=== PATIENT | female | born 1940 | race Caucasian/White ===

== ENCOUNTER 2016-07-28 07:10 | Emergency (ER) | payer OTHER ==
[~2016-07-28] VITALS: Ht 167.6 cm; Wt 86.2 kg
--- NOTE | 2016-07-28 08:17 | CT SCAN REPORT ---
EXAMINATION: CT HEAD WITHOUT CONTRAST CLINICAL INFORMATION: Advancing dimension. Increased confusion COMPARISON: July 2016 TECHNIQUE: Contiguous axial imaging was performed from the skull base to vertex without intravenous administration of contrast. DLP: 600 mGy-cm FINDINGS: There is no evidence of acute intracranial hemorrhage or territorial infarction. No abnormal mass effect or midline shift is seen. Hemphill to white matter differentiation is well preserved. No extra-axial fluid collections are identified. Slight prominence of the ventricles commensurate with that of the basal cisterns and sulci compatible with age-related volume loss.. Patchy periventricular and deep white matter hypoattenuation consistent with mild small vessel ischemic changes. The osseous structures and soft tissues are normal. There is persistent but slightly increased chronic mucosal thickening of the maxillary sinuses IMPRESSION: No acute intracranial pathology.
--- NOTE | 2016-07-28 08:17 | RADIOLOGY REPORT ---
EXAMINATION: XR CHEST CLINICAL INFORMATION: Advancing dementia. Increased confusion. COMPARISON: None TECHNIQUE: 2 views of the chest were obtained. FINDINGS: No acute significant abnormality is noted involving the heart, lungs, mediastinum, bony thorax or soft tissues. Incidental note is made of mild multilevel spondylosis of the dorsal spine. Calcification of the dorsal aorta. IMPRESSION: No acute disease
--- NOTE | 2016-07-28 08:19 | ED AMS/SEIZURE/WEAK/DIZZY ---
History of Present Illness General Chief Complaint: Altered Mental Status Stated Complaint: AMS Source: patient, family, old records Exam Limitations: dementia Vital Signs & Intake/Output Vital Signs & Intake/Output Vital Signs Date Time Temp Pulse Resp B/P Pulse O2 O2 Flow FiO2 Ox Delivery Rate 07/28 1012 97.7 81 18 117/70 94 Room Air 07/28 0909 97.6 72 18 127/69 99 Room Air Room Air 07/28 0717 96.0 81 18 127/83 97 Room Air Allergies Coded Allergies: Penicillins (Severe, CONVULSIONS 12/29/15) STATINS ("REAL BAD BODY ACHES, CAN'T MOVE" 12/29/15) Reconcile Medications Donepezil HCl (Unknown Strength) TABLET (Unknown Dose) PO DAILY DEMENTIA ( Reported) Ergocalciferol (Vitamin D2) (Vitamin D2) 50,000 UNIT CAPSULE 1 CAP PO QFRI SUPPLEMENT (Reported) Levothyroxine Sodium (Levoxyl) (Unknown Strength) TABLET (Unknown Dose) PO DAILY AC THYROID (Reported) Losartan Potassium (Unknown Strength) TABLET (Unknown Dose) PO DAILY HEART ( Reported) Memantine HCl (Namenda) (Unknown Strength) TABLET (Unknown Dose) PO BID DEMENTIA (Reported) Pantoprazole Sodium (Protonix) 20 MG TABLET.DR 1 TAB PO DAILY GI (Reported) Pravastatin Sodium 20 MG TABLET 1 TAB PO DAILY CHOLESTEROL (Reported) Risperidone (Risperdal) (Unknown Strength) TABLET (Unknown Dose) PO QPM MENTAL HEALTH (Reported) Trazodone HCl 50 MG TABLET 1 TAB PO QPM insomnia Triage Note: 76 Y/O FEMALE BROUGHT IN BY FAMILY FOR EVAL OF ALTERED MENTAL STATUS SINCE YESTERDAY. PT HAS HX ALZHEIMERS AND FAMILY STATES "SHE WAS TALKING TO PEOPLE THAT WEREN'T THERE. YESTERDAY SHE TOOK ALL THE FOOD OUT OF THE REFRIGERATOR AND PUT CHEEZE WHIZ, [place] CITIZEN DRESSING AND JUICE IN A GLASS AND WAS GOING TO DRINK IT ...". FAMILY ALSO STATES PT IS USING THE BATHROOM MORE FREQUENTLY, QUESTIONS UTI. PT PLEASANT AND COOPERATIVE IN TRIAGE STATING "I FEEL PERFECTLY FINE". DENIES PAIN. DENIES N/V/D. AFEBRILE. Triage Nurses Notes Reviewed? yes Onset: Last week Duration: day(s):, continues in ED, getting worse Timing: recent history Injury Environment: home Severity: moderate No Modifying Factors: none LMP (ages 10-50): post menopausal : No Patient currently breastfeeds: No HPI: 1 week prior to admission daughter reports patient has had reverse sleeping pattern sleeping all day up all night. She has had worsening short-term memory recall bizarre eating such as putting any mustard on ravioli and making a concoction of cheesewhiz honey mustard and german dressing in a glass to drink. Her grandson notes she's had increased urinary frequency over the last day. There is no report of head injury fever chills nausea vomiting diarrhea abdominal pain chest pain shortness breath headache dysuria rash bleeding. Past History Travel History Traveled to [place] past 21 day No Medical History Any Pertinent Medical History? 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 No Review of Systems Review of Systems Constitutional: Reports: no symptoms. EENTM: Reports: no symptoms. Respiratory: Reports: no symptoms. Cardiovascular: Reports: no symptoms. GI: Reports: no symptoms. Genitourinary: Reports: see HPI, frequency. Musculoskeletal: Reports: no symptoms. Skin: Reports: no symptoms. Neurological/Psychological: Reports: see HPI, cognitive dysfunction, confusion. Hematologic/Endocrine: Reports: no symptoms. Immunologic/Allergic: Reports: no symptoms. All Other Systems: Reviewed and Negative Physical Exam Physical Exam General Appearance: well developed/nourished, alert, awake, anxious, comfortable , obese Head: atraumatic, normal appearance Eyes: Bilateral: normal appearance, PERRL, EOMI. Ears, Nose, Throat: normal pharynx, normal ENT inspection Neck: normal inspection, supple, full range of motion, no midline tenderness Respiratory: normal breath sounds, chest non-tender, no respiratory distress, quiet respiration, lungs clear Cardiovascular: regular rate/rhythm, normal peripheral pulses, norml femoral pulses equa Peripheral Pulses: 4+ carotid (R), 4+ carotid (L) Gastrointestinal: normal bowel sounds, soft, non-tender, no organomegaly Back: normal inspection, normal range of motion, no vertebral tenderness Extremities: normal range of motion, no ligament instability Neurologic/Psych: no motor/sensory deficits, awake, alert, normal gait, 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 Skin: intact, normal color, warm/dry Lymphatic: no anterior cervical mariusz Core Measures ACS in differential dx? No CVA/TIA Diagnosis: No Severe Sepsis Present: No Septic Shock Present: No Progress Differential Diagnosis: CVA/stroke, electrolyte imbalance, hypoglycemia, hypoxia , intracranial Hem., subarachnoid Hem. Plan of Care: Orders Procedure Date/time Status Straight Cath 07/28 916 Active TSH REFLEX 07/29 747 Complete COMPREHENSIVE METABOLIC PANEL 07/29 747 Complete CBC WITHOUT DIFFERENTIAL 07/29 747 Complete CULTURE,URINE 07/28 726 Active URINALYSIS 07/28 726 Complete Laboratory Tests 07/28/1645: Urinalysis MOD H, Urine Color YEL, Urine Clarity CLEAR, Urine pH 6.0, Ur Specific Mack <= 1.005, Urine Protein NEG, Urine Ketones NEG, Urine Nitrite NEG, Urine Bilirubin NEG, Urine Urobilinogen 0.2, Ur Leukocyte Esterase NEG, Ur Microscopic SEDIMENT EXAMINED, Urine RBC RARE, Urine WBC RARE, Ur Epithelial Cells MOD H, Urine Bacteria FEW H, Urine Mucus RARE, Urine Hemoglobin TRACE- INTACT, Urine Glucose NEG 07/28/16 0818: Anion Gap 13, Estimated GFR 34 L, BUN/Creatinine Ratio 10.7, Glucose 86, Calcium 9.7, Total Bilirubin 0.9, AST 22, ALT 35, Alkaline Phosphatase 108, Total Protein 7.2, Albumin 4.2, Globulin 3.0, Albumin/Globulin Ratio 1.4, TSH & T3 &Free T4 Intrp 0.880, CBC w Diff NO MAN DIFF REQ, RBC 4.54, MCV 88.9, MCH 30.1, RDW 13.2, MPV 7.0 L, Gran % 73.4, Lymphocytes % 19.2 L, Monocytes % 6.6, Eosinophils % 0.1, Basophils % 0.7, Absolute Granulocytes 6.4, Absolute Lymphocytes 1.7, Absolute Monocytes 0.6, Absolute Eosinophils 0, Absolute Basophils 0.1, PUBS MCHC 33.9 Microbiology 07/28 944 URINE ROUT: Urine Culture - RECD Diagnostic Imaging: Viewed by Me: Radiology Read, CT Scan. Discussed w/RAD: Radiology Read, CT Scan. Radiology Impression: no acute abnormality CXR Impression: no acute abnormality, no infiltrates Initial ED EKG: none Departure Departure Time of Disposition: 1049 Disposition: HOME OR SELF CARE Condition: Stable Clinical Impression Primary Impression: Altered mental status, unspecified Secondary Impressions: Dementia, Hyponatremia Referrals: VIRAL EVANS,TANI Busch Departure Forms: Customer Survey General Discharge Information Prescriptions: Current Visit Scripts Trazodone HCl 1 TAB PO QPM #30 TAB
[2016-07-28] MEDS ORDERED: LOSARTAN POTASS25 M1 PO (08:21)
[2016-07-28] MEDS ORDERED: PRAVASTATIN SOD20 M2 PO (08:21)
[2016-07-28] MEDS ORDERED: PROTONIX20 M1 PO (08:21)
[2016-07-28] MEDS ORDERED: DONEPEZIL HCL5 MG PO (08:22)
[2016-07-28] MEDS ORDERED: LEVOXYL50 MCG PO (08:22)
[2016-07-28] MEDS ORDERED: VITAMIN D250000 UNIT PO (08:23)
[2016-07-28] MEDS ORDERED: RISPERDAL1 M1 PO (08:23)
[2016-07-28] MEDS ORDERED: NAMENDA10 M2 PO (08:24)
[2016-07-28 08:32] LABS: ABSOLUTE BASOPHIL COUNT 0.1 /CUMM (0.0-0.2); ABSOLUTE EOSINOPHIL COUNT 0 /CUMM (0.0-0.7); ABSOLUTE GRANULOCYTE CT 6.4 /CUMM (1.4-6.5); ABSOLUTE LYMPH COUNT 1.7 /CUMM (1.2-3.4); ABSOLUTE MONOCYTE COUNT 0.6 /CUMM (0.10-0.60); BASOPHIL % 0.7 % (0.0-2.0); EOSINOPHIL % 0.1 % (0-5); GRANULOCYTE % 73.4 % (42.2-75.2); HEMATOCRIT 40.3 % (37-47); MEAN CORPUSCULAR HGB 30.1 PG (27.0-31.0); MEAN CORPUSCULAR HGB CONC 33.9 G/DL (33.0-37.0); MEAN CORPUSCULAR VOLUME 88.9 FL (81.0-99.0); PLATELET COUNT 464 /CUMM (130-400); RBC DISTRIBUTION WIDTH 13.2 % (11.5-14.5); RED BLOOD CELL CT 4.54 /CUMM (4.20-5.40); WHITE BLOOD CELL COUNT 8.7 /CUMM (4.8-10.8)
[2016-07-28 10:12] VITALS: BP 117/70
[2016-07-28] MEDS ORDERED: TRAZODONE HCL50 M1 PO (10:51)
== END 2016-07-28 11:01 ==
LOC: ERH 07:10
PROVIDERS: Emergency Medicine
DX: R41.82 Altered mental status, unspecified (principal); F03.90 Unspecified dementia, unspecified severity, without behavioral disturbance, psychotic disturbance, mood disturbance, and anxiety; E87.1 Hypo-osmolality and hyponatremia; E03.9 Hypothyroidism, unspecified; R35.0 Frequency of micturition
CPT/HCPCS: 81001; 87086

== ENCOUNTER → 2016-11-03 | Day surgery (SDC) | payer OTHER ==
[~2016-11-03] VITALS: Ht 167.6 cm; Wt 101.6 kg
[~2016-11-03] MED LIST: DONEPEZIL HCL5 MG PO; LEVOXYL50 MCG PO; LOSARTAN POTASS25 M1 PO; NAMENDA10 M2 PO; PRAVASTATIN SOD20 M2 PO; PROTONIX20 M1 PO; RISPERDAL1 M1 PO; TRAZODONE HCL50 M1 PO; VITAMIN D250000 UNIT PO
--- NOTE | 2016-11-03 10:32 | Operative Report ---
Operative/Inv Procedure Report Surgery Date: 11/03/16 Name of Procedure: Complex cataract extraction lens implantation left eye Pre-Operative Diagnosis: Complex age-related cataract left eye 20/150 vision Post-Operative Diagnosis: Same Estimated Blood Loss: none Surgeon/Lpn Medical Assistant: MAGALIE EVANS,CONCHA Jones Anesthesia: local monitored anesthesi Complications: None Operative/Procedure Note Note: The patient was brought to the operating room standard monitoring equipment was attached the patient was prepped and draped in the usual fashion for intraocular surgery. A lid speculum was placed to retract the lids. The case was begun by making a temporal incision with a 2.4 mm keratome. The eye was stabilized with a Merchant ring during this incision. 1 mL of non-preserved lidocaine was introduced into the anterior chamber to provide anesthesia. The anterior chamber was then filled and deepened with viscoelastic. Since the pupil was very small attempted dilation was done with intracameral epinephrine this did not work and so the iris was stretched using 2 Kuglen hooks introduced through the main and paracentesis sites. In a cross action manner the proximal were spread apart from each other to enlarge the iris. The anterior chamber was then deepened with viscoelastic. A curvilinear capsulorrhexis was achieved using a 30-gauge needle and is a cystotome and capsulorrhexis was finished using a Utrata forceps. A second or paracentesis incision was made temporally with a 1 mm MVR blade. The lens was then hydrodissected with balanced salt solution and found to be rotatable. The lens was emulsified using phacoemulsification and a modified four-quadrant cracking technique. The residual cortical material was removed using automated irrigation and aspiration and as much of the anterior capsular rim was cleaned as well as possible. The posterior capsule was cleaned first with the automated machine on a low setting and then manually with a Logan squeegee. The capsular bag was deepened with viscoelastic. The lens a Technis 1 21.0 Diopter placed into the bag under direct visualization and rotated so that the haptics were at 12 and 6:00. Viscoelastic was then removed from the eye by flushing it out and then by automated irrigation and aspiration. The eye was pressurized to a normal tone. Miostat was introduced into the anterior chamber to try and bring the pupil back down. 1/10 of a cc of vancomycin solution was introduced into the anterior chamber to provide antibiotic prophylaxis. The wounds were sealed by hydrating the stroma adjacent to them and the eye was left at a proper tone after the wounds were checked and found not to be leaking. The lid speculum was removed from the orbit. Antibiotic and steroid drops were placed on the eye and then the eye was shielded. Monitoring equipment was removed from the patient and the patient was removed from the operative suite to the holding area. The patient tolerated the procedure well and will be seen in the office tomorrow.
== END ==
LOC: STS 04:30
DX: H25.89 Other age-related cataract (principal); H21.2 Degeneration of iris and ciliary body; I10 Essential (primary) hypertension; J45.909 Unspecified asthma, uncomplicated; G30.9 Alzheimer's disease, unspecified; F02.80 Dementia in other diseases classified elsewhere, unspecified severity, without behavioral disturbance, psychotic disturbance, mood disturbance, and anxiety; Z86.73 Personal history of transient ischemic attack (TIA), and cerebral infarction without residual deficits
CPT/HCPCS: J2250; V2632

== ENCOUNTER 2016-11-23 18:37 | Observation (INO) | payer OTHER ==
[~2016-11-23] VITALS: Ht 167.6 cm; Wt 94.3 kg
[~2016-11-23 18:37] MED LIST changes: +CITALOPRAM HBR10 MG PO
--- NOTE | 2016-11-23 18:44 | NUR ---
PT STEPHANIE FROM [facility], PER EMS PATIENT HAD A 1-2 MIN SYNCOPAL EPISODE WHILE SEATED. PER FAMILY PATIENT STATED, "I DON'T FEEL WELL" AND THEN "WENT LIMP". PT DENIES CHEST PAIN OR SOB. PER FAMILY SHE HAD AN EPISODE OF INCONTINENCE AT THE TIME. NO KNOWN SEIZURE DISORDER.
--- NOTE | 2016-11-23 18:56 | ED SYNCOPE COMPLAINT ---
History of Present Illness General Chief Complaint: General Adult Stated Complaint: SYNCOPAL EPISODE Source: patient, family, old records, EMS Exam Limitations: dementia Vital Signs & Intake/Output Vital Signs & Intake/Output Vital Signs Date Time Temp Pulse Resp B/P B/P Pulse O2 O2 Flow FiO2 Mean Ox Delivery Rate 11/25 1159 96.7 72 20 140/70 11/25 1053 98.2 64 18 160/68 11/25 0949 64 160/68 ED Intake and Output 11/26 0000 11/25 1200 Intake Total 480 100 Output Total Balance 480 100 Intake, Oral 480 100 Number 1 Bowel Movements Allergies Coded Allergies: Penicillins (Severe, CONVULSIONS 12/29/15) STATINS ("REAL BAD BODY ACHES, CAN'T MOVE" 12/29/15) Triage Note: PT BIBA FROM [facility], PER EMS PATIENT HAD A 1-2 MIN SYNCOPAL EPISODE WHILE SEATED. PER FAMILY PATIENT STATED, "I DON'T FEEL WELL" AND THEN "WENT LIMP". PT DENIES CHEST PAIN OR SOB. PER FAMILY SHE HAD AN EPISODE OF INCONTINENCE AT THE TIME. NO KNOWN SEIZURE DISORDER. Triage Nurses Notes Reviewed? yes HPI: PT WAS SITTING OUTSIDE WITH HER FAMILY. SHE STATED THAT SHE DIDN'T FEEL WELL AND THEN HAD A WITNESSED SYNCOPAL EPISODE. SHE DID NOT FALL OUT OF THE CHAIR. SHE WAS LOWERED TO THE GROUND AND SHE WOKE UP. PT CURRENTLY FEELS FINE. SHE DENIES CHEST PAIN OR PALPITATIONS. PT HAS DEMENTIA AND IS UNABLE TO PROVIDE FURTHER HISTORY. (ALEX EVANS,BRAD Acosta) Reconcile Medications Amlodipine Besylate 5 MG TABLET 5 MG PO DAILY HYPERTENSION Citalopram Hydrobromide (Citalopram HBr) 10 MG TABLET 1 TAB PO QAM MENTAL HEALTH (Reported) Donepezil HCl (Unknown Strength) TABLET 10 MG PO AT BEDTIME MEMORY (Reported) Ergocalciferol (Vitamin D2) (Vitamin D2) 50,000 UNIT CAPSULE 1 CAP PO QFRI SUPPLEMENT (Reported) Levothyroxine Sodium (Levoxyl) (Unknown Strength) TABLET 37.5 MCG PO DAILY AC THYROID (Reported) Losartan Potassium 50 MG TABLET 50 MG PO DAILY HYPERTENSION Memantine HCl (Namenda) (Unknown Strength) TABLET 10 MG PO BID DEMENTIA ( Reported) Pantoprazole Sodium (Protonix) 40 MG TABLET.DR 1 TAB PO AT BEDTIME ACID REFLUX (Reported) Pravastatin Sodium 40 MG TABLET 1 TAB PO DAILY ACID REFLUX (Reported) Risperidone (Risperdal) (Unknown Strength) TABLET 0.5 MG PO QAM MENTAL HEALTH (Reported) (MARIA ALEJANDRA EVANS,JENNIFER) Past History Travel History Traveled to [place] past 21 day No Medical History Any Pertinent Medical History? 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 No (ALEX EVANS,BRAD Acosta) Review of Systems Review of Systems Constitutional: Reports: no symptoms. EENTM: Reports: no symptoms. Respiratory: Reports: no symptoms. Cardiovascular: Reports: no symptoms. GI: Reports: no symptoms. Genitourinary: Reports: no symptoms. Musculoskeletal: Reports: no symptoms. Skin: Reports: no symptoms. Neurological/Psychological: Reports: no symptoms. All Other Systems: Reviewed and Negative (ALEX EVANS,BRAD Acsota) Physical Exam Physical Exam General Appearance: well developed/nourished, alert, awake, anxious, mild distress Head: atraumatic Eyes: Bilateral: PERRL, EOMI. Ears, Nose, Throat: normal pharynx, normal ENT inspection, hearing grossly normal Neck: normal inspection, supple, full range of motion Respiratory: normal breath sounds, chest non-tender, no respiratory distress, lungs clear Cardiovascular: regular rate/rhythm, normal peripheral pulses Gastrointestinal: normal bowel sounds, soft, non-tender, no organomegaly Back: normal inspection, normal range of motion Extremities: normal inspection, normal capillary refill, normal range of motion, no edema Psychiatric: awake, alert, ORIENTED TO BASELINE PER FAMILY Cranial Nerves: normal hearing, normal speech, PERRL Motor/Sensory: no motor/sensory deficits Skin: intact, normal color, warm/dry Core Measures ACS in differential dx? Yes CVA/TIA Diagnosis: No Severe Sepsis Present: No Septic Shock Present: No (BRAD JOHNSON MD) Progress Differential Diagnosis: AMI, aortic dissection, aortic valve, drug induced syncope, orthostatic syncope, pericardial tamponade, pulmonary embolus, seizure, sick sinus syndrome, ventricular tach/fib Plan of Care: Orders Procedure Date/time Status Discharge Patient 11/25 UNK Active 7:16 PM PATIENT SIGNED OUT TO ME BY DR JOHNSON. PENDING LABS, IMAGING. (JENNIFER BESS MD) Pre-Hospital EKG: SR WIH DEEP T WAVE INVERSIONS. Hand-Off Endorsed To: JENNIFER BESS MD Endorsed Time: 1899 Pending: EKG, labs (ALEX EVANS,BRAD Acosta) Departure Departure Disposition: STILL A PATIENT Condition: Stable Clinical Impression Primary Impression: Syncope Referrals: CARTER EVANS,DOMINIK Dave (PCP/Family) Departure Forms: Customer Survey General Discharge Information (ALEX EVANS,BRAD Acosta) Departure Prescriptions: Current Visit Scripts Amlodipine Besylate 5 MG PO DAILY #30 TAB Losartan Potassium 50 MG PO DAILY #30 TAB Observation Note Spoke With: JAVIER SHINE MDJulio César Physician Advisor Notified: RUTH VALVERDE DO Place Patient In: Non-ED OBS Care Area Rationale for Observation: My rational for observation is as follows [TELE MONITOR, SERIAL EKG/TROPONIN, CARDIOLOGY EAVLUATION, NEURO EVALUATION, CIWA SCORING, SEIZURE PRECAUTIONS]. (JENNIFER BESS MD)
--- NOTE | 2016-11-23 19:14 | NUR ---
LABS SENT (BLUE,SST,LAV,PÉREZ)
[2016-11-23 19:16] LABS: ABSOLUTE BASOPHIL COUNT 0 /CUMM (0.0-0.2); ABSOLUTE EOSINOPHIL COUNT 0 /CUMM (0.0-0.7); ABSOLUTE GRANULOCYTE CT 6.1 /CUMM (1.4-6.5); ABSOLUTE MONOCYTE COUNT 0.4 /CUMM (0.10-0.60); BASOPHIL % 0.4 % (0.0-2.0); EOSINOPHIL % 0.6 % (0-5); GRANULOCYTE % 80.5 % (42.2-75.2); HEMATOCRIT 39.6 % (37-47); MEAN CORPUSCULAR HGB 31.4 PG (27.0-31.0); MEAN CORPUSCULAR HGB CONC 33.9 G/DL (33.0-37.0); MEAN CORPUSCULAR VOLUME 92.4 FL (81.0-99.0); MEAN PLATELET VOLUME 6.5 FL (7.4-10.4); PLATELET COUNT 307 /CUMM (130-400); RBC DISTRIBUTION WIDTH 13.9 % (11.5-14.5); RED BLOOD CELL CT 4.29 /CUMM (4.20-5.40); WHITE BLOOD CELL COUNT 7.6 /CUMM (4.8-10.8)
--- NOTE | 2016-11-23 19:31 | NUR ---
PER FAMILY PT WAS SITTING DOWN, EYES ROLLED TO BACK OF HEAD AND UNRESPONSIVE. PT PLACED ON FLOOR BY FAMILY. DAUGHTER REPORTS SHE DIDNT FEEL A PULSE, THEN PT SNORED LOUDLY AND CAME BEGAN TALKING. WAS APPROX EPISDODE LASTED LESS THAN 1 MINUTE. DAUGHTER REPORTS THAT PT HAS 3 BEERS NIGHTLY. PT IS ALERT TO NAME.
[2016-11-23 19:45] VITALS: BP 190/80
--- NOTE | 2016-11-23 20:16 | CT SCAN REPORT ---
EXAMINATION: CT HEAD WITHOUT CONTRAST CLINICAL INFORMATION: EKG changes, rule out mass, bleed syncopal episode COMPARISON: 07/28/2016 TECHNIQUE: Contiguous axial imaging was performed from the skull base to vertex without intravenous administration of contrast. FINDINGS: There is atrophy and white matter ischemic change. No midline shift. There is no mass effect. There is no hemorrhage. Basal cisterns appear patent. The posterior fossa risk grossly within normal limits. No extra-axial collection. IMPRESSION: Negative acute noncontrast CT of the brain. Once again atrophy and white matter ischemic changes noted. Persistent maxillary sinus disease. Cannot exclude an air-fluid level in left maxillary sinus
--- NOTE | 2016-11-23 20:23 | NUR ---
TO BEDSIDE COMMODE URINE TRIO SENT
[2016-11-23 20:45] VITALS: BP 189/82
--- NOTE | 2016-11-23 21:42 | NUR ---
URINE TRIO SENT.
--- NOTE | 2016-11-23 21:49 | NUR ---
PT ADMIITTED TO ROOM 189-1
--- NOTE | 2016-11-23 22:15 | History & Physical ---
COLLINS CHIN MD 11/23/16 3565: General Information and HPI MD Statement: I have seen and personally examined TIAGO POWERS I and documented this H&P. The patient is a 76 year old F who presented with a patient stated chief complaint of syncope. Source of Information: patient, family Exam Limitations: dementia History of Present Illness: 76 year old female with PMH significant for HTN, HLD, benign brain tumors, Alzheimers/vascular dementia, and hypothyroidism presents after a syncopal episode witnessed by family. Patient was at a family gathering when noted to not appear well. Patient stated she felt dizzy before her eyes rolled back, she became limp and lost consciousness for less than a minute. She was incontinent of urine at this time. According to family, patient did not seem to have post ictal confusion after the syncopal episode. Patient never fell out of the chair and family denies any falls or head trauma. She lives with her grandson and depends on grandson/daughter for iADLs but is able to ambulate and use the bathroom independently. Patient has intermittent headaches but periodic chest pain for many years that is attributed to indigestion, otherwise ROS is negative. Daughter Elisa has POA [phone]. PCP Manuel, MRI last week at [facility] Allergies/Medications Allergies: Coded Allergies: Penicillins (Severe, CONVULSIONS 12/29/15) STATINS ("REAL BAD BODY ACHES, CAN'T MOVE" 12/29/15) Compliance With Home Meds: GOOD Past History Travel History Traveled to [place] past 21 day No Medical History Neurological: Alzheimer's disease EENT: NONE Cardiovascular: hyperlipidemia Respiratory: NONE Gastrointestinal: GERD Hepatic: NONE Renal: NONE Musculoskeletal: osteoarthritis, ?FX NOSE Psychiatric: NONE Endocrine: hypothyroidism Blood Disorders: NONE Cancer(s): "3 BRAIN TUMORS" DIRECTOR OF MATERNITY SERVICES/Reproductive: NONE Surgical History Surgical History: cataract removal, hysterectomy Past Family/Social History Family History Relations & Conditions if any FATHER FH: brain aneurysm SISTER FH: stroke Psychosocial History ETOH Use: denies use Illicit Drug Use: denies illicit drug use Functional Ability ADLs Independent: toileting. Ambulation: independent IADLs Needs Assist: shopping, housework, finances, food prep, transportation, medication admin. Review of Systems Review of Systems Constitutional: Reports: no symptoms. EENTM: Reports: no symptoms. Cardiovascular: Reports: chest pain (attributed to indigestion), syncope. Respiratory: Denies: cough, short of breath. GI: Denies: abdominal pain, constipation, diarrhea, nausea. Genitourinary: Denies: dysuria, pain, urgency. Musculoskeletal: Reports: no symptoms. Skin: Reports: no symptoms. Neurological/Psychological: Reports: dementia, headache (occasional), other (unsteadiness). Exam & Diagnostic Data Last 24 Hrs of Vital Signs/I&O Vital Signs Date Time Temp Pulse Resp B/P B/P Pulse O2 O2 Flow FiO2 Mean Ox Delivery Rate 11/23 2217 85 20 190/89 11/23 2142 71 20 190/801 11/23 2044 82 20 189/82 11/23 204 80 20 189/82 98 Room Air 11/23 1945 98.1 67 20 190/80 11/23 1930 97 Room Air 11/23 1840 97.2 67 16 176/83 98 Nasal 2.0L Cannula Physical Exam General Appearance Alert, Cooperative, No Acute Distress Skin No Breakdown Skin Temp/Moisture Exam: Warm/Dry Sepsis Skin Exam (color): Normal for Ethnicity HEENT Atraumatic, PERRLA, EOMI, Mucous Membr. moist/pink Neck Supple, No JVD Cardiovascular Regular Rate, Normal S1, Normal S2, No Murmurs Lungs Clear to Auscultation, diminished breath sounds Abdomen Normal Bowel Sounds, Soft, No Tenderness, No Masses Neurological Normal Gait, Normal Speech, Strength at 5/5 X4 Ext, Normal Tone, Sensation Intact, Cranial Nerves 3-12 NL, Reflexes 2+ Extremities No Clubbing, No Cyanosis, No Edema, Normal Pulses Last 24 Hrs of Labs/Jimmy: Laboratory Tests 11/23/16 2020: Urinalysis LIGHT H, Urine Color YEL, Urine Clarity HAZY H, Urine pH 6.0, Ur Specific [place] 1.010, Urine Protein NEG, Urine Ketones NEG, Urine Nitrite NEG, Urine Bilirubin NEG, Urine Urobilinogen 0.2, Ur Leukocyte Esterase NEG, Ur Microscopic SEDIMENT EXAMINED, Urine RBC 1-3, Urine WBC 1-3 H, Ur Epithelial Cells FEW, Urine Hemoglobin TRACE-LYSED, Urine Glucose NEG 11/23/161904: Anion Gap 11, Estimated GFR 54 L, BUN/Creatinine Ratio 10.0, Glucose 111 H, Calcium 9.1, Total Bilirubin 0.9, AST 22, ALT 32, Alkaline Phosphatase 96, Troponin I 0.05, Total Protein 6.3, Albumin 4.0, Globulin 2.3, Albumin/Globulin Ratio 1.7, Prolactin 73.9 H, CBC w Diff NO MAN DIFF REQ, RBC 4.29, MCV 92.4, MCH 31.4 H, RDW 13.9, MPV 6.5 L, Gran % 80.5 H, Lymphocytes % 13.7 L, Monocytes % 4.8, Eosinophils % 0.6, Basophils % 0.4, Absolute Granulocytes 6.1, Absolute Lymphocytes 1.0 L, Absolute Monocytes 0.4, Absolute Eosinophils 0, Absolute Basophils 0, PUBS MCHC 33.9, Serum Alcohol < 10.0 Diagnostic Data EKG Results T wave inversion 1,AVL,chest leads Other Results CT head negative for hemorrhage and ischemic changes Assessment/Plan Assessment: 76 year old female with PMH significant for HTN, HLD, benign brain tumors, Alzheimers/vascular dementia, and hypothyroidism presents after a syncopal episode witnessed by family. 1. Syncope: vasovagal versus arrhythmia versus ACS verus seizure, seizure unlikely given lack of post ictal period in history. CT Head negative T wave inversion in 1, AVL and chest leads, will contact PCP to determine if these inversions are new. Admit to telemetry, monitor for arrythmia Rule out ACS with serial troponins and EKGs Check lipid profile Cardiology consult Echocardiogram Given ASA Neurology consult placed EEG ordered to evaluate seizure Consider starting Keppra for seizure ppx 2. Hypertension Patient's blood pressure was 185/90, responded well to 5mg IV hydralazine x 2. Losartan 50mg PO QD, HCTZ 12.5 mg PO QD monitor BP 3. Hyperlipidemia: Pravastatin 40mg PO QD, follow up lipid panel 4. History of brain tumor: History of benign brain tumors. Patient had recent MRI at [facility] request MRI report. 5. Dementia: Continue donepezil 10mg PO QHs, Risperidone 0.5mg QD, Citalopram 10mg, Namenda 10mg BID 6. Hypothyroidism: Synthroid 0.0375mg PO QD Request records from her PCP Dr. Machado Full Code Heart healthy diet DVT ppx-lovenox Patient's daughter Elisa POA [phone] As Ranked By This Provider Problem List: 1. Dementia 2. Syncope 3. Hypertension 4. Hyperlipidemia Core Measures/Miscellaneous Acute Coronary Syndrome ACS Diagnosis: No Cerebrovascular Accident CVA/TIA Diagnosis: No Congestive Heart Failure CHF Diagnosis: No VTE (View Protocol) VTE Risk Factors: Acute medical illness, Age > 40 [facility] d/t: No contraindications No VTE Pharm Prophylaxis d/t: No contraindications VTE Diagnosis: No VTE Type: NONE VTE Confirmed by (Test): NONE Sepsis (View Protocol) Severe Sepsis Present: No Septic Shock Septic Shock Present: No Miscellaneous Documentation Attending Case Discussed With: KAREN SHINE MD Primary Care Physician: DOMINIK MACHADO MD Patient sees these Specialists neurology Level of Patient Care: Telemetry Consults Needed: Consulting Specialty: Neurology GABE IBRAHIM 11/23/16 2243: Resident Review Statement Resident Statement: examined this patient, discussed with paid intern, agreed with paid intern Other Findings: Patient is 76-year-old female with past medical history significant for hypertension, hyperlipidemia, hypothyroidism, exam is dementia, most of dementia and 3 brain tumors diagnosed in 2009 not following with neurology last 6 years came in with chief complaint of syncopal episode this afternoon. Patient has history of severe dementia and history was taken from her daughter Elisa (BOWEN )was present and her rheumatoid type of interview. Cutting to her patient and family at the clinic and all of a sudden patient was complaining of not feeling good and was trying to go inside and felt dizzy and all of a sudden she passed out for 20 seconds during that she had urinary incontinence and all of a sudden family her that she is snoring and she clenched her teeth with tongue in between but she didn't bite her tongue, no seizure-like activity was noticed and she regained her consciousness within 20 seconds without any post syncopal confusion. Patient denied any palpitations, chest pain, change in her vision prior to or after syncopal episode. Patient is complaining of off-and-on chest pain/hardware within past few aria. She also experiencing intermittent headaches and multiple occasions with the last few seizures. Patient is a former smoker but she drinks alcohol on a regular basis 3-5 beers daily. She never had detox or any withdrawal symptoms. She lives at home with her grandson and her daughter visited her regularly and taking care of her medications and did he needs. Vital signs on admission were temperature 97.2, pulse 67, respiratory rate 16, blood pressure 176/83 and she was saturating 98% on 2 L nasal cannula, Labs were WBC count 7.6, hemoglobin 13.4, hematocrit 39.6, platelet count 307, sodium 136, potassium 3.9, BUNs 10, creatinine 1.0, glucose 111, negative troponins, prolactin 73.9. Urinalysis is clear, serum alcohol level less than 10. Head CT showed negative acute noncontrast CT of the brain EKG showed new T-wave inversion in lead 1 AP are at all chest leads. As compared to EKG in 2005 Physical examination Alert and oriented to time person and place Head atraumatic, anisocoria but both pupils are reactive to light and accommodation. Neck supple Chest clear to auscultate Abdomen soft with no organomegaly Extremities showed no edema or cyanosis On neurological examination, no neurological deficit noted, normal gait, 5 x 5 strength in all extremities. Assessment and plan Patient is 76-year-old female with a history of severe dementia, hypertension, hyperlipidemia and brain tumors came with an episode of syncope today and found to have new EKG changes as compared to previous EKG in 2005 We will observe patient patient on telemetric floor for next 24 hours and will take care for the following problems Problem #1 syncopal episode we will rule out arrhythmias/ACS/seizures Admit for monitoring Will check lipid profile, repeat labs in a.m. We will check echocardiogram We will call cardiology in a.m. Neurology was consulted and did call back from Dr. Reece case was discussed with him regarding suspicion of seizures and's advice regarding starting patient on Keppra. Upon discussion with Dr. Reece is not impressed with seizure and he thought this is most likely syncopal episode and we would not start patient Keppra now. We will do EEG tomorrow and we'll request formal neurology evaluation in a.m. Problem #2 history of hypertension/hyperlipidemia Will start patient on her home medications. Her blood pressure admission were on high site we will give her a single dose of antihypertensive to keep her blood pressure less than 160 systolic. Problem #3 history of brain tumor Had CAT scan without contrast was done and there was no evidence of brain lesion /mass. [facility] was called and head CT was read again by Dr. Chester and again no evidence of mass lesion was noticed. We will request records from her PCP Dr. Machado and as she had recent [facility] at [facility] we will request MRI report in a.m. Problem #4 nonspecific T-wave inversion seen in multiple chest leads and limb leads, not sure these are new or chronic as we don't have any recent EKG. We will request cardiology evaluation in a.m. We will rule out ACS with serial EKGs and troponins as she had history of nonspecific chest pain We will give patient a dose of aspirin Echocardiogram in a.m. Patient is full code Heart healthy diet Pharmacological DVT prophylaxis Of note patient's daughter Elisa who is her power of criminal attorney wants to be informed with all interventions and any new decisions. Her phone number is [phone]. FÁTIMA EVANS, [facility] 11/24/16 0139: General Information and HPI Allergies/Medications Home Med list Citalopram Hydrobromide (Citalopram HBr) 10 MG TABLET 1 TAB PO QAM MENTAL HEALTH (Reported) Donepezil HCl (Unknown Strength) TABLET 10 MG PO AT BEDTIME MEMORY (Reported) Ergocalciferol (Vitamin D2) (Vitamin D2) 50,000 UNIT CAPSULE 1 CAP PO QFRI SUPPLEMENT (Reported) Levothyroxine Sodium (Levoxyl) (Unknown Strength) TABLET 37.5 MCG PO DAILY AC THYROID (Reported) Losartan/Hydrochlorothiazide (Losartan-Hctz 50-12.5 MG Tab) 50 MG-12.5 MG TABLET 1 TAB PO DAILY HIGH BLOOD PRESSURE (Reported) Memantine HCl (Namenda) (Unknown Strength) TABLET 10 MG PO BID DEMENTIA ( Reported) Pantoprazole Sodium (Protonix) 40 MG TABLET.DR 1 TAB PO AT BEDTIME ACID REFLUX (Reported) Pravastatin Sodium 40 MG TABLET 1 TAB PO DAILY ACID REFLUX (Reported) Risperidone (Risperdal) (Unknown Strength) TABLET 0.5 MG PO QAM MENTAL HEALTH (Reported) Attending MD Review Statement Attending Statement Attending MD Statement: examined this patient, discuss w/resident/PA/ASSEMBLY INSPECTOR HELPER, agreed w/resident/PA/ASSEMBLY INSPECTOR HELPER, discussed with family Attending Assessment/Plan: 76 yo obese F with h/o HTN, hypothyroidism, dementia, GERD, 3 brain tumors ( benign, diagnosed 2009), is here for evaluation of a witnessed syncopal event while at a gathering today. Patient reported feeling dizzy and unwell before she slumped (went limp) in her chair. She was unresponsive for about 20 seconds, noted to be incontinent of urine without any active tonic clonic seizure activity. No previous h/o seizure. Upon awakening, patient was alert and not confused. She denied chest pain, palpitations, nausea or diaphoresis. Daughter reports that patient has been c/o heartburn/ gaseous discomfort in her chest for the past year. She has never been evaluated for a cardiac event. Vitals stable except for BP 190/80 --> 180/80. Neurologically intact on exam. 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 Labs: Na 136, troponin neg. Prolactin 73.9, glucose 111. UA neg. Alcohol neg. EKG: SR, diffuse TWI in I, aVL, V1-6 (new compared to EKG of 2005). Head CT: atrophy and white matter ischemic changes, maxillary sinus disease. 1. Syncope, although seizure seems to be a close possibility however patient had no post ictal confusion. Tele 23 Obs, rule out arrhythmias, check orthostats, serial EKG and troponin, obtain Echo, Cardio and Neuro consult. Patient has a h /o 3 brain tumors likely benign (diagnosed 2009) but never followed by a Neurologist. She underwent MRI 2 weeks back at [facility], we need to obtain results of this to assess if the lesions are increasing in size ? seizure from brain tumor. CT head does not show these lesions. This was discussed with oncall neurologist Dr. Reece, who did not think this is a primarily a seizure event, hence holding off on anti-epileptics. Will obtain EEG in AM. 2. Hypertensive urgency/ accelerated hypertension. We will resume her BP meds, will give additional labetalol IV as needed to keep SBP ~ 140-160 mmHg. 3. EKG changes ?acute vs. Chronic. Given patient has been c/o chest discomfort ? heartburn, we will rule out a primary cardiac event, with serial EKG and troponin, give aspirin, check lipid panel, TSH, free T4, HbA1c. Echo and Cardio consult. DVT ppx Hep SC. Full code. Plan of care was discussed with daughter and son in law at bedside. Daughter does not wish for any acute interventions without her knowledge. She would like to be informed about everything. She is the power of criminal attorney. Observation Initial Note - I have personally examined TIAGO POWERS I on 11/24/16 at 0139. The disposition of PRIYAROMINANARAYAN Angela is uncertain at this time and before a determination can be made, she requires a period of observation for the following reasons [syncopal episode, hypertensive urgency.]
[2016-11-23 22:17] VITALS: BP 190/89
--- NOTE | 2016-11-23 22:54 | NUR ---
REPORT CALLED TO CESAR CAMPUZANO
[2016-11-23 23:30] VITALS: BP 128/70
[2016-11-23] MEDS ORDERED: LOSARTAN-HCTZ1 EAC1 PO (23:56)
[2016-11-23] MEDS ORDERED: PROTONIX40 M3 PO (23:58)
[2016-11-23] MEDS ORDERED: PRAVASTATIN SOD40 M2 PO (23:59)
[2016-11-24 06:00] VITALS: BP 152/80
--- NOTE | 2016-11-24 09:38 | PN- Housestaff ---
Assessment/Plan Consulting Request: Consulting Specialty: Neurology
--- NOTE | 2016-11-24 09:39 | PN-Observation ---
FRANCIS LIMA 11/24/16 0938: Observation Note Observation Note _ I have personally examined TIAGO POWERS Ms. is 76 yo F Hospital Day 2 admitted to the hospital for syncope with an episode of urinary incontinence. She has a PMH of HTN, HLD, benign brain tumors, Alzheimer, vascular dementia, hypothyroidism. She is placed on 23 hour observation and is currently doing well. She is in NSR, HR 66-82. Orthostats negative. Her MRI brain (with/without contrast) records were obtained from [facility]. 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 DOS: 11/02/2016 showed small R frontal meningioma with slow growth, stable right vestibular schwannoma, mild to moderate cerebral volume loss. ECHO, EEG pending. Her discharge is pending findings. Assessment/Plan Assessment: Ms. Powers is 76 yo F Hospital Day 2 admitted to the hospital for syncope with an episode of urinary incontinence. She has a PMH of HTN, HLD, benign brain tumors, Alzheimer, vascular dementia, hypothyroidism. 1. Syncope * Continue telemetry monitoring * ECHO pending 2. Possible seizure * EEG ordered, no meds required at this time 3. Hypothyroidism * TSH level nl 4. HTN * Continue Losartan 50mg PO * Continue HCTZ 12.5 mg PO 5. Alzheimers * Continue Donepezil 10 mg QHS Problem List: 1. Syncope Consulting Request: Consulting Specialty: Neurology Subjective Follow-up For: Syncope Possible seizures Tele-Events Since Last Visit: NSR HR 66-82 Review of Systems Constitutional: Reports: see HPI. Objective Last 24 Hrs of Vital Signs/I&O Vital Signs Date Time Temp Pulse Resp B/P B/P Pulse O2 O2 Flow FiO2 Mean Ox Delivery Rate 11/24 1515 97.8 73 20 140/82 97 Room Air 07/05 0910 158/72 07/05 0600 97.2 68 18 152/80 94 Room Air 07/ 2330 97.7 72 20 128/70 99 Room Air / 2249 74 20 180/80 07/ 2217 85 20 190/89 / 2142 71 20 190/801 / 2045 82 20 189/82 / 2040 80 20 189/82 98 Room Air 11/23 1944 98.1 67 20 190/80 11/23 1930 97 Room Air 11/23 1840 97.2 67 16 176/83 98 Nasal 2.0L Cannula Intake & Output 11/24 1600 11/24 0800 11/24 0000 Intake Total 800 1000 Output Total Balance 800 1000 Intake, IV 1000 Intake, Oral 800 Patient 208 lb Weight Weight Estimated Measurement Method Physical Exam General Appearance: Alert, Oriented X3, Cooperative, No Acute Distress Cardiovascular: Normal S1, Normal S2 Lungs: Clear to Auscultation Abdomen: Normal Bowel Sounds, Soft, No Tenderness Neurological: Normal Gait, Normal Speech, Sensation Intact, 4/5 in RLE and LLE, 5/5 in RUE, RUE Current Medications: Current Medications Sig/Dennise Start time Last Medication Dose Route Stop Time Status Admin Acetaminophen 650 MG Q6P PRN 11/23 2244 AC PO Aspirin 0 .STK-MED ONE 11/24 2255 DC PO Aspirin 81 MG ONCE ONE 11/23 2244 DC 11/23 PO 11/23 Citalopram 10 MG QAM 11/24 1000 AC 11/24 Hydrobromide PO 0910 Donepezil HCl 10 MG AT BEDTIME 11/24 2200 DC PO Donepezil HCl 10 MG AT BEDTIME 11/24 0100 AC 11/24 PO 0142 Enoxaparin Sodium 40 MG DAILY 11/24 1000 AC 11/24 SC 0910 Hydralazine HCl 0 .STK-MED ONE 11/23 2246 DC .ROUTE Hydralazine HCl 10 MG ONCE ONE 11/23 2244 DC 11/23 IV 11/23 Hydrochlorothiazide 12.5 MG DAILY 11/24 1000 AC 11/24 PO 0910 Ibuprofen 600 MG Q6P PRN 11/23 2244 AC PO Insulin Human Regular 8 UNITS .STK-MED ONE 11/24 0611 DC IV 11/24 0612 Levothyroxine Sodium 0.0375 MG DAILY AC 11/24 0700 AC 11/24 PO 0910 Losartan Potassium 50 MG DAILY 11/24 1000 AC 11/24 PO 0910 Memantine 10 MG BID 11/24 0005 AC 11/24 PO 0909 Omeprazole 40 MG DAILY AC 11/24 0700 AC 11/24 PO 0651 Oxycodone HCl 10 MG Q6P PRN 07/5 AC PO Pravastatin Sodium 40 MG 1700 11/24 1700 AC 11/24 PO 1627 Risperidone 0.5 MG QAM 11/24 1000 AC 11/24 PO 0910 Sodium Chloride 1,000 ML BOLUS ONE 11/23 1899 DC 11/23 IV 11/23 Last 24 Hrs of Labs/Mics: Laboratory Tests 11/24/16 0930: Troponin I Cancelled 11/24/16 09: Anion Gap 9, Estimated GFR 54 L, BUN/Creatinine Ratio 10.0, Troponin I 0.05, Triglycerides 63, Cholesterol 169, LDL Cholesterol, Calc 97, HDL Cholesterol 60, Cholesterol/HDL Ratio 3, TSH 2.980, CBC w Diff NO MAN DIFF REQ, RBC 4.06 L, MCV 92.2, MCH 31.3 H, RDW 13.8, MPV 7.5, Gran % 71.7, Lymphocytes % 21.0, Monocytes % 5.9, Eosinophils % 1.0, Basophils % 0.4, Absolute Granulocytes 4.9, Absolute Lymphocytes 1.4, Absolute Monocytes 0.4, Absolute Eosinophils 0.1, Absolute Basophils 0, PUBS MCHC 34.0 11/24/16 0200: Troponin I 0.06 11/23/16 2020: Urinalysis LIGHT H, Urine Color YEL, Urine Clarity HAZY H, Urine pH 6.0, Ur Specific [place] 1.010, Urine Protein NEG, Urine Ketones NEG, Urine Nitrite NEG, Urine Bilirubin NEG, Urine Urobilinogen 0.2, Ur Leukocyte Esterase NEG, Ur Microscopic SEDIMENT EXAMINED, Urine RBC 1-3, Urine WBC 1-3 H, Ur Epithelial Cells FEW, Urine Hemoglobin TRACE-LYSED, Urine Glucose NEG 11/23/161904: Anion Gap 11, Estimated GFR 54 L, BUN/Creatinine Ratio 10.0, Glucose 111 H, Calcium 9.1, Total Bilirubin 0.9, AST 22, ALT 32, Alkaline Phosphatase 96, Troponin I 0.05, Total Protein 6.3, Albumin 4.0, Globulin 2.3, Albumin/Globulin Ratio 1.7, Prolactin 73.9 H, CBC w Diff NO MAN DIFF REQ, RBC 4.29, MCV 92.4, MCH 31.4 H, RDW 13.9, MPV 6.5 L, Gran % 80.5 H, Lymphocytes % 13.7 L, Monocytes % 4.8, Eosinophils % 0.6, Basophils % 0.4, Absolute Granulocytes 6.1, Absolute Lymphocytes 1.0 L, Absolute Monocytes 0.4, Absolute Eosinophils 0, Absolute Basophils 0, PUBS MCHC 33.9, Serum Alcohol < 10.0 KADNIS FAGAN 11/24/16 0955: Observation Note Observation Note _ I have personally examined TIAGO POWERS I. her disposition is uncertain at this time. Before a determination can be made, she requires continued observation for the following reasons Assessment/Plan Plan: ASSESSMENT 1. Syncope. Obs, TELE , orthostats NEGATIVE, serial EKG and troponin negative, obtain Echo, Cardio and Neuro consult. Patient has a h/o 3 brain tumors likely benign (diagnosed 2009) but never followed by a Neurologist. She underwent MRI 2 weeks back at [facility], stable MRI findings. CT head does not show these lesions. This was discussed with oncall neurologist Dr. Reece, who did not think this is a primarily a seizure event, hence holding off on anti- epileptics. f/u EEG. 2. Hypertensive urgency/ accelerated hypertension. resumed home meds 3. EKG changes non specific. DVT ppx Hep SC. Full code. Objective Last 24 Hrs of Vital Signs/I&O Vital Signs Date Time Temp Pulse Resp B/P B/P Pulse O2 O2 Flow FiO2 Mean Ox Delivery Rate 11/24 0910 158/72 07/05 0600 97.2 68 18 152/80 94 Room Air 07/ 2330 97.7 72 20 128/70 99 Room Air / 2249 74 20 180/80 07/04 2217 85 20 190/89 / 2142 71 20 190/801 07/ 2045 82 20 189/82 07/ 2040 80 20 189/82 98 Room Air 07/04 1945 98.1 67 20 190/80 07/04 1930 97 Room Air 07/04 1840 97.2 67 16 176/83 98 Nasal 2.0L Cannula Intake & Output / 1600 07/05 0800 07/05 0000 Intake Total 800 1000 Output Total Balance 800 1000 Intake, IV 1000 Intake, Oral 800 Patient 94.347 kg Weight Weight Estimated Measurement Method
[2016-11-24 10:56] LABS: ABSOLUTE BASOPHIL COUNT 0 /CUMM (0.0-0.2); ABSOLUTE EOSINOPHIL COUNT 0.1 /CUMM (0.0-0.7); ABSOLUTE GRANULOCYTE CT 4.9 /CUMM (1.4-6.5); ABSOLUTE LYMPH COUNT 1.4 /CUMM (1.2-3.4); ABSOLUTE MONOCYTE COUNT 0.4 /CUMM (0.10-0.60); BASOPHIL % 0.4 % (0.0-2.0); GRANULOCYTE % 71.7 % (42.2-75.2); HEMATOCRIT 37.4 % (37-47); MEAN CORPUSCULAR HGB 31.3 PG (27.0-31.0); MEAN CORPUSCULAR VOLUME 92.2 FL (81.0-99.0); MEAN PLATELET VOLUME 7.5 FL (7.4-10.4); PLATELET COUNT 295 /CUMM (130-400); RBC DISTRIBUTION WIDTH 13.8 % (11.5-14.5); RED BLOOD CELL CT 4.06 /CUMM (4.20-5.40); WHITE BLOOD CELL COUNT 6.8 /CUMM (4.8-10.8)
--- NOTE | 2016-11-24 11:41 | Cons- Cardiology ---
General Information and HPI Consulting Request Date of Consult: 11/24/16 Requested By: FÁTIMA EVANS,KAREN Reason for Consult: SYNCOPE Source of Information: patient, family Exam Limitations: poor historian History of Present Illness: This is a 76-year-old lady with a past medical history significant for bening brain tumors diagnosed 6 years ago with a f/u MRI 2 weeks ago showing non progression/growth, hypertension, hyperlipidemia, vascular dementia, hypothyroidism, was brought in after having a witnessed syncopal episode. Pt is a poor historian, her daughter who was at bedside contributed a significant part of the history gathering. Patient reports that yesterday, while outisde seated on a chair at November 23 alliance party, she stated to her family members that she was not feeling normal and felt dizzy and looked pale. Immediately after her complaint, she was noticed to be limp and unresponsive. Family member moved her from the chair to the ground and less than a minute she regained conciousness. She was noted to have urinary incontinence (new), however no shaking/jerky movements,automatism, or posticital confusion was noted. Pt also denied any chest pain,palpiation, but was noted to have low 02 sats by EMS (according to family). Pt's daughter endorses a possible remote history of arrhythmias about 30 years ago and congenital heart problem. Patient is unsure of any cardiac history and states that medical issues were managed by her before he . She also reports that her primary care will not be able to report her previous old history. Allergies/Medications Allergies: Coded Allergies: Penicillins (Severe, CONVULSIONS 12/29/15) STATINS ("REAL BAD BODY ACHES, CAN'T MOVE" 12/29/15) Home Med List: Amlodipine Besylate 5 MG TABLET 5 MG PO DAILY HYPERTENSION Citalopram Hydrobromide (Citalopram HBr) 10 MG TABLET 1 TAB PO QAM MENTAL HEALTH (Reported) Donepezil HCl (Unknown Strength) TABLET 10 MG PO AT BEDTIME MEMORY (Reported) Ergocalciferol (Vitamin D2) (Vitamin D2) 50,000 UNIT CAPSULE 1 CAP PO QFRI SUPPLEMENT (Reported) Levothyroxine Sodium (Levoxyl) (Unknown Strength) TABLET 37.5 MCG PO DAILY AC THYROID (Reported) Losartan Potassium 50 MG TABLET 50 MG PO DAILY HYPERTENSION Memantine HCl (Namenda) (Unknown Strength) TABLET 10 MG PO BID DEMENTIA ( Reported) Pantoprazole Sodium (Protonix) 40 MG TABLET.DR 1 TAB PO AT BEDTIME ACID REFLUX (Reported) Pravastatin Sodium 40 MG TABLET 1 TAB PO DAILY ACID REFLUX (Reported) Risperidone (Risperdal) (Unknown Strength) TABLET 0.5 MG PO QAM MENTAL HEALTH (Reported) Review of Systems Review of Systems: Constitutional: Reports: no symptoms. EENTM: Reports: no symptoms. Cardiovascular: Reports: chest pain (attributed to indigestion), syncope. Respiratory: Denies: cough, short of breath. GI: Denies: abdominal pain, constipation, diarrhea, nausea. Genitourinary: Denies: dysuria, pain, urgency. Musculoskeletal: Reports: no symptoms. Skin: Reports: no symptoms. Neurological/Psychological: Reports: dementia, headache (occasional), other (unsteadiness). 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 Ambulation: independent IADLs Needs Assist: shopping, housework, finances, food prep, transportation, medication admin. Exam & Diagnostic Data Vital Signs and I&O Vital Signs Date Time Temp Pulse Resp B/P B/P Pulse O2 O2 Flow FiO2 Mean Ox Delivery Rate 11/24 0910 158/72 07/ 0600 97.2 68 18 152/80 94 Room Air 11/23 2330 97.7 72 20 128/70 99 Room Air 11/23 2249 74 20 180/80 11/23 2217 85 20 190/89 11/23 2142 71 20 190/801 11/23 2045 82 20 189/82 11/23 2040 80 20 189/82 98 Room Air 11/23 1945 98.1 67 20 190/80 / 1930 97 Room Air 11/23 1840 97.2 67 16 176/83 98 Nasal 2.0L Cannula Intake & Output 11/24 0000 11/23 0811/23 0000 Intake Total 800 1000 Output Total Balance 800 1000 Intake, IV 1000 Intake, Oral 800 Patient 94.347 kg Weight Weight Estimated Measurement Method Physical Exam: General Appearance Alert, Cooperative, No Acute Distress Skin No Breakdown Skin Temp/Moisture Exam: Warm/Dry Sepsis Skin Exam (color): Normal for Ethnicity HEENT Atraumatic, PERRLA, EOMI, Mucous Membr. moist/pink Neck Supple, No JVD Cardiovascular Regular Rate, Normal S1, Normal S2, No Murmurs Lungs Clear to Auscultation, diminished breath sounds Abdomen Normal Bowel Sounds, Soft, No Tenderness, No Masses Neurological Normal Gait, Normal Speech, Strength at 5/5 X4 Ext, Normal Tone, Sensation Intact, Cranial Nerves 3-12 NL, Reflexes 2+ Extremities No Clubbing, No Cyanosis, No Edema, Normal Pulses Labs/Jimmy Results: Laboratory Tests 11/24 11/24 11/24 0930 0930 0200 Chemistry Sodium (137 - 145 mmol/L) 136 L Potassium (3.5 - 5.1 mmol/L) 4.1 Chloride (98 - 107 mmol/L) 100 Carbon Dioxide (22 - 30 mmol/L) 26 Anion Gap (5 - 16) 9 BUN (7 - 17 mg/dL) 10 Creatinine (0.5 - 1.0 mg/dL) 1.0 Estimated GFR (>60 ml/min) 54 L BUN/Creatinine Ratio (7 - 25 %) 10.0 Troponin I (< 0.11 ng/ml) Cancelled 0.05 0.06 Triglycerides (<150 mg/dL) 63 Cholesterol (<200 MG/DL) 169 LDL Cholesterol, Calc (65 - 129 mg/dL) 97 HDL Cholesterol (40 - 60 mg/dL) 60 Cholesterol/HDL Ratio (0.00 - 4.23 %) 3 Hematology CBC w Diff NO MAN DIFF REQ WBC (4.8 - 10.8 /CUMM) 6.8 RBC (4.20 - 5.40 /CUMM) 4.06 L Hgb (12.0 - 16.0 G/DL) 12.7 Hct (37 - 47 %) 37.4 MCV (81.0 - 99.0 FL) 92.2 MCH (27.0 - 31.0 PG) 31.3 H RDW (11.5 - 14.5 %) 13.8 Plt Count (130 - 400 /CUMM) 295 MPV (7.4 - 10.4 FL) 7.5 Gran % (42.2 - 75.2 %) 71.7 Lymphocytes % (20.5 - 51.1 %) 21.0 Monocytes % (1.7 - 9.3 %) 5.9 Eosinophils % (0 - 5 %) 1.0 Basophils % (0.0 - 2.0 %) 0.4 Absolute Granulocytes (1.4 - 6.5 /CUMM) 4.9 Absolute Lymphocytes (1.2 - 3.4 /CUMM) 1.4 Absolute Monocytes (0.10 - 0.60 /CUMM) 0.4 Absolute Eosinophils (0.0 - 0.7 /CUMM) 0.1 Absolute Basophils (0.0 - 0.2 /CUMM) 0 PUBS MCHC (33.0 - 37.0 G/DL) 34.0 /11/23 2020 1905 Chemistry Sodium (137 - 145 mmol/L) 136 L Potassium (3.5 - 5.1 mmol/L) 3.9 Chloride (98 - 107 mmol/L) 98 Carbon Dioxide (22 - 30 mmol/L) 26 Anion Gap (5 - 16) 11 BUN (7 - 17 mg/dL) 10 Creatinine (0.5 - 1.0 mg/dL) 1.0 Estimated GFR (>60 ml/min) 54 L BUN/Creatinine Ratio (7 - 25 %) 10.0 Glucose (65 - 99 mg/dL) 111 H Calcium (8.4 - 10.2 mg/dL) 9.1 Total Bilirubin (0.2 - 1.3 mg/dL) 0.9 AST (14 - 36 U/L) 22 ALT (9 - 52 U/L) 32 Alkaline Phosphatase (<127 U/L) 96 Troponin I (< 0.11 ng/ml) 0.05 Total Protein (6.3 - 8.2 g/dL) 6.3 Albumin (3.5 - 5.0 g/dL) 4.0 Globulin (1.9 - 4.2 gm/dL) 2.3 Albumin/Globulin Ratio (1.1 - 2.2 %) 1.7 Prolactin (3.0 - 18.6 ng/mL) 73.9 H Hematology CBC w Diff NO MAN DIFF REQ WBC (4.8 - 10.8 /CUMM) 7.6 RBC (4.20 - 5.40 /CUMM) 4.29 Hgb (12.0 - 16.0 G/DL) 13.4 Hct (37 - 47 %) 39.6 MCV (81.0 - 99.0 FL) 92.4 MCH (27.0 - 31.0 PG) 31.4 H RDW (11.5 - 14.5 %) 13.9 Plt Count (130 - 400 /CUMM) 307 MPV (7.4 - 10.4 FL) 6.5 L Gran % (42.2 - 75.2 %) 80.5 H Lymphocytes % (20.5 - 51.1 %) 13.7 L Monocytes % (1.7 - 9.3 %) 4.8 Eosinophils % (0 - 5 %) 0.6 Basophils % (0.0 - 2.0 %) 0.4 Absolute Granulocytes (1.4 - 6.5 /CUMM) 6.1 Absolute Lymphocytes (1.2 - 3.4 /CUMM) 1.0 L Absolute Monocytes (0.10 - 0.60 /CUMM) 0.4 Absolute Eosinophils (0.0 - 0.7 /CUMM) 0 Absolute Basophils (0.0 - 0.2 /CUMM) 0 PUBS MCHC (33.0 - 37.0 G/DL) 33.9 Toxicology Serum Alcohol (<10 MG/DL) < 10.0 Urines Urinalysis LIGHT H Urine Color (YEL,AMB,STR) YEL Urine Clarity (CLEAR) HAZY H Urine pH (5.0 - 8.0) 6.0 Ur Specific [place] (1.001 - 1.035) 1.010 Urine Protein (NEG,<30 MG/DL) NEG Urine Ketones (NEG) NEG Urine Nitrite (NEG) NEG Urine Bilirubin (NEG) NEG Urine Urobilinogen (0.1 - 1.0 EU/dl) 0.2 Ur Leukocyte Esterase (NEG) NEG Ur Microscopic SEDIMENT EXAMINED Urine RBC (0 - 5 /HPF) 1-3 Urine WBC (0 - 2 /HPF) 1-3 H Ur Epithelial Cells (NONE,FEW) FEW Urine Hemoglobin (NEG) TRACE-LYSED Urine Glucose (N MG/DL) NEG Diagnostic Data EKG Results Abnormal diffuse T wave inversion in precordial,lead 1 and AVL leads. Other Results SERVICE DATE: 11/23/16 EXAM TYPE: CAT - CT HEAD WO IV CONTRAST EXAMINATION: CT HEAD WITHOUT CONTRAST CLINICAL INFORMATION: EKG changes, rule out mass, bleed syncopal episode COMPARISON: 07/28/2016 TECHNIQUE: Contiguous axial imaging was performed from the skull base to vertex without intravenous administration of contrast. FINDINGS: There is atrophy and white matter ischemic change. No midline shift. There is no mass effect. There is no hemorrhage. Basal cisterns appear patent. The posterior fossa risk grossly within normal limits. No extra-axial collection. IMPRESSION: Negative acute noncontrast CT of the brain. Once again atrophy and white matter ischemic changes noted. Persistent maxillary sinus disease. Cannot exclude an air-fluid level in left maxillary sinus DICTATED BY: RUTH IQBAL MD Assessment/Plan Assessment/Plan This is a 76-year-old lady with multiple past medical history of benign multiple brain tumors with no progression since diagnosis 6 years ago, hypertension, hyperlipidemia, Alzheimer's, vascular dementia, hypothyroidism presented after having a witnessed syncopal event lasting less than a minute. No seizure-like activities was noted, no noted overnight telemetry events unremarkable for any arrhythmias. Orthostatics are negative. Blood glucose obtained was unremarkable for any hypoglycemia during admission. It is noted that the patient EKG shows T -wave inversions in lead 1, aVL and precordial leads with family members noting that last EKG done in 2005 did not have these findings.. Impression * Witnessed syncopal event. Patient with a history of benign brain tumors having an episode of syncopal events is always concerning for seizures. However the lack of seizure-like activities and no focal neurological deficits makes it unlikely that the brain tumors are responsible for patient's presentation. Patient's family does give a remote history of possible arrhythmias and congenital heart disease, therefore her syncopal event could possibly be cardiogenic. She does have T wave inversions, however no conduction abnormality on EKG noted, and her o/n telemetry monitoring was uneventful. ACS ruled out as no chest pain and negative trops/negative ischemic changes on EKG other than T wave inversion. Vasovagal syncope is also a possible etiology (she did have a premonition), esepcially if cardio/seizures is completely excluded. She does take HCTZ and given she was outside on a hot day,dehydration is possible cause, however her ortho stats were negative,did not appear dry on admission, and she did not have any tachycardia. * History of hypertension. Currenlty uncontrolled. * History of hyperlipidemia * History of hypothyroidism Plan * Will await echocardiogram to rule out any structural abnormalities * Obtain TSH levels * Continue Losartan/hctz * Other medical condition: management per medical team * Continue to Telemetry monitoring Problem List: 1. Syncope Consult Acknowledgment - Thank you for your consult request.
--- NOTE | 2016-11-24 12:06 | Cons- Neurology ---
General Information and HPI Consulting Request Date of Consult: 11/24/16 Requested By: FÁTIMA EVANS,ALISSONALAKSHMI Reason for Consult: Transient alteration of consciousness Source of Information: family, housestaff Exam Limitations: unable to give history History of Present Illness: 76 year old woman with known dementia was sitting outside yesterday afternoon for a barbecue. She told her daughter she did not feel well and within a few moments while still seated her head slumped forward and she became unresponsive. Her daughter believes her eyes rolled up he shouldn't lost control of her bladder but tongue biting and no abnormal motor activity. When assistance cane they placed her flat on the ground and she began to wake up. She was at her usual level of mentation. No history of seizures. Remote history of dysrhythmias. No other associated complaints or problems were noted by family Allergies/Medications Allergies: Coded Allergies: Penicillins (Severe, CONVULSIONS 12/29/15) STATINS ("REAL BAD BODY ACHES, CAN'T MOVE" 12/29/15) Home Med List: Citalopram Hydrobromide (Citalopram HBr) 10 MG TABLET 1 TAB PO QAM MENTAL HEALTH (Reported) Donepezil HCl (Unknown Strength) TABLET 10 MG PO AT BEDTIME MEMORY (Reported) Ergocalciferol (Vitamin D2) (Vitamin D2) 50,000 UNIT CAPSULE 1 CAP PO QFRI SUPPLEMENT (Reported) Levothyroxine Sodium (Levoxyl) (Unknown Strength) TABLET 37.5 MCG PO DAILY AC THYROID (Reported) Losartan/Hydrochlorothiazide (Losartan-Hctz 50-12.5 MG Tab) 50 MG-12.5 MG TABLET 1 TAB PO DAILY HIGH BLOOD PRESSURE (Reported) Memantine HCl (Namenda) (Unknown Strength) TABLET 10 MG PO BID DEMENTIA ( Reported) Pantoprazole Sodium (Protonix) 40 MG TABLET.DR 1 TAB PO AT BEDTIME ACID REFLUX (Reported) Pravastatin Sodium 40 MG TABLET 1 TAB PO DAILY ACID REFLUX (Reported) Risperidone (Risperdal) (Unknown Strength) TABLET 0.5 MG PO QAM MENTAL HEALTH (Reported) Current Medications: Current Medications Sig/Dennise Start time Last Medication Dose Route Stop Time Status Admin Acetaminophen 650 MG Q6P PRN 11/23 2244 AC PO Aspirin 0 .STK-MED ONE 11/24 2255 DC PO Aspirin 81 MG ONCE ONE 11/23 2244 DC 11/23 PO 11/23 2245 224 Citalopram 10 MG QAM 11/24 1000 AC 11/24 Hydrobromide PO 0910 Donepezil HCl 10 MG AT BEDTIME 11/24 2200 DC PO Donepezil HCl 10 MG AT BEDTIME / 0100 AC 11/24 PO 0142 Enoxaparin Sodium 40 MG DAILY 11/24 1000 AC 11/24 SC 0910 Hydralazine HCl 0 .STK-MED ONE 11/23 2246 DC .ROUTE Hydralazine HCl 10 MG ONCE ONE 11/23 2245 DC 11/23 IV 11/23 2245 224 Hydrochlorothiazide 12.5 MG DAILY 11/24 1000 AC 11/24 PO 0910 Ibuprofen 600 MG Q6P PRN 11/23 2245 AC PO Levothyroxine Sodium 0.0375 MG DAILY AC 11/24 0700 AC 11/24 PO 0910 Losartan Potassium 50 MG DAILY 11/24 1000 AC 11/24 PO 0910 Memantine 10 MG BID 11/24 0005 AC 11/24 PO 0909 Omeprazole 40 MG DAILY AC 11/24 0700 AC 11/24 PO 0651 Oxycodone HCl 10 MG Q6P PRN 11/23 2245 AC PO Pravastatin Sodium 40 MG 1700 11/24 1700 AC PO Risperidone 0.5 MG QAM 11/24 1000 AC 11/24 PO 0910 Sodium Chloride 1,000 ML BOLUS ONE 11/23 1900 DC 11/23 IV 11/23 1959 1907 Review of Systems Review of Systems: ROS: A complete medical systems review was obtained. No pertinent complaints were found. 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 Ambulation: independent IADLs Needs Assist: shopping, housework, finances, food prep, transportation, medication admin. Exam & Diagnostic Data Vital Signs and I&O Vital Signs Date Time Temp Pulse Resp B/P B/P Pulse O2 O2 Flow FiO2 Mean Ox Delivery Rate 11/24 0910 158/72 11/24 06 97.2 68 18 152/80 94 Room Air 11/23 2330 97.7 72 20 128/70 99 Room Air 11/23 2249 74 20 180/80 11/23 2217 85 20 190/89 11/23 2142 71 20 190/801 11/23 2045 82 20 189/82 11/23 2040 80 20 189/82 98 Room Air 11/23 1945 98.1 67 20 190/80 11/23 1930 97 Room Air 11/23 1840 97.2 67 16 176/83 98 Nasal 2.0L Cannula Intake & Output 11/24 1600 11/24 0800 07 0000 Intake Total 800 1000 Output Total Balance 800 1000 Intake, IV 1000 Intake, Oral 800 Patient 208 lb Weight Weight Estimated Measurement Method Physical Exam: On exam she is lying comfortably in bed, fully awake and engaged in conversation with family. 8. No bruits or murmur. intact. Logically she was oriented to name only, could not give the date or location. There were no language errors in casual conversation, no dysarthria but her speech is mildly accented from [place]. General fund of knowledge and memory severely impaired. Visual christian full. Pupils quite small, 2 mm on the right and about 2.5 mm on the left, unable to see a light reaction. Eye movements were full in all directions, no ptosis, visual christian full. Unable to visualize fundi due to myosis. No facial asymmetry, tongue protrusion midline, uvula midline, shoulder shrug symmetric. Handgrips strong, moves 4 extremities normally, tone normal. No cerebellar signs. Tendon reflexes hypoactive but symmetric, plantar responses downgoing Last 48 Hours of Lab Results: Laboratory Tests 11/24 11/24 11/24 0930 0930 0200 Chemistry Sodium (137 - 145 mmol/L) 136 L Potassium (3.5 - 5.1 mmol/L) 4.1 Chloride (98 - 107 mmol/L) 100 Carbon Dioxide (22 - 30 mmol/L) 26 Anion Gap (5 - 16) 9 BUN (7 - 17 mg/dL) 10 Creatinine (0.5 - 1.0 mg/dL) 1.0 Estimated GFR (>60 ml/min) 54 L BUN/Creatinine Ratio (7 - 25 %) 10.0 Troponin I (< 0.11 ng/ml) Cancelled 0.05 0.06 Triglycerides (<150 mg/dL) 63 Cholesterol (<200 MG/DL) 169 LDL Cholesterol, Calc (65 - 129 mg/dL) 97 HDL Cholesterol (40 - 60 mg/dL) 60 Cholesterol/HDL Ratio (0.00 - 4.23 %) 3 Hematology CBC w Diff NO MAN DIFF REQ WBC (4.8 - 10.8 /CUMM) 6.8 RBC (4.20 - 5.40 /CUMM) 4.06 L Hgb (12.0 - 16.0 G/DL) 12.7 Hct (37 - 47 %) 37.4 MCV (81.0 - 99.0 FL) 92.2 MCH (27.0 - 31.0 PG) 31.3 H RDW (11.5 - 14.5 %) 13.8 Plt Count (130 - 400 /CUMM) 295 MPV (7.4 - 10.4 FL) 7.5 Gran % (42.2 - 75.2 %) 71.7 Lymphocytes % (20.5 - 51.1 %) 21.0 Monocytes % (1.7 - 9.3 %) 5.9 Eosinophils % (0 - 5 %) 1.0 Basophils % (0.0 - 2.0 %) 0.4 Absolute Granulocytes (1.4 - 6.5 /CUMM) 4.9 Absolute Lymphocytes (1.2 - 3.4 /CUMM) 1.4 Absolute Monocytes (0.10 - 0.60 /CUMM) 0.4 Absolute Eosinophils (0.0 - 0.7 /CUMM) 0.1 Absolute Basophils (0.0 - 0.2 /CUMM) 0 PUBS MCHC (33.0 - 37.0 G/DL) 34.0 11/23 190 Chemistry Sodium (137 - 145 mmol/L) 136 L Potassium (3.5 - 5.1 mmol/L) 3.9 Chloride (98 - 107 mmol/L) 98 Carbon Dioxide (22 - 30 mmol/L) 26 Anion Gap (5 - 16) 11 BUN (7 - 17 mg/dL) 10 Creatinine (0.5 - 1.0 mg/dL) 1.0 Estimated GFR (>60 ml/min) 54 L BUN/Creatinine Ratio (7 - 25 %) 10.0 Glucose (65 - 99 mg/dL) 111 H Calcium (8.4 - 10.2 mg/dL) 9.1 Total Bilirubin (0.2 - 1.3 mg/dL) 0.9 AST (14 - 36 U/L) 22 ALT (9 - 52 U/L) 32 Alkaline Phosphatase (<127 U/L) 96 Troponin I (< 0.11 ng/ml) 0.05 Total Protein (6.3 - 8.2 g/dL) 6.3 Albumin (3.5 - 5.0 g/dL) 4.0 Globulin (1.9 - 4.2 gm/dL) 2.3 Albumin/Globulin Ratio (1.1 - 2.2 %) 1.7 Prolactin (3.0 - 18.6 ng/mL) 73.9 H Hematology CBC w Diff NO MAN DIFF REQ WBC (4.8 - 10.8 /CUMM) 7.6 RBC (4.20 - 5.40 /CUMM) 4.29 Hgb (12.0 - 16.0 G/DL) 13.4 Hct (37 - 47 %) 39.6 MCV (81.0 - 99.0 FL) 92.4 MCH (27.0 - 31.0 PG) 31.4 H RDW (11.5 - 14.5 %) 13.9 Plt Count (130 - 400 /CUMM) 307 MPV (7.4 - 10.4 FL) 6.5 L Gran % (42.2 - 75.2 %) 80.5 H Lymphocytes % (20.5 - 51.1 %) 13.7 L Monocytes % (1.7 - 9.3 %) 4.8 Eosinophils % (0 - 5 %) 0.6 Basophils % (0.0 - 2.0 %) 0.4 Absolute Granulocytes (1.4 - 6.5 /CUMM) 6.1 Absolute Lymphocytes (1.2 - 3.4 /CUMM) 1.0 L Absolute Monocytes (0.10 - 0.60 /CUMM) 0.4 Absolute Eosinophils (0.0 - 0.7 /CUMM) 0 Absolute Basophils (0.0 - 0.2 /CUMM) 0 PUBS MCHC (33.0 - 37.0 G/DL) 33.9 Toxicology Serum Alcohol (<10 MG/DL) < 10.0 Urines Urinalysis LIGHT H Urine Color (YEL,AMB,STR) YEL Urine Clarity (CLEAR) HAZY H Urine pH (5.0 - 8.0) 6.0 Ur Specific [place] (1.001 - 1.035) 1.010 Urine Protein (NEG,<30 MG/DL) NEG Urine Ketones (NEG) NEG Urine Nitrite (NEG) NEG Urine Bilirubin (NEG) NEG Urine Urobilinogen (0.1 - 1.0 EU/dl) 0.2 Ur Leukocyte Esterase (NEG) NEG Ur Microscopic SEDIMENT EXAMINED Urine RBC (0 - 5 /HPF) 1-3 Urine WBC (0 - 2 /HPF) 1-3 H Ur Epithelial Cells (NONE,FEW) FEW Urine Hemoglobin (NEG) TRACE-LYSED Urine Glucose (N MG/DL) NEG Imaging/Other Studies: CT scan of the head: There is atrophy and white matter ischemic change. No midline shift. There is no mass effect. There is no hemorrhage. Basal cisterns appear patent. The posterior fossa risk grossly within normal limits. No extra-axial collection. Assessment/Plan Assessment: Transient loss of consciousness. History most consistent with a syncopal attack. Prolactin was elevated but this cannot lightly distinguish between seizure or syncope. History of benign cerebral tumors not seen on noncontrast CT but nonfocal exam and now fully awake Recommendations: EEG Would hold off on empiric antiseizure medication unless the EEG shows epileptiform activity or further events suggestive of seizure occur in the future Consult Acknowledgment - Thank you for your consult request.
--- NOTE | 2016-11-24 14:22 | Patient Discharge Instructions ---
Discharge Instructions General Discharge Information You were seen/treated for: Syncope You had these procedures: None Special Instructions: follow-up with your primary care physician within 1-2 weeks after discharge. Follow up with concession cashier in 1-2 weeks after discharge. Follow-up neurologist in 1-2 weeks after discharge. We provided referral to concession cashier Tenzin Martin MD and neurologist Dr. Shanell Breen. Recent MRI brain done as an outpatient showed very slow growth of right meningioma and right schwannoma. Please continue to follow-up with your primary care provider. hctz discontinued. started amlodipine 5mg for hypertension Diet Continue normal diet: Yes Activity Full Activity/No Limits: Yes Acute Coronary Syndrome Inclusion Criteria At DC or during hospital stay patient has or had the following: ACS DIAGNOSIS No Discharge Core Measures Meds if any: Prescribed or Continued at Discharge Meds if any: NOT Prescribed or Continued at Discharge Congestive Heart Failure Inclusion Criteria At DC or during hospital stay patient has or had the following: CHF DIAGNOSIS No Discharge Core Measures Meds if any: Prescribed or Continued at Discharge Meds if any: NOT Prescribed or Continued at Discharge Cerebrovascular accident Inclusion Criteria At DC or during hospital stay patient has or had the following: CVA/TIA Diagnosis No Discharge Core Measures Meds if any: Prescribed or Continued at Discharge Meds if any: NOT Prescribed or Continued at Discharge Venous thromboembolism Inclusion Criteria VTE Diagnosis No VTE Type NONE VTE Confirmed by (Test) NONE Discharge Core Measures - Per Current guidelines, there needs to be overlap - treatment for the first 5 days of Warfarin therapy. - If discharged on Warfarin prior to 5 days of - overlap therapy, the patient will need to be - assessed for post discharge needs including - *Post discharge parental anticoagulation - *Warfarin and/or parental anticoagulation education - *Follow up date to check INR post discharge At least 5 days overlap therapy as Inpatient No Meds if any: Prescribed or Continued at Discharge Note: Overlap Therapy is Warfarin and Anticoagulant Meds if any: NOT Prescribed or Continued at Discharge
[2016-11-24 15:15] VITALS: BP 140/82
--- NOTE | 2016-11-24 20:15 | ELECTROENCEPHALOGRAM REPORT ---
Electroencephalogram Report Electroencephalogram Results Date of service: 11/24/16 Attending MD: KAREN SHINE MD Strategic Buyer: Robert Kimball EEG Number: [id number] Test Utilizes: 10-20 system, 21 lead 18 channel digital recording Pertinent Hx/Physical/Neuro Findings/Clin Diagnosis: Syncope vs seizure Inpatient Medications: Current Medications Sig/Dennise Start time Last Medication Dose Route Stop Time Status Admin Acetaminophen 650 MG Q6P PRN 11/23 2245 AC PO Aspirin 0 .STK-MED ONE 11/24 2255 DC PO Aspirin 81 MG ONCE ONE 11/23 2244 DC 11/23 PO 11/236 2249 Citalopram 10 MG QAM 11/24 1000 AC 11/24 Hydrobromide PO 0910 Donepezil HCl 10 MG AT BEDTIME 11/24 2200 DC PO Donepezil HCl 10 MG AT BEDTIME 11/24 0100 AC 11/24 PO 0142 Enoxaparin Sodium 40 MG DAILY 11/24 1000 AC 11/24 SC 0910 Hydralazine HCl 0 .STK-MED ONE 11/23 2246 DC .ROUTE Hydralazine HCl 10 MG ONCE ONE 11/235 DC 11/23 IV 11/236 2249 Hydrochlorothiazide 12.5 MG DAILY 11/24 1000 AC 11/24 PO 0910 Ibuprofen 600 MG Q6P PRN 11/23 2245 AC PO Insulin Human Regular 8 UNITS .STK-MED ONE 11/24 0611 DC IV 11/24 0612 Levothyroxine Sodium 0.0375 MG DAILY AC 11/24 0700 AC 11/24 PO 0910 Losartan Potassium 50 MG DAILY 11/24 1000 AC 11/24 PO 0910 Memantine 10 MG BID 11/24 0005 AC 11/24 PO 0909 Omeprazole 40 MG DAILY AC 11/24 0700 AC 11/24 PO 0651 Oxycodone HCl 10 MG Q6P PRN 11/23 2245 AC PO Pravastatin Sodium 40 MG 1700 11/24 1700 AC 11/24 PO 1627 Risperidone 0.5 MG QAM 11/24 1000 AC 11/24 PO 0910 Interpretation: The background reveals 6-7 Hz low amplitude theta and irregular 8-9 Hz alpha in approximately equal proportions. A small amount of muscle and movement artifact is present. no focal, lateralized or epileptiform abnormalities are found. Hyperventilation was deferred but photic stimulation was done and normal. Impression: Mild generalized slowing of the backgrounds without focal or epileptiform features.
[2016-11-24 21:46] VITALS: BP 160/82
[2016-11-25 06:45] VITALS: BP 132/70
--- NOTE | 2016-11-25 07:26 | PN-Observation ---
FRANCIS LIMA 11/25/16 0725: Observation Note Observation Note _ I have personally examined TIAGO POWERS I. Her disposition is uncertain at this time. Before a determination can be made, she requires continued observation pending ECHO findings. Ms. Powers is 76 year old female with PMH for HTN, HLD, benign brain tumors, Alzheimers/vascular dementia, and hypothyroidism presents after a syncopal episode witnessed by family. She is placed on 23 hour observation and is currently doing well. Overnight she was in NSR, HR 61-66, asymptomatic first degree AVB. Her BP ranged in 130-160 and amlodipine 5 mg QD was added to her current regimen. Her EEG results came back negative and her discharge will be reviewed pending ECHO results. Her plan was discussed with her and family members were present at the time EEG 11/24/16 Impression: Mild generalized slowing of the backgrounds without focal or epileptiform features. Assessment/Plan Assessment: A: Ms. Powers is 76 yo F Hospital Day 3 admitted to the hospital for syncope with an episode of urinary incontinence. She has a PMH of HTN, HLD, benign brain tumors, Alzheimer, vascular dementia, hypothyroidism. P: 1. Syncope * Continue telemetry monitoring * ECHO results pending 2. Possible seizure * EEG negative, no further workup warranted 3. Hypothyroidism * TSH nl 4. HTN * Continue Losartan 50mg PO * Discontinue HCTZ 12.5 mg PO start Amlodipine 5mg PO due to possible vasovagal syncope 5. Alzheimers * Continue Donepezil 10 mg QHS Problem List: 1. Syncope Consulting Request: Consulting Specialty: Neurology Subjective Follow-up For: Syncope Tele-Events Since Last Visit: NSR, 1 deg AVB 61-66 Review of Systems Constitutional: Reports: see HPI. Objective Last 24 Hrs of Vital Signs/I&O Vital Signs Date Time Temp Pulse Resp B/P B/P Pulse O2 O2 Flow FiO2 Mean Ox Delivery Rate 11/25 1159 96.7 72 20 140/70 11/25 1053 98.2 64 18 160/68 11/25 0949 64 160/68 11/25 0645 98.2 64 18 132/70 94 Room Air 11/24 2146 99.0 68 14 160/82 95 Room Air 11/24 1515 97.8 73 20 140/82 97 Room Air Intake & Output 11/25 1600 11/25 0800 0706 0000 Intake Total 100 200 Output Total Balance 100 200 Intake, Oral 100 200 Physical Exam General Appearance: Alert, Oriented X3, Cooperative, No Acute Distress HEENT: Atraumatic, PERRLA Neck: Supple, No JVD Cardiovascular: Normal S1, Normal S2 Lungs: Clear to Auscultation, Normal Air Movement Abdomen: Soft, No Tenderness Current Medications: Current Medications Sig/Dennise Start time Last Medication Dose Route Stop Time Status Admin Acetaminophen 1,000 MG .STK-MED ONE 11/24 1403 DC PO 11/24 1404 Acetaminophen 650 MG Q6P PRN 11/23 2245 AC PO Citalopram 10 MG QAM 11/24 1000 AC 11/24 Hydrobromide PO 0910 Donepezil HCl 10 MG AT BEDTIME 11/24 0100 AC 11/24 PO 2115 Enoxaparin Sodium 40 MG DAILY 11/24 1000 AC 11/24 SC 0910 Hydrochlorothiazide 12.5 MG DAILY 11/24 1000 AC 11/24 PO 0910 Ibuprofen 600 MG Q6P PRN 11/23 2245 AC PO Levothyroxine Sodium 0.0375 MG DAILY AC 11/24 07 AC 11/25 PO 0540 Losartan Potassium 50 MG DAILY 11/24 1000 AC 11/24 PO 0910 Memantine 10 MG BID 11/24 0005 AC 11/24 PO 2115 Omeprazole 40 MG DAILY AC 11/24 0700 AC 11/25 PO 0657 Oxycodone HCl 10 MG Q6P PRN 11/23 2245 AC PO Pravastatin Sodium 40 MG 1700 11/24 1700 AC 11/24 PO 1627 Risperidone 0.5 MG QAM 11/24 1000 AC 11/24 PO 0910 Last 24 Hrs of Labs/Mics: Laboratory Tests 11/24/16929: Troponin I Cancelled 11/24/16929: Anion Gap 9, Estimated GFR 54 L, BUN/Creatinine Ratio 10.0, Troponin I 0.05, Triglycerides 63, Cholesterol 169, LDL Cholesterol, Calc 97, HDL Cholesterol 60, Cholesterol/HDL Ratio 3, TSH 2.980, CBC w Diff NO MAN DIFF REQ, RBC 4.06 L, MCV 92.2, MCH 31.3 H, RDW 13.8, MPV 7.5, Gran % 71.7, Lymphocytes % 21.0, Monocytes % 5.9, Eosinophils % 1.0, Basophils % 0.4, Absolute Granulocytes 4.9, Absolute Lymphocytes 1.4, Absolute Monocytes 0.4, Absolute Eosinophils 0.1, Absolute Basophils 0, PUBS MCHC 34.0 KANDIS FAGAN 11/25/16 1025: Addendum Addendum ASSESSMENT 1. Syncope. Obs, TELE , orthostats NEGATIVE, serial EKG and troponin negative, f /u Echo, Cardio and Neuro appreciated. Patient has a h/o 3 brain tumors likely benign (diagnosed 2009) but never followed by a Neurologist. She underwent MRI 2 weeks back at [facility] radiology [place], stable MRI findings. CT head does not show these lesions. This was discussed with oncall neurologist Dr. Reece, who did not think this is a primarily a seizure event, hence holding off on anti- epileptics. EEG negative. 2. Hypertensive urgency/ accelerated hypertension. changed hctz to amlodipine. c /w losartan 3. EKG changes non specific. DVT ppx Hep SC. Full code. anticipate dc today. f/u o/p PCP in 3-5 days, plan of care dwed patient and daughter bedside 2. Hypertensive urgency/ accelerated hypertension. changed hctz to amlodipine. c /w losartan 3. EKG changes non specific. DVT ppx Hep SC. Full code. anticipate dc today.
[2016-11-25 11:59] VITALS: BP 140/70
[2016-11-25] MEDS ORDERED: LOSARTAN POTASS50 M1 PO (13:11)
[2016-11-25] MEDS ORDERED: AMLODIPINE BESYL5 M1 PO (13:11)
--- NOTE | 2016-11-25 15:39 | ECHOCARDIOGRAM REPORT ---
TIAGO POWERS Age: 76 : 1940 Gender: F Exam Date: 11/25/2016 08:42 Exam Location: 1 [place] Ht (in): 66 Wt (lb): 208 BSA: 2.13 BP: 128 / 70 Ordering Physician: YESSENIA MOULTON M Referring Physician: YESSENIA MOULTON MD Technologist: Patel Huggins [facility] Room Number: 189-1 Indications: PRESYNCOPE/SYNCOPE Rhythm: Sinus Technical Quality: Fair FINDINGS Left Ventricle Normal global left ventricular size, wall thickness, systolic function with no obvious regional wall motion abnormalities. Normal left ventricular ejection fraction estimated at 55-60%. Right Ventricle Normal right ventricular size and function. Right Atrium Normal right atrial size. Left Atrium Mild left atrial dilatation. Mitral Valve Mitral valve thickened. Mild mitral regurgitation. Aortic Valve Trileaflet aortic valve. Diffuse thickening (sclerosis) of the aortic valve cusps without reduced excursion. No aortic stenosis. Trace to mild aortic regurgitation. Tricuspid Valve Tricuspid valve not well visualized, grossly normal. Mild tricuspid regurgitation. Right ventricular systolic pressure estimated at 40 mmHg. Pulmonic Valve Pulmonic valve not well visualized, grossly normal. Pericardium Minimal pericardial effusion (normal variant). Great Vessels Aortic root and proximal ascending aorta not well visualized, grossly normal. CONCLUSIONS 1. Mild aortic sclerosis is present with minimal to mild aortic insufficiency. 2. Mitral leaflet thickening is present with mild mitral insufficiency and mild left atrial enlargement. 3. A physiologic pericardial effusion is present. 4. THe left ventricular chamber size and systolic function appear normal. 5. Mild tricuspid insufficiency is present with no evidence of significant pulmonary hypertension. Tenzin Martin M.D. (Electronically Signed) Final Date: 25 November 2016 15:39 MEASUREMENTS (Male / Female) Normal Values 2D ECHO LV Diastolic Diameter PLAX 4.9 cm 4.2 - 5.9 / 3.9 - 5.3 cm LV Systolic Diameter PLAX 3.0 cm 2.1 - 4.0 cm LV Fractional Shortening PLAX 38.8 % 25 - 46 % LV Ejection Fraction 2D Teich 69.0 % IVS Diastolic Thickness 1.2 cm LVPW Diastolic Thickness 1.2 cm LV Relative Wall Thickness 0.5 RV Internal Dim ED PLAX 3.1 cm 1.9 - 3.8 cm LVOT Diameter 1.7 cm Aortic Root Diameter 2.5 cm LA Systolic Diameter LX 3.4 cm 3.0 - 4.0 / 2.7 - 3.8 cm LA Volume 48.0 cm 18 - 58 / 22 - 52 cm Ascending Aorta Diameter 3.4 cm DOPPLER AV Peak Velocity 148.0 cm/s AV Peak Gradient 8.8 mmHg AV Mean Velocity 90.5 cm/s AV Mean Gradient 4.0 mmHg AV Velocity Time Integral 33.0 cm AI Deceleration Ellis 172.0 cm/s AI Peak Velocity 328.0 cm/s AI Pressure Half Time 558.0 ms AI Peak Gradient 43.0 mmHg LVOT Peak Velocity 91.0 cm/s LVOT Peak Gradient 3.3 mmHg LVOT Mean Velocity 53.4 cm/s LVOT Mean Gradient 1.0 mmHg LVOT Velocity Time Integral 22.8 cm LVOT Stroke Volume 51.8 cm AV Area Cont Eq vti 1.6 cm AV Area Cont Eq pk 1.4 cm MV Peak Velocity 85.5 cm/s MV Peak Gradient 2.9 mmHg MV Mean Velocity 49.4 cm/s MV Mean Gradient 1.0 mmHg Mitral E Point Velocity 91.8 cm/s Mitral A Point Velocity 86.4 cm/s Mitral E to A Ratio 1.1 MV PHT Velocity 85.5 cm/s MV Deceleration Ellis 249.0 cm/s MV Pressure Half Time 103.0 ms MV Area PHT 2.1 cm MV Deceleration Time 187.0 ms TR Peak Velocity 297.0 cm/s TR Peak Gradient 35.3 mmHg Right Atrial Pressure 10.0 mmHg Pulmonary Artery Systolic Pressu 45.3 mmHg Right Ventricular Systolic Press 45.3 mmHg PV Peak Velocity 81.3 cm/s PV Peak Gradient 2.6 mmHg PV Mean Velocity 63.4 cm/s PV Mean Gradient 2.0 mmHg PV Velocity Time Integral 21.6 cm LV E' Lateral Velocity 7.0 cm/s Mitral E to LV E' Lateral Ratio 13.1 LV E' Septal Velocity 7.8 cm/s Mitral E to LV E' Septal Ratio 11.8
== END 2016-11-25 14:35 ==
LOC: ERH 18:37 → 1NO 21:01 → ERHI 21:01 → ENRESERV 21:44 → ENTRNSPT 22:56 → 1NO 23:16 → CMPTRNSPT 11-24 07:03 → 1NO 11-25 09:46 → ENPENDDIS 11-25 13:34 → 1NO 11-25 14:35
PROVIDERS: Emergency Medicine; Internal Medicine; ADMIT Student in an Organized Health Care Education/Training Program
DX: R55 Syncope and collapse (principal); I10 Essential (primary) hypertension; E78.5 Hyperlipidemia, unspecified; F01.50 Vascular dementia, unspecified severity, without behavioral disturbance, psychotic disturbance, mood disturbance, and anxiety; E03.9 Hypothyroidism, unspecified; G30.9 Alzheimer's disease, unspecified; F02.80 Dementia in other diseases classified elsewhere, unspecified severity, without behavioral disturbance, psychotic disturbance, mood disturbance, and anxiety; K21.9 Gastro-esophageal reflux disease without esophagitis
CPT/HCPCS: 81001; 82436; 93005; 93010; 93306; 95816; 96372; 96374; G0378; G0480; J0360; J1650; J1815; J3490

== ENCOUNTER 2017-10-09 17:55 | Inpatient (IN) | payer OTHER ==
[~2017-10-09] VITALS: Ht 172.7 cm; Wt 84.2 kg
[~2017-10-09 17:55] MED LIST changes: +AMLODIPINE BESYL5 M1 PO; +LASIX20 M1 PO; +LOSARTAN POTASS50 M1 PO; +LOSARTAN-HCTZ1 EAC1 PO; +PRAVASTATIN SOD40 M2 PO; +PROTONIX40 M3 PO
--- NOTE | 2017-10-09 18:18 | ED GENERAL ADULT ---
History of Present Illness General Chief Complaint: General Adult Stated Complaint: CONFUSED, FOUND TO BE VERY CONFUSED Source: patient, family, old records, EMS Exam Limitations: confusion, dementia Vital Signs & Intake/Output Vital Signs & Intake/Output Vital Signs Date Time Temp Pulse Resp B/P B/P Pulse O2 O2 Flow FiO2 Mean Ox Delivery Rate 10/09 2026 97.2 72 18 175/79 100 Room Air 10/09 180 97.1 78 18 190/77 98 Room Air ED Intake and Output 10/10 0000 10/09 1200 Intake Total 0 Output Total Balance 0 Intake, Oral 0 Allergies Coded Allergies: Penicillins (Severe, CONVULSIONS 12/29/15) STATINS ("REAL BAD BODY ACHES, CAN'T MOVE" 12/29/15) Triage Note: PT BIBA FROM HOME. PER EMS REPORT PT WAS FOUND BY FAMILY WANDERING AROUND IN THE YARD. PT HAS HX OF DEMENTIA AND PER EMS IS CONFUSED AT BASELINE. PER EMS NO CHANGED IN BASELINE MENTAL STATUS. PT ARRIVES ALERT TO PERSON ONLY. OFFERS NO COMPLAINTS. Triage Nurses Notes Reviewed? yes HPI: Patient has also was dementia. Patient lives at home with her grandson. She went to lay down for nap so he went out the gym. While he was at the gym she decided to get up and wander around the back yard without any shoes on. Her neighbor found her and noticed that she was more confused than normal. Patient comes in for evaluation. Patient has no chronic complaints. Patient is unable to provide any further history. (Mervin EVANS,Dino Acosta) Reconcile Medications Amlodipine Besylate 5 MG TABLET 5 MG PO DAILY HYPERTENSION Citalopram Hydrobromide (Citalopram HBr) 10 MG TABLET 1 TAB PO QAM MENTAL HEALTH (Reported) Ergocalciferol (Vitamin D2) (Vitamin D2) 50,000 UNIT CAPSULE 1 CAP PO QFRI SUPPLEMENT (Reported) Furosemide (Lasix) 20 MG TABLET 1 TAB PO DAILY PRN pedal edema Levothyroxine Sodium 25 MCG TABLET 1.5 TAB PO DAILY HYPOTHYROIDISM (Reported) Losartan Potassium 50 MG TABLET 50 MG PO DAILY HYPERTENSION Memantine HCl (Namenda) 10 MG TABLET 1 TAB PO BID DEMENTIA (Reported) Pantoprazole Sodium (Protonix) 40 MG TABLET.DR 1 TAB PO AT BEDTIME ACID REFLUX (Reported) Pravastatin Sodium 40 MG TABLET 1 TAB PO DAILY HLD (Reported) Risperidone (Risperdal) 1 MG TABLET 0.5 MG PO QAM MENTAL HEALTH (Reported) (Suzan EVANS,Chris Vizcaino) Past History Medical History Any Pertinent Medical History? 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 No (Mervin EVANS,Dino Acosta) Review of Systems Review of Systems Constitutional: Reports: see HPI. (Mervin EVANS,Dino Acosta) Physical Exam Physical Exam General Appearance: well developed/nourished, awake Head: atraumatic, normal appearance Eyes: Bilateral: PERRL, EOMI. Ears, Nose, Throat: normal pharynx, normal ENT inspection, hearing grossly normal Neck: normal inspection, supple, full range of motion Respiratory: normal breath sounds, chest non-tender, no respiratory distress, lungs clear Cardiovascular: regular rate/rhythm, normal peripheral pulses Gastrointestinal: normal bowel sounds, soft, non-tender, no organomegaly Back: normal inspection, normal range of motion Extremities: normal inspection, normal capillary refill, normal range of motion, no edema Neurologic/Psych: no motor/sensory deficits, awake, normal mood/affect Skin: intact, normal color, warm/dry Lymphatic: no anterior cervical mariusz Core Measures ACS in differential dx? No CVA/TIA Diagnosis: No Sepsis Present: No Sepsis Focused Exam Completed? No (Mervin EVANS,Dino Acosta) Progress Differential Diagnoses I considered the following diagnoses in my evaluation of the patient: [UTI, pneumonia, electrolyte abnormality] Plan of Care: Orders Procedure Date/time Status Nothing by Mouth 10/10 B Active ICU LAB BUNDLE 10/10 0500 Active CORTISOL AM 10/10 0500 Active CBC WITHOUT DIFFERENTIAL 10/10 050 Active BASIC ELECTROLYTES PLUS BUN&CR 10/10 0300 Active Regular Diet 10/09 D Complete CULTURE,URINE 10/09 2310 Active VRE ACTIVE SURVIELLANCE 10/09 2308 Active ACTIVE SURVEILLANCE NARES 10/10 2307 Active BASIC ELECTROLYTES PLUS BUN&CR 10/09 2299 Complete Pathway - chart 10/09 2140 Active House Staff 10/09 2140 Active Weight 10/09 2140 Active Patient Data 10/09 2117 Active Saline Lock 10/10 2055 Active Misc Message 10/10 2055 Active ED Holding Orders 10/10 2055 Active Admit to inpatient 10/10 2055 Active Vital Signs 10/10 2055 Active Code Status 10/10 2055 Active URINE OSMOLALITY 10/09 184 Complete URINE LYTES, SPOT 10/09 184 Complete THYROID STIMULATING HORMONE 10/09 184 Complete SERUM OSMOLALITY 10/09 184 Complete FREE T4 10/09 184 Complete Straight Cath 10/09 1817 Active URINALYSIS 10/09 181 Complete TROPONIN LEVEL 10/09 1817 Complete COMPREHENSIVE METABOLIC PANEL 10/09 181 Complete CBC WITHOUT DIFFERENTIAL 10/09 181 Complete EKG 10/09 181 Active Intake & Output 10/09 180 Complete Lab Add-on Test 10/09 UNK Active VTE Mechanical Prophylaxis 10/09 UNK Active MISTAKE 10/09 UNK Active Intake & Output 10/09 UNK Active Harley, Insertion/Removal/Asses 10/09 UNK Active CIWA 10/09 UNK Active Current Medications Sig/Dennise Start time Last Medication Dose Stop Time Status Admin Atorvastatin Calcium 20 MG 1700 10/10 1700 CAN (Lipitor) Pravastatin Sodium 40 MG 1700 10/10 1700 AC (Pravachol) Amlodipine Besylate 5 MG DAILY 10/10 09 AC (Norvasc) Citalopram 10 MG QAM 10/10 09 AC Hydrobromide (Celexa) Losartan Potassium 50 MG DAILY 10/10 09 AC (Cozaar) Risperidone 0.5 MG QAM 10/10 09 AC (risperiDONE) Levothyroxine Sodium 0.0375 MG DAILY AC 10/10 07 AC (Synthroid) Omeprazole 40 MG DAILY AC 10/10 699 AC (Prilosec) Memantine 10 MG BID 10/09 2302 AC 10/10 (Namenda) 0117 Laboratory Tests 10/09/17 2315: Anion Gap 11, Estimated GFR 53 L, BUN/Creatinine Ratio 8.0 10/09/17 184: Urine Color YEL, Urine Clarity CLEAR, Urine pH 6.0, Ur Specific [place] 1.010, Urine Protein NEG, Urine Ketones 15 H, Urine Nitrite NEG, Urine Bilirubin NEG, Urine Urobilinogen 0.2, Ur Leukocyte Esterase NEG, Ur Microscopic EXAM NOT REQUIRED, Urine Hemoglobin NEG, Urine Glucose NEG 10/09/17 1849: Anion Gap 14, Estimated GFR 48 L, BUN/Creatinine Ratio 8.2, Glucose 85, Serum Osmolality 246 L, Calcium 9.6, Total Bilirubin 2.0 H, AST 33, ALT 31, Alkaline Phosphatase 104, Troponin I 0.02, Total Protein 6.3, Albumin 3.8, Globulin 2.5, Albumin/Globulin Ratio 1.5, TSH 0.998, Free T4 1.72, CBC w Diff NO MAN DIFF REQ, RBC 4.41, MCV 88.7, MCH 30.5, MCHC 34.4, RDW 14.2, MPV 6.9 L, Gran % 80.9 H, Lymphocytes % 10.8 L, Monocytes % 8.0, Eosinophils % 0.1, Basophils % 0.2, Absolute Granulocytes 6.9 H, Absolute Lymphocytes 0.9 L, Absolute Monocytes 0.7 H, Absolute Eosinophils 0, Absolute Basophils 0, Urine Osmolality 113 L, Ur Random Creatinine 70.7, Ur Random Sodium < 5 L, Ur Random Potassium 20.7, Fraction Sodium Excret 0.1 Microbiology 10/09 2309 URINE ROUT: Urine Culture - RECD 10/09 2309 UPPER RESP: Surveillance Culture - RECD 10/09 2309 GI: Surveillance Culture - RECD Initial ED EKG: NSR, nonspecific ST T wave chg Prior EKG: unchanged Hand-Off Endorsed To: Suzan EVANS,Chris Vizcaino Endorsed Time: 1922 Pending: labs (Dino Jeffries MD) Departure Departure Disposition: STILL A PATIENT Condition: Stable Referrals: Manuel EVANS,Ermias Dave (PCP/Family) Departure Forms: Customer Survey General Discharge Information (Dino Jeffries MD) Departure Clinical Impression Primary Impression: Dementia Secondary Impressions: Hyponatremia Admission Note Spoke With: Stanford Gary MD Documentation of Exam: Documentation of any treatments & extenuating circumstances including Concerns Regarding Discharge (functional status, medication knowledge or non-compliance, living conditions, etc.) that warrant an admission rather than observation: pt with dementia with worsening confusion/mental status change, most likely due to sodium 120... merits icu level care for close monitoring. (Suzan EVANS,Chris Vizcaino) Critical Care Note Critical Care Note Critical Care Time: non-applicable (Mervin EVANS,Dino Acosta) Critical Care Note Critical Care Time: 30-74 min (Suzan EVANS,Chris Vizcaino)
[2017-10-09 18:55] LABS: ABSOLUTE BASOPHIL COUNT 0 /CUMM (0.0-0.2); ABSOLUTE EOSINOPHIL COUNT 0 /CUMM (0.0-0.7); ABSOLUTE GRANULOCYTE CT 6.9 /CUMM (1.4-6.5); ABSOLUTE LYMPH COUNT 0.9 /CUMM (1.2-3.4); ABSOLUTE MONOCYTE COUNT 0.7 /CUMM (0.10-0.60); BASOPHIL % 0.2 % (0.0-2.0); EOSINOPHIL % 0.1 % (0-5); GRANULOCYTE % 80.9 % (42.2-75.2); HEMATOCRIT 39.1 % (37-47); MEAN CORPUSCULAR HGB 30.5 PG (27.0-31.0); MEAN CORPUSCULAR HGB CONC 34.4 G/DL (33.0-37.0); MEAN CORPUSCULAR VOLUME 88.7 FL (81.0-99.0); MEAN PLATELET VOLUME 6.9 FL (7.4-10.4); PLATELET COUNT 399 /CUMM (130-400); RBC DISTRIBUTION WIDTH 14.2 % (11.5-14.5); RED BLOOD CELL CT 4.41 /CUMM (4.20-5.40); WHITE BLOOD CELL COUNT 8.6 /CUMM (4.8-10.8)
--- NOTE | 2017-10-09 19:32 | RADIOLOGY REPORT ---
EXAMINATION: XR PORTABLE CHEST CLINICAL INFORMATION: Change in mental status COMPARISON: 05/17/2017 TECHNIQUE: Portable frontal view of the chest was obtained. FINDINGS: Heart size is normal. Mediastinal contours are normal. Lungs are clear without consolidation, effusion or pneumothorax. Visualized osseous structures appear intact. IMPRESSION: No acute cardiopulmonary process
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
[2017-10-09] MEDS ORDERED: LEVOTHYROXINE25 MCG PO (23:02)
[2017-10-10] VITALS: BP 160/60
--- NOTE | 2017-10-10 00:08 | History & Physical ---
General Information and HPI Source of Information: family, old records Exam Limitations: unable to give history, clinical condition Allergies/Medications Allergies: Coded Allergies: Penicillins (Severe, CONVULSIONS 12/29/15) STATINS ("REAL BAD BODY ACHES, CAN'T MOVE" 12/29/15) Home Med list Amlodipine Besylate 5 MG TABLET 5 MG PO DAILY HYPERTENSION Citalopram Hydrobromide (Citalopram HBr) 10 MG TABLET 1 TAB PO QAM MENTAL HEALTH (Reported) Ergocalciferol (Vitamin D2) (Vitamin D2) 50,000 UNIT CAPSULE 1 CAP PO QFRI SUPPLEMENT (Reported) Furosemide (Lasix) 20 MG TABLET 1 TAB PO DAILY PRN pedal edema Levothyroxine Sodium 25 MCG TABLET 1.5 TAB PO DAILY HYPOTHYROIDISM (Reported) Losartan Potassium 50 MG TABLET 50 MG PO DAILY HYPERTENSION Memantine HCl (Namenda) 10 MG TABLET 1 TAB PO BID DEMENTIA (Reported) Pantoprazole Sodium (Protonix) 40 MG TABLET.DR 1 TAB PO AT BEDTIME ACID REFLUX (Reported) Pravastatin Sodium 40 MG TABLET 1 TAB PO DAILY HLD (Reported) Risperidone (Risperdal) 1 MG TABLET 0.5 MG PO QAM MENTAL HEALTH (Reported) Past History Travel History Traveled to [place] past 21 day No Medical History Neurological: Alzheimer's disease EENT: NONE Cardiovascular: hyperlipidemia Respiratory: NONE Gastrointestinal: GERD Hepatic: NONE Renal: NONE Musculoskeletal: osteoarthritis, ?FX NOSE Psychiatric: NONE Endocrine: hypothyroidism Blood Disorders: NONE Cancer(s): "3 BRAIN TUMORS" 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 Ambulation: independent IADLs Needs Assist: shopping, housework, finances, food prep, transportation, medication admin. Core Measures/Misc (02/06) Cerebrovascular Accident CVA/TIA Diagnosis: No
--- NOTE | 2017-10-10 02:51 | Admission Certification ---
Admission Certification Certification Statement - As attending physician, I certify that at the time of - admission, based on clinical presentation, severity of - symptoms, need for further diagnostic testing and - therapeutic interventions, and risk of adverse outcomes - without in-hospital treatment, in my clinical assessment, - this patient requires an acute hospital stay for a minimum - of two nights or longer. I have also considered psychsocial - factors such as support system, advanced age, financial - issues, cognitive issues, and failed out-patient treatments, - past re-admission history, safety of patient, and lack of - compliance as applicable. Specific rationale supporting this admission is: hyponatremia, confusion
[2017-10-10 04:00] VITALS: BP 164/75
[2017-10-10 06:15] LABS: ABSOLUTE BASOPHIL COUNT 0 /CUMM (0.0-0.2); ABSOLUTE EOSINOPHIL COUNT 0 /CUMM (0.0-0.7); ABSOLUTE LYMPH COUNT 0.9 /CUMM (1.2-3.4); ABSOLUTE MONOCYTE COUNT 0.6 /CUMM (0.10-0.60); BASOPHIL % 0.2 % (0.0-2.0); EOSINOPHIL % 0.6 % (0-5); GRANULOCYTE % 72.4 % (42.2-75.2); HEMATOCRIT 38.3 % (37-47); MEAN CORPUSCULAR HGB 30.6 PG (27.0-31.0); MEAN CORPUSCULAR HGB CONC 34.3 G/DL (33.0-37.0); MEAN CORPUSCULAR VOLUME 89.3 FL (81.0-99.0); MEAN PLATELET VOLUME 6.6 FL (7.4-10.4); PLATELET COUNT 362 /CUMM (130-400); RBC DISTRIBUTION WIDTH 14.2 % (11.5-14.5); RED BLOOD CELL CT 4.29 /CUMM (4.20-5.40); WHITE BLOOD CELL COUNT 5.5 /CUMM (4.8-10.8)
--- NOTE | 2017-10-10 07:52 | PN- Housestaff ---
Subjective Subjective: Seen at bedside Alert oriented X 3. eating breakfast. Review of Systems Constitutional: Reports: see HPI. Objective Last 24 Hrs of Vital Signs/I&O Vital Signs Date Time Temp Pulse Resp B/P B/P Pulse O2 O2 Flow FiO2 Mean Ox Delivery Rate 10/10 0400 99.1 78 16 164/75 10/10 0400 98 Nasal 1.0L Cannula 10/10 0000 98.4 78 18 160/60 10/10 0000 98.4 78 18 160/60 99 Nasal 1.0L Cannula 10/09 2300 99 Nasal 1.0L Cannula 10/09 2026 97.2 72 18 175/79 100 Room Air 10/09 1805 97.1 78 18 190/77 98 Room Air Intake & Output 10/10 0800 10/10 0000 10/09 1600 Intake Total 20 0 Output Total 2480 Balance -2460 0 Intake, Oral 20 0 Output, Urine 2480 Patient 84.2 kg Weight Weight Bed scale Measurement Method Physical Exam General Appearance: Alert, Oriented X3, Cooperative, No Acute Distress Physical Exam General Appearance: Alert, Oriented X3, Cooperative, No Acute Distress
[2017-10-10 08:00] VITALS: BP 140/70
--- NOTE | 2017-10-10 09:12 | PN- Resident CRCU ---
Subjective HPI/CRCU Issues: 1. Hypotonic Hyponatremia - overcorrected now on D5W 2. Dementia 3. Schwannoma 24 Hour Events: Patient was confused at the time of admission which was apparently secondary to low sodium levels. Sh e
--- NOTE | 2017-10-10 12:30 | Cons- Nephrology ---
General Information and HPI Consulting Request Date of Consult: 10/10/17 Requested By: Stanford Gary MD Reason for Consult: Hyponatremia Source of Information: patient, old records Exam Limitations: dementia, poor historian History of Present Illness: I have been asked to see this 77-year-old woman with a background of Alzheimer's dementia because of hyponatremia. She was admitted yesterday with worsening confusion after having been found laying down in her backyard. Serum sodium was found to be 120 but has come up to 129 today after treatment with half normal saline and oral fluid restriction. Her mental status has apparently returned to baseline. It should be noted that she apparently tends to drink a large amount of fluid including an unknown quantity of beer, and does not eat very much. In reviewing previous serum sodium values, in July 2016 she did have one low value of 130 but otherwise her serum sodium levels have been within normal limits. On the current admission, serum creatinine has gone from 1.1-0.9, there has been no hyperglycemia, thyroid and cortisol levels within normal limits, urine sodium less than 5 and urine osmolality only 113. Finally, it should be noted that she is on 2 medications that can occasionally be associated with hyponatremia, namely citalopram and Risperdal. Past medical history is significant for hypertension, hyperlipidemia, intracranial tumors including a schwannoma and meningioma, Alzheimer's/vascular dementia, GERD, osteoarthritis and a previous diagnosis of hypothyroidism. Medications: See below Allergies: Penicillins, statins Family history (obtained from chart) shows that her father had a brain aneurysm and her sister stroke. No known family history of kidney or endocrine disorders. Social history: She is a former smoker made drink up to 4 beers per night with no history of illicit drug use. She requires assistance and many of her activities of daily living. Allergies/Medications Allergies: Coded Allergies: Penicillins (Severe, CONVULSIONS 12/29/15) STATINS ("REAL BAD BODY ACHES, CAN'T MOVE" 12/29/15) Home Med List: Amlodipine Besylate 5 MG TABLET 5 MG PO DAILY HYPERTENSION Citalopram Hydrobromide (Citalopram HBr) 10 MG TABLET 1 TAB PO QAM MENTAL HEALTH (Reported) Ergocalciferol (Vitamin D2) (Vitamin D2) 50,000 UNIT CAPSULE 1 CAP PO QFRI SUPPLEMENT (Reported) Furosemide (Lasix) 20 MG TABLET 1 TAB PO DAILY PRN pedal edema Levothyroxine Sodium 25 MCG TABLET 1.5 TAB PO DAILY HYPOTHYROIDISM (Reported) Losartan Potassium 50 MG TABLET 50 MG PO DAILY HYPERTENSION Memantine HCl (Namenda) 10 MG TABLET 1 TAB PO BID DEMENTIA (Reported) Pantoprazole Sodium (Protonix) 40 MG TABLET.DR 1 TAB PO AT BEDTIME ACID REFLUX (Reported) Pravastatin Sodium 40 MG TABLET 1 TAB PO DAILY HLD (Reported) Risperidone (Risperdal) 1 MG TABLET 0.5 MG PO QAM MENTAL HEALTH (Reported) Review of Systems Review of Systems: Constitutional: Denies: see HPI. Cardiovascular: Denies: no symptoms. Respiratory: Denies: no symptoms. GI: Denies: no symptoms. Genitourinary: Denies: no symptoms. Musculoskeletal: Denies: no symptoms. Skin: Denies: no symptoms. Neurological/Psychological: Reports: cognitive dysfunction. Hematologic/Endocrine: Denies: no symptoms. 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 Home Services at Home: None Smoking Status: Former Smoker ETOH Use: occasional use, drink 4 beers/night Illicit Drug Use: denies illicit drug use Functional Ability ADLs Independent: toileting. Ambulation: independent IADLs Needs Assist: shopping, housework, finances, food prep, transportation, medication admin. Exam & Diagnostic Data Vital Signs and I&O Vital Signs Date Time Temp Pulse Resp B/P B/P Pulse O2 O2 Flow FiO2 Mean Ox Delivery Rate 10/10 0800 98.1 68 20 140/70 97 Room Air 10/10 0400 99.1 78 16 164/75 10/10 0400 98 Nasal 1.0L Cannula 10/10 0000 98.4 78 18 160/60 10/10 0000 98.4 78 18 160/60 99 Nasal 1.0L Cannula 10/09 2300 99 Nasal 1.0L Cannula 10/09 2026 97.2 72 18 175/79 100 Room Air 10/09 1804 97.1 78 18 190/77 98 Room Air Intake & Output 10/10 040 Intake Total 20 0 Output Total 2480 Balance -2460 0 Intake, Oral 20 0 Output, Urine 2480 Patient 186 lb Weight Weight Bed scale Measurement Method Physical Exam: General: Well-developed elderly white female in NAD Skin: No rash or jaundice HEENT: Conjunctivae pink, sclerae anicteric, mucous membranes moist Neck: Without masses or thyromegaly, no supraclavicular or cervical adenopathy Chest: Clear to P&A Heart: Regular rate and rhythm without S3 or rub Abdomen: Soft and nontender without palpable masses or organomegaly Extremities: Without cyanosis or edema Neuro: Awake and alert, pleasantly confused, no focal findings, no asterixis or myoclonus Assessment/Plan Assessment/Recommendations Assessment: 77-year-old woman with a background of Alzheimer's/vascular dementia who is now admitted with increased confusion in the setting of severe hyponatremia (120) which continues to improve simply with administration of IV sodium-containing solutions and oral fluid restriction. The history and laboratory findings are most consistent with excessive water intake in the setting of chronic poor solute intake - a "tea and toast" scenario. Appropriate treatment should be directed at managing fluid intake while increasing protein and sodium ingestion. Recommendations: 1. Chronically limited by mouth fluid intake to 1200 mL per day 2. Sodium chloride tablets 1 g by mouth twice a day 3. Dietitian consultation in an effort to improve caloric, especially protein, intake
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
[2017-10-10 16:00] VITALS: BP 110/62
[2017-10-10 21:54] VITALS: BP 144/80
[2017-10-11 07:14] VITALS: BP 128/76
--- NOTE | 2017-10-11 07:22 | PN- Housestaff ---
Subjective Follow-up For: Hyponatremia Subjective: Patient seen and examined. She is not oriented to time place or person. She is not in any acute distress. Currently in pos[place]. Patient pulled out her IV line overnight. Currently not taking any IV medication. No acute distress Review of Systems Constitutional: Reports: see HPI. Objective Last 24 Hrs of Vital Signs/I&O Vital Signs Date Time Temp Pulse Resp B/P B/P Pulse O2 O2 Flow FiO2 Mean Ox Delivery Rate 10/11 1045 70 128/76 10/11 1044 70 128/76 10/11 0714 97.2 70 20 128/76 96 Room Air 10/10 2154 97.8 61 20 144/80 97 10/10 1600 97.4 77 20 110/62 97 Room Air Intake & Output 10/11 1600 10/11 0800 10/11 0000 Intake Total 300 0 Output Total 200 850 Balance 100 -850 Intake, Oral 300 0 Output, Urine 200 850 Physical Exam General Appearance: Alert, No Acute Distress Cardiovascular: Normal S1, Normal S2 Lungs: Clear to Auscultation, Normal Air Movement Abdomen: Normal Bowel Sounds, Soft Neurological: Normal Speech Extremities: small open woumd on R leg Current Medications: Current Medications Sig/Dennise Start time Last Medication Dose Route Stop Time Status Admin Amlodipine Besylate 5 MG DAILY 10/10 09 AC 10/11 PO 1045 Citalopram 10 MG QAM 10/10 09 AC 10/11 Hydrobromide PO 1044 Dextrose/Water 1,000 ML ONCE ONE 10/10 0545 DC 10/10 IV 10/11 0144 0638 Enoxaparin Sodium 40 MG DAILY 10/10 09 AC 10/11 SC 1046 Levothyroxine Sodium 0.0375 MG DAILY AC 10/10 07 AC 10/11 PO 0647 Losartan Potassium 50 MG DAILY 10/10 09 AC 10/11 PO 1044 Memantine 10 MG BID 10/09 2303 AC 10/11 PO 1044 Omeprazole 40 MG DAILY AC 10/10 07 AC 10/11 PO 0647 Pravastatin Sodium 40 MG 1700 10/10 1700 AC 10/10 PO 1649 Risperidone 0.5 MG QAM 10/10 0900 AC 10/11 PO 1045 Sodium Chloride 1,000 MG BID 10/10 1310 DC 10/10 PO 1649 Last 24 Hrs of Lab/Jimmy Results Last 24 Hrs of Labs/Mics: Laboratory Tests 10/11/17 0705: Anion Gap 8, Estimated GFR > 60, BUN/Creatinine Ratio 8.9, CBC w Diff NO MAN DIFF REQ, RBC 4.28, MCV 89.7, MCH 30.5, MCHC 34.0, RDW 14.3, MPV 7.0 L, Gran % 70.8, Lymphocytes % 19.8 L, Monocytes % 8.1, Eosinophils % 0.9, Basophils % 0.4 , Absolute Granulocytes 3.6, Absolute Lymphocytes 1.0 L, Absolute Monocytes 0.4 , Absolute Eosinophils 0, Absolute Basophils 0 10/11/17 0209: Anion Gap 6, Estimated GFR > 60, BUN/Creatinine Ratio 8.8 10/10/172017: Anion Gap 8, Estimated GFR > 60, BUN/Creatinine Ratio 8.8 10/10/17 1830: Assessment/Plan Assessment: The pt is 77-year-old female with PMH of Schwannoma/meningioma, dementia, tremors, Hashimotos thyroiditis with hypothyroidism presented to hospital after found wandering off in her own backyard and then found on ground. She was initially admitted to ICU and later transferred to general medicine floor. She is being treated and evaluated for following conditions #Acute on chronic Hyponatremia She was confused, not oriented, did not endorse any complaints on admission. History was provided by patient's daughter who stated that patient is getting progressively worse since last few weeks, decreased appetite, hiccups, excessive water drinking and getting agitated at times. At admission examination unremarkable but she was found to have sodium of 120. This is decreased from 134, on 09/22/2017. Patient was on tea and toast dietand now had polydipsia. Additionally on SSRI, drinks 4 beers/day. Her Urine Osm ~100 (113), Serum Osm 246 with low Na on urine lytes. Patient has been transferred from ICU overnight -NaCl tablets - 2 tabs a day -1200ml fluid restriction -Consider regular diet with ensure supplementation -Nephro on board - appreciate recs. #Confusion - secondary to Delirium with underlying dementia and hyponatremia Possibly attributable to delirium in the setting of low Na with a dementia background. Appears better and at her baseline. -Continue memantine 10mg BID and risperidone 0.5mg daily -Call family members to find the patient's baseline status -PT evaluation -She might require placement in a dementia unit because of risk for wandering #Chronic medical conditions HTN/HLD, GERD,Zion's thyroiditis with hypothyroidism mental health: Continue pravastatin 40mg, Losartan 50mg daily, omeprazole, levothyroxine 37 MCG , citalopram 10 mg schwannoma and meningioma: Stable #Currently heart healthy diet, consider changing to regular diet/Lovenox/FC Problem List: 1. Hyponatremia Pain Ratin Pain Location: prn Pain Goal: Pain 4 or less Pain Plan: prn Tomorrow's Labs & Rationales: none Pain Goal: Pain 4 or less Pain Plan: prn Tomorrow's Labs & Rationales: none
[2017-10-11 08:51] LABS: ABSOLUTE BASOPHIL COUNT 0 /CUMM (0.0-0.2); ABSOLUTE EOSINOPHIL COUNT 0 /CUMM (0.0-0.7); ABSOLUTE GRANULOCYTE CT 3.6 /CUMM (1.4-6.5); ABSOLUTE MONOCYTE COUNT 0.4 /CUMM (0.10-0.60); BASOPHIL % 0.4 % (0.0-2.0); EOSINOPHIL % 0.9 % (0-5); GRANULOCYTE % 70.8 % (42.2-75.2); HEMATOCRIT 38.4 % (37-47); MEAN CORPUSCULAR HGB 30.5 PG (27.0-31.0); MEAN CORPUSCULAR VOLUME 89.7 FL (81.0-99.0); PLATELET COUNT 343 /CUMM (130-400); RBC DISTRIBUTION WIDTH 14.3 % (11.5-14.5); RED BLOOD CELL CT 4.28 /CUMM (4.20-5.40)
--- NOTE | 2017-10-11 10:47 | PN- Att Addend ---
Attending Addendum Attending Brief Note Patient seen and examined. Plan of care discussed with the medical team and the patient. Available lab work and radiology test reports were reviewed. Patient is confused and disoriented. She thinks that she is in [place]. She otherwise appears without any distress and is pleasant and conversant. Exam: General: Patient awake alert but disoriented without any distress CVS: S1 plus S2 without any murmur or gallops Chest: Few scattered crepitation without any wheeze. There is no respiratory distress. Abdomen: Soft non-tender, bowel sound present, no guarding or rebound SALES TRADER: Awake alert disoriented without any focal neuro deficit and follows commands appropriately Extremities: No edema; no clubbing or cyanosis noted Assessment * Hyponatremia-resolved * Dementia * Delirium superimposed on dementia, probably due to hyponatremia * History of hypertension * History of hypothyroidism Plan * We need family input to assess patient's baseline mental status * Continue supportive care * Patient may need placement in a dementia unit because she is at risk for wandering Current Medications Sig/Dennise Start time Last Medication Dose Route Stop Time Status Admin Amlodipine Besylate 5 MG DAILY 10/10 09 AC 10/10 PO 0804 Citalopram 10 MG QAM 10/10 09 AC 10/10 Hydrobromide PO 0804 Dextrose/Water 1,000 ML ONCE ONE 10/10 0545 DC 10/10 IV 10/11 0144 0638 Enoxaparin Sodium 40 MG DAILY 10/10 09 AC 10/10 SC 0805 Levothyroxine Sodium 0.0375 MG DAILY AC 10/10 0700 AC 10/11 PO 0647 Losartan Potassium 50 MG DAILY 10/10 09 AC 10/10 PO 0804 Memantine 10 MG BID 10/09 2303 AC 10/10 PO 2033 Omeprazole 40 MG DAILY AC 10/10 0700 AC 10/11 PO 0647 Pravastatin Sodium 40 MG 1700 10/10 1700 AC 10/10 PO 1649 Risperidone 0.5 MG QAM 10/10 0900 AC 10/10 PO 0804 Sodium Chloride 1,000 MG BID 10/10 1310 DC 10/10 PO 1649 Laboratory Tests 10/11/17 0705: Anion Gap 8, Estimated GFR > 60, BUN/Creatinine Ratio 8.9, CBC w Diff NO MAN DIFF REQ, RBC 4.28, MCV 89.7, MCH 30.5, MCHC 34.0, RDW 14.3, MPV 7.0 L, Gran % 70.8, Lymphocytes % 19.8 L, Monocytes % 8.1, Eosinophils % 0.9, Basophils % 0.4 , Absolute Granulocytes 3.6, Absolute Lymphocytes 1.0 L, Absolute Monocytes 0.4 , Absolute Eosinophils 0, Absolute Basophils 0 10/11/17 0209: Anion Gap 6, Estimated GFR > 60, BUN/Creatinine Ratio 8.8 10/10/17 2018: Anion Gap 8, Estimated GFR > 60, BUN/Creatinine Ratio 8.8 10/10/17 1830: 10/10/17 0600: Anion Gap 9, Estimated GFR > 60, Glucose 96, Calcium 9.1, Phosphorus 3.1, Magnesium 1.9, Total Bilirubin 1.0, AST 27, ALT 28, Albumin 3.4 L, Cortisol AM Sample 12.6, CBC w Diff NO MAN DIFF REQ, RBC 4.29, MCV 89.3, MCH 30.6, MCHC 34.3 , RDW 14.2, MPV 6.6 L, Gran % 72.4, Lymphocytes % 16.6 L, Monocytes % 10.2 H, Eosinophils % 0.6, Basophils % 0.2, Absolute Granulocytes 4.0, Absolute Lymphocytes 0.9 L, Absolute Monocytes 0.6, Absolute Eosinophils 0, Absolute Basophils 0 10/10/17 0315: Anion Gap 10, Estimated GFR > 60, BUN/Creatinine Ratio 10.0 10/09/17 2315: Anion Gap 11, Estimated GFR 53 L, BUN/Creatinine Ratio 8.0 10/09/17 184: Urine Color YEL, Urine Clarity CLEAR, Urine pH 6.0, Ur Specific [place] 1.010, Urine Protein NEG, Urine Ketones 15 H, Urine Nitrite NEG, Urine Bilirubin NEG, Urine Urobilinogen 0.2, Ur Leukocyte Esterase NEG, Ur Microscopic EXAM NOT REQUIRED, Urine Hemoglobin NEG, Urine Glucose NEG 10/09/17 184: Anion Gap 14, Estimated GFR 48 L, BUN/Creatinine Ratio 8.2, Glucose 85, Serum Osmolality 246 L, Calcium 9.6, Total Bilirubin 2.0 H, AST 33, ALT 31, Alkaline Phosphatase 104, Troponin I 0.02, Total Protein 6.3, Albumin 3.8, Globulin 2.5, Albumin/Globulin Ratio 1.5, TSH 0.998, Free T4 1.72, CBC w Diff NO MAN DIFF REQ, RBC 4.41, MCV 88.7, MCH 30.5, MCHC 34.4, RDW 14.2, MPV 6.9 L, Gran % 80.9 H, Lymphocytes % 10.8 L, Monocytes % 8.0, Eosinophils % 0.1, Basophils % 0.2, Absolute Granulocytes 6.9 H, Absolute Lymphocytes 0.9 L, Absolute Monocytes 0.7 H, Absolute Eosinophils 0, Absolute Basophils 0, Urine Osmolality 113 L, Ur Random Creatinine 70.7, Ur Random Sodium < 5 L, Ur Random Potassium 20.7, Fraction Sodium Excret 0.1 Microbiology 10/09 2309 URINE ROUT: Urine Culture - RES 10/09 2309 UPPER RESP: Surveillance Culture - COMP 10/09 2309 GI: Surveillance Culture - COMP Vital Signs Date Time Temp Pulse Resp B/P B/P Pulse O2 O2 Flow FiO2 Mean Ox Delivery Rate 10/11 0714 97.2 70 20 128/76 96 Room Air 10/10 2154 97.8 61 20 144/80 97 10/10 1600 97.4 77 20 110/62 97 Room Air Intake & Output 10/11 1600 10/11 0800 10/11 0000 Intake Total 300 0 Output Total 200 850 Balance 100 -850 Intake, Oral 300 0 Output, Urine 200 850
[2017-10-11 13:41] VITALS: BP 140/80
--- NOTE | 2017-10-11 14:55 | PN- Nephrology ---
Assessment/Plan Nephrology Assessment: 1. Hyponatremia (improved) secondary to excessive fluid intake and poor intake of protein/solute 2. Dementia Suggestion: 1. Continue daily oral fluid limit of 1200 cc 2. Continue sodium chloride tablets 1 g p.o. twice daily 3. Begin furosemide 20 mg p.o. daily Subjective Subjective: Patient remains pleasantly confused with no complaints. Serum sodium seems to have stabilized in the low 130s. Renal function remains within normal limits. Objective Vital Signs and I&Os Vital Signs Date Time Temp Pulse Resp B/P B/P Pulse O2 O2 Flow FiO2 Mean Ox Delivery Rate 10/11 1341 97.9 60 20 140/80 97 Room Air 10/11 1045 70 128/76 10/11 1044 70 128/76 10/11 0714 97.2 70 20 128/76 96 Room Air 10/10 2154 97.8 61 20 144/80 97 10/10 1600 97.4 77 20 110/62 97 Room Air Intake & Output 10/11 1600 10/11 0400 10/10 1600 10/10 0400 10/09 1600 10/09 0400 Intake Total 300 0 820 0 Output Total 097 666 3442 Balance 100 -850 -2160 0 Intake, IV 400 Intake, Oral 300 0 420 0 Output, Urine 973 230 9722 Patient 186 lb 186 lb Weight Weight Bed scale Measurement Method Physical Exam: General: Well-developed elderly white female in NAD Skin: No rash or jaundice HEENT: Conjunctivae pink, sclerae anicteric, mucous membranes moist Neck: Without masses or thyromegaly, no supraclavicular or cervical adenopathy Chest: Clear to P&A Heart: Regular rate and rhythm without S3 or rub Abdomen: Soft and nontender without palpable masses or organomegaly Extremities: Without cyanosis or edema Neuro: Awake and alert, pleasantly confused, no focal findings, no asterixis or myoclonus Results Pertinent Lab Results: Laboratory Tests 10/11 10/11 10/10 10/10 0705 208 2017 183 Chemistry Sodium (137 - 145 mmol/L) 131 L 131 L 132 L 132 L Potassium (3.5 - 5.1 mmol/L) 3.6 3.5 3.6 Chloride (98 - 107 mmol/L) 96 L 97 L 97 L Carbon Dioxide (22 - 30 mmol/L) 27 28 26 Anion Gap (5 - 16) 8 6 8 BUN (7 - 17 mg/dL) 8 7 7 Creatinine (0.5 - 1.0 mg/dL) 0.9 0.8 0.8 Estimated GFR (>60 ml/min) > 60 > 60 > 60 BUN/Creatinine Ratio (7 - 25 %) 8.9 8.8 8.8 Hematology CBC w Diff NO MAN DIFF REQ WBC (4.8 - 10.8 /CUMM) 5.0 RBC (4.20 - 5.40 /CUMM) 4.28 Hgb (12.0 - 16.0 G/DL) 13.0 Hct (37 - 47 %) 38.4 MCV (81.0 - 99.0 FL) 89.7 MCH (27.0 - 31.0 PG) 30.5 MCHC (33.0 - 37.0 G/DL) 34.0 RDW (11.5 - 14.5 %) 14.3 Plt Count (130 - 400 /CUMM) 343 MPV (7.4 - 10.4 FL) 7.0 L Gran % (42.2 - 75.2 %) 70.8 Lymphocytes % (20.5 - 51.1 %) 19.8 L Monocytes % (1.7 - 9.3 %) 8.1 Eosinophils % (0 - 5 %) 0.9 Basophils % (0.0 - 2.0 %) 0.4 Absolute Granulocytes (1.4 - 6.5 /CUMM) 3.6 Absolute Lymphocytes (1.2 - 3.4 /CUMM) 1.0 L Absolute Monocytes (0.10 - 0.60 /CUMM) 0.4 Absolute Eosinophils (0.0 - 0.7 /CUMM) 0 Absolute Basophils (0.0 - 0.2 /CUMM) 0 10/10 10/10 10/09 0600 0315 2315 Chemistry Sodium (137 - 145 mmol/L) 129 L 128 L 125 L Potassium (3.5 - 5.1 mmol/L) 3.7 3.6 3.7 Chloride (98 - 107 mmol/L) 95 L 94 L 92 L Carbon Dioxide (22 - 30 mmol/L) 26 25 22 Anion Gap (5 - 16) 9 10 11 BUN (7 - 17 mg/dL) 8 9 8 Creatinine (0.5 - 1.0 mg/dL) 0.9 0.9 1.0 Estimated GFR (>60 ml/min) > 60 > 60 53 L BUN/Creatinine Ratio (7 - 25 %) 10.0 8.0 Glucose (65 - 99 mg/dL) 96 Calcium (8.4 - 10.2 mg/dL) 9.1 Phosphorus (2.5 - 4.5 mg/dL) 3.1 Magnesium (1.6 - 2.3 mg/dL) 1.9 Total Bilirubin (0.2 - 1.3 mg/dL) 1.0 AST (14 - 36 U/L) 27 ALT (9 - 52 U/L) 28 Albumin (3.5 - 5.0 g/dL) 3.4 L Cortisol AM Sample (4.46 - 22.7 ug/dL) 12.6 Hematology CBC w Diff NO MAN DIFF REQ WBC (4.8 - 10.8 /CUMM) 5.5 RBC (4.20 - 5.40 /CUMM) 4.29 Hgb (12.0 - 16.0 G/DL) 13.1 Hct (37 - 47 %) 38.3 MCV (81.0 - 99.0 FL) 89.3 MCH (27.0 - 31.0 PG) 30.6 MCHC (33.0 - 37.0 G/DL) 34.3 RDW (11.5 - 14.5 %) 14.2 Plt Count (130 - 400 /CUMM) 362 MPV (7.4 - 10.4 FL) 6.6 L Gran % (42.2 - 75.2 %) 72.4 Lymphocytes % (20.5 - 51.1 %) 16.6 L Monocytes % (1.7 - 9.3 %) 10.2 H Eosinophils % (0 - 5 %) 0.6 Basophils % (0.0 - 2.0 %) 0.2 Absolute Granulocytes (1.4 - 6.5 /CUMM) 4.0 Absolute Lymphocytes (1.2 - 3.4 /CUMM) 0.9 L Absolute Monocytes (0.10 - 0.60 /CUMM) 0.6 Absolute Eosinophils (0.0 - 0.7 /CUMM) 0 Absolute Basophils (0.0 - 0.2 /CUMM) 0 10/09 10/09 9900 6066 Chemistry Sodium (137 - 145 mmol/L) 120 L Potassium (3.5 - 5.1 mmol/L) 4.2 Chloride (98 - 107 mmol/L) 85 L Carbon Dioxide (22 - 30 mmol/L) 21 L Anion Gap (5 - 16) 14 BUN (7 - 17 mg/dL) 9 Creatinine (0.5 - 1.0 mg/dL) 1.1 H Estimated GFR (>60 ml/min) 48 L BUN/Creatinine Ratio (7 - 25 %) 8.2 Glucose (65 - 99 mg/dL) 85 Serum Osmolality (285 - 295 MOSM/KG) 246 L Calcium (8.4 - 10.2 mg/dL) 9.6 Total Bilirubin (0.2 - 1.3 mg/dL) 2.0 H AST (14 - 36 U/L) 33 ALT (9 - 52 U/L) 31 Alkaline Phosphatase (<127 U/L) 104 Troponin I (< 0.11 ng/ml) 0.02 Total Protein (6.3 - 8.2 g/dL) 6.3 Albumin (3.5 - 5.0 g/dL) 3.8 Globulin (1.9 - 4.2 gm/dL) 2.5 Albumin/Globulin Ratio (1.1 - 2.2 %) 1.5 TSH (0.270 - 4.200 uIU/mL) 0.998 Free T4 (0.78 - 2.44 ng/dL) 1.72 Hematology CBC w Diff NO MAN DIFF REQ WBC (4.8 - 10.8 /CUMM) 8.6 RBC (4.20 - 5.40 /CUMM) 4.41 Hgb (12.0 - 16.0 G/DL) 13.4 Hct (37 - 47 %) 39.1 MCV (81.0 - 99.0 FL) 88.7 MCH (27.0 - 31.0 PG) 30.5 MCHC (33.0 - 37.0 G/DL) 34.4 RDW (11.5 - 14.5 %) 14.2 Plt Count (130 - 400 /CUMM) 399 MPV (7.4 - 10.4 FL) 6.9 L Gran % (42.2 - 75.2 %) 80.9 H Lymphocytes % (20.5 - 51.1 %) 10.8 L Monocytes % (1.7 - 9.3 %) 8.0 Eosinophils % (0 - 5 %) 0.1 Basophils % (0.0 - 2.0 %) 0.2 Absolute Granulocytes (1.4 - 6.5 /CUMM) 6.9 H Absolute Lymphocytes (1.2 - 3.4 /CUMM) 0.9 L Absolute Monocytes (0.10 - 0.60 /CUMM) 0.7 H Absolute Eosinophils (0.0 - 0.7 /CUMM) 0 Absolute Basophils (0.0 - 0.2 /CUMM) 0 Urines Urine Color (YEL,AMB,STR) YEL Urine Clarity (CLEAR) CLEAR Urine pH (5.0 - 8.0) 6.0 Ur Specific [place] (1.001 - 1.035) 1.010 Urine Protein (NEG,<30 MG/DL) NEG Urine Ketones (NEG) 15 H Urine Nitrite (NEG) NEG Urine Bilirubin (NEG) NEG Urine Urobilinogen (0.1 - 1.0 EU/dl) 0.2 Ur Leukocyte Esterase (NEG) NEG Ur Microscopic EXAM NOT REQUIRED Urine Hemoglobin (NEG) NEG Urine Osmolality (300 - 1000 MOSM/KG) 113 L Ur Random Creatinine (mg/dL) 70.7 Ur Random Sodium (30 - 90 mmol/L) < 5 L Ur Random Potassium (mmol/L) 20.7 Fraction Sodium Excret (<1% %) 0.1 Urine Glucose (N MG/DL) NEG
[2017-10-11 22:09] VITALS: BP 120/60
[2017-10-12 06:32] VITALS: BP 126/64
[2017-10-12 07:01] VITALS: BP 158/80
--- NOTE | 2017-10-12 07:17 | PN- Housestaff ---
Subjective Follow-up For: Hyponatremia Subjective: Patient seen and examined. Not oriented to time place and person. Currently present. Not in any acute distress. Does not offer any complaints. States that she feels great and would like to be discharged home. Review of Systems Constitutional: Reports: see HPI. EENTM: Reports: see HPI. Objective Last 24 Hrs of Vital Signs/I&O Vital Signs Date Time Temp Pulse Resp B/P B/P Pulse O2 O2 Flow FiO2 Mean Ox Delivery Rate 10/12 1427 97.6 69 18 110/60 97 10/12 1046 68 98/60 10/12 1046 68 98/60 10/12 0800 Room Air 10/12 0632 97.3 68 20 126/64 99 10/11 2209 95.9 74 20 120/60 97 Room Air Intake & Output 10/12 1600 10/12 0800 10/12 0000 Intake Total 1440 100 120 Output Total 1200 350 250 Balance 240 -250 -130 Intake, Oral 1440 100 120 Number 0 Bowel Movements Output, Urine 1200 350 250 Physical Exam General Appearance: Alert, Cooperative, No Acute Distress Cardiovascular: Normal S1, Normal S2 Lungs: Clear to Auscultation Abdomen: Normal Bowel Sounds Neurological: Normal Speech Current Medications: Current Medications Sig/Dennise Start time Last Medication Dose Route Stop Time Status Admin Amlodipine Besylate 5 MG DAILY 10/10 09 AC 10/12 PO 1046 Citalopram 10 MG QAM 10/10 09 DC 10/12 Hydrobromide PO 1046 Enoxaparin Sodium 40 MG DAILY 10/10 09 AC 10/12 SC 1047 Furosemide 20 MG DAILY 10/11 1513 AC 10/12 PO 1131 Levothyroxine Sodium 0.0375 MG DAILY AC 10/10 0700 AC 10/12 PO 0620 Losartan Potassium 50 MG DAILY 10/10 0900 AC 10/12 PO 1046 Memantine 10 MG BID 10/09 2303 AC 10/12 PO 1046 Omeprazole 40 MG DAILY AC 10/10 0700 AC 10/12 PO 0620 Ondansetron HCl 4 MG ONCE ONE 10/11 2044 DC 10/11 PO 10/11 Patient Medication 1 ED ONE ONE 10/12 1145 DC Teaching ED 10/12 1146 Patient Medication 1 ED ONE ONE 10/11 1700 DC Teaching ED 10/11 1701 Pravastatin Sodium 40 MG 1700 10/10 1700 AC 10/11 PO 1743 Ramelteon 8 MG ONCE ONE 10/11 2114 DC 10/11 PO 10/11 Risperidone 0.5 MG QAM 10/10 0900 AC 10/12 PO 1046 Sodium Chloride 1,000 MG TID 10/12 1400 AC 10/12 PO 1343 Sodium Chloride 1,000 MG BID 10/11 2100 DC 10/12 PO 1047 Last 24 Hrs of Lab/Jimmy Results Last 24 Hrs of Labs/Mics: Laboratory Tests 10/12/17 0636: Anion Gap 10, Estimated GFR > 60, BUN/Creatinine Ratio 7.8 Assessment/Plan Assessment: The pt is 77-year-old female with PMH of Schwannoma/meningioma, dementia, tremors, Hashimotos thyroiditis with hypothyroidism presented to hospital after found wandering off in her own backyard and then found on ground. She was initially admitted to ICU and later transferred to general medicine floor. She is being treated and evaluated for following conditions #Acute on chronic Hyponatremia She was confused, not oriented, did not endorse any complaints on admission. History was provided by patient's daughter who stated that patient is getting progressively worse since last few weeks, decreased appetite, hiccups, excessive water drinking and getting agitated at times. At admission examination unremarkable but she was found to have sodium of 120. This is decreased from 134, on 09/22/2017. Patient was on tea and toast dietand now had polydipsia. Additionally on SSRI, drinks 4 beers/day. Her Urine Osm ~100 (113), Serum Osm 246 with low Na on urine lytes. Patient has been transferred from ICU overnight -NaCl tablets - 3 tabs a day -1000ml fluid restriction -Regular diet with ensure supplementation -Nephro on board - appreciate recs. #Confusion - secondary to Delirium with underlying dementia and hyponatremia Possibly attributable to delirium in the setting of low Na with a dementia background. Appears better and at her baseline. -Continue memantine 10mg BID and risperidone 0.5mg daily -Patient started does not believe that this is patient's baseline she says that she is more talkative than usual -As per psychiatric recommendations we are going to discontinue Celexa -Regarding her wandering pt will need a GPS tracker. -Family will need to install locks on the doors that lock with a white from the inside or a sliding lock at the top of the doorframes. -Family needs counseling on keeping her safety an absolute priority or ultimately elderly protective services will have to be called. #Chronic medical conditions HTN/HLD, GERD,Izon's thyroiditis with hypothyroidism mental health: Continue pravastatin 40mg, Losartan 50mg daily, omeprazole, levothyroxine 37 MCG schwannoma and meningioma: Stable #Regular diet with 1000 ML fluid restriction/Lovenox/FC Problem List: 1. Hyponatremia Pain Ratin Pain Location: n/a Pain Goal: Pain 4 or less Pain Plan: prn Tomorrow's Labs & Rationales: bep
--- NOTE | 2017-10-12 11:42 | PN- Att Addend ---
Attending Addendum Attending Brief Note Patient seen and examined. Plan of care discussed with the medical team and the patient. Available lab work and radiology test reports were reviewed. Patient is confused and disoriented. She thinks that she is in [place]. She otherwise appears without any distress and is pleasant and conversant. She has a sitter at the bedside. She is currently in [place] ves. Exam: General: Patient awake alert but disoriented without any distress CVS: S1 plus S2 without any murmur or gallops Chest: Few scattered crepitation without any wheeze. There is no respiratory distress. Abdomen: Soft non-tender, bowel sound present, no guarding or rebound FIBER OPTIC ASSEMBLER: Awake alert disoriented without any focal neuro deficit and follows commands appropriately Extremities: No edema; no clubbing or cyanosis noted Assessment * Hyponatremia-resolved * Dementia * Delirium superimposed on dementia, probably due to hyponatremia; no other triggers are identified except the patient had used trazodone for 2 days before admission; family has reported the patient still more confused than her baseline * History of hypertension * History of hypothyroidism Plan * Continue supportive care * Frequent reorientation and greater involvement of family in her care * Patient may need placement in a dementia unit because she is at risk for wandering * Obtain psychiatric consult * If patient is able to eat and drink on her own I will discontinue IV fluids * Continue fluid restriction to 100 mL per day * Recheck sodium tomorrow Current Medications Sig/Dennise Start time Last Medication Dose Route Stop Time Status Admin Amlodipine Besylate 5 MG DAILY 10/10 899 AC 10/12 PO 1046 Citalopram 10 MG QAM 10/10 899 AC 10/12 Hydrobromide PO 1046 Enoxaparin Sodium 40 MG DAILY 10/10 09 AC 10/12 SC 1047 Furosemide 20 MG DAILY 10/11 1513 AC 10/12 PO 1131 Levothyroxine Sodium 0.0375 MG DAILY AC 10/10 07 AC 10/12 PO 0620 Losartan Potassium 50 MG DAILY 10/10 09 AC 10/12 PO 1046 Memantine 10 MG BID 10/09 2303 AC 10/12 PO 1046 Omeprazole 40 MG DAILY AC 10/10 07 AC 10/12 PO 0620 Ondansetron HCl 4 MG ONCE ONE 10/11 2044 DC 10/11 PO 10/11 Patient Medication 1 ED ONE ONE 10/12 1145 [facility] ED 10/12 1146 Patient Medication 1 ED ONE ONE 10/11 1700 [facility] ED 10/11 1701 Pravastatin Sodium 40 MG 1700 10/10 1700 10/11 PO 1743 Ramelteon 8 MG ONCE ONE 10/11 2114 DC 10/11 PO 10/11 Risperidone 0.5 MG QAM 10/10 0900 10/12 PO 1046 Sodium Chloride 1,000 MG BID 10/11 2100 10/12 PO 1047 Laboratory Tests 10/12/17 0636: Anion Gap 10, Estimated GFR > 60, BUN/Creatinine Ratio 7.8 10/11/17 0705: Anion Gap 8, Estimated GFR > 60, BUN/Creatinine Ratio 8.9, CBC w Diff NO MAN DIFF REQ, RBC 4.28, MCV 89.7, MCH 30.5, MCHC 34.0, RDW 14.3, MPV 7.0 L, Gran % 70.8, Lymphocytes % 19.8 L, Monocytes % 8.1, Eosinophils % 0.9, Basophils % 0.4 , Absolute Granulocytes 3.6, Absolute Lymphocytes 1.0 L, Absolute Monocytes 0.4 , Absolute Eosinophils 0, Absolute Basophils 0 10/11/17 0209: Anion Gap 6, Estimated GFR > 60, BUN/Creatinine Ratio 8.8 10/10/17 2018: Anion Gap 8, Estimated GFR > 60, BUN/Creatinine Ratio 8.8 10/10/17 1830: 10/10/17 0600: Anion Gap 9, Estimated GFR > 60, Glucose 96, Calcium 9.1, Phosphorus 3.1, Magnesium 1.9, Total Bilirubin 1.0, AST 27, ALT 28, Albumin 3.4 L, Cortisol AM Sample 12.6, CBC w Diff NO MAN DIFF REQ, RBC 4.29, MCV 89.3, MCH 30.6, MCHC 34.3 , RDW 14.2, MPV 6.6 L, Gran % 72.4, Lymphocytes % 16.6 L, Monocytes % 10.2 H, Eosinophils % 0.6, Basophils % 0.2, Absolute Granulocytes 4.0, Absolute Lymphocytes 0.9 L, Absolute Monocytes 0.6, Absolute Eosinophils 0, Absolute Basophils 0 10/10/17 0315: Anion Gap 10, Estimated GFR > 60, BUN/Creatinine Ratio 10.0 10/09/172314: Anion Gap 11, Estimated GFR 53 L, BUN/Creatinine Ratio 8.0 10/09/171848: Urine Color YEL, Urine Clarity CLEAR, Urine pH 6.0, Ur Specific [place] 1.010, Urine Protein NEG, Urine Ketones 15 H, Urine Nitrite NEG, Urine Bilirubin NEG, Urine Urobilinogen 0.2, Ur Leukocyte Esterase NEG, Ur Microscopic EXAM NOT REQUIRED, Urine Hemoglobin NEG, Urine Glucose NEG 10/09/171848: Anion Gap 14, Estimated GFR 48 L, BUN/Creatinine Ratio 8.2, Glucose 85, Serum Osmolality 246 L, Calcium 9.6, Total Bilirubin 2.0 H, AST 33, ALT 31, Alkaline Phosphatase 104, Troponin I 0.02, Total Protein 6.3, Albumin 3.8, Globulin 2.5, Albumin/Globulin Ratio 1.5, TSH 0.998, Free T4 1.72, CBC w Diff NO MAN DIFF REQ, RBC 4.41, MCV 88.7, MCH 30.5, MCHC 34.4, RDW 14.2, MPV 6.9 L, Gran % 80.9 H, Lymphocytes % 10.8 L, Monocytes % 8.0, Eosinophils % 0.1, Basophils % 0.2, Absolute Granulocytes 6.9 H, Absolute Lymphocytes 0.9 L, Absolute Monocytes 0.7 H, Absolute Eosinophils 0, Absolute Basophils 0, Urine Osmolality 113 L, Ur Random Creatinine 70.7, Ur Random Sodium < 5 L, Ur Random Potassium 20.7, Fraction Sodium Excret 0.1 Microbiology 10/09 2309 URINE ROUT: Urine Culture - RES 10/09 2309 UPPER RESP: Surveillance Culture - COMP 10/09 2309 GI: Surveillance Culture - COMP Vital Signs Date Time Temp Pulse Resp B/P B/P Pulse O2 O2 Flow FiO2 Mean Ox Delivery Rate 10/12 1046 68 98/60 10/12 1046 68 98/60 10/12 0632 97.3 68 20 126/64 99 10/11 2209 95.9 74 20 120/60 97 Room Air 10/11 1341 97.9 60 20 140/80 97 Room Air Intake & Output 10/12 1600 10/12 0800 10/12 0000 Intake Total 100 120 Output Total 350 250 Balance -250 -130 Intake, Oral 100 120 Number 0 Bowel Movements Output, Urine 350 250
--- NOTE | 2017-10-12 11:59 | Cons- Psychiatry ---
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 Pt's grandson thought she was sleeping and went to the gym and the pt apparently wandered outside. At the ED she was found to be hyponatremic to 120. Her hyponatremia has since resolved with fluid restriction. Pt's memory is severely impaired so most of exam is unobtainable. MSE: Pt is a an elderly female sitting in franko chair being assessed by nursing. She looks bright and cheerful. "Hi I'm Toki." She is pleasant on exam. Her speech is clear with normal rate and volume. Her thought process is linear. Her thought content does not seem to contain any delusions. She feels well is in no pain and feels things at home are going well. She does know she is at [facility]. She thinks she in [place]. She cannot remember her son's names and forgets she has a daughter. She does not know her grandson's name. She feels her spirits are good "I'm always happy! I'm a happy person!" She knows she drinks a lot of water. "Maybe I should cut down." No AH or VH. Her insight and judgment are poor 2/2 to memory loss. A/ Pt is a 77 y/o F with AD who presented with hyponatremia most likely due to polydipsia. Plan: -Pt will not need in [place] at this time. -Regarding her wandering pt will need a GPS tracker. -Family will need to install locks on the doors that lock with a white from the inside or a sliding lock at the top of the doorframes. -Family needs counseling on keeping her safety an absolute priority or ultimately elderly protective services will have to be called. -Regarding meds we need to stop the celexa. She will require monitoring by her prescriber for exacerbation of depression -I would leave the other medications the same as wandering is based on a visuospatial deficit and is not amenable to medications. Please call with any questions. Haja EVANS #[phone]
--- NOTE | 2017-10-12 12:30 | PN- Nephrology ---
Assessment/Plan Nephrology Assessment: 1. Hyponatremia (improved) secondary to excessive fluid and poor protein/solute intake 2. Dementia Suggestion: 1. Please restrict patient's oral fluids to 1000 mL per day 2. Increase sodium chloride tablets to 1g 3 times a day and continue daily low dose p.o. Lasix Subjective Subjective: Patient states that she is "feeling great". Serum sodium down to 128. Apparently, she has not been on a fluid restriction. Serum creatinine stable at 0.8-0.9. Objective Vital Signs and I&Os Vital Signs Date Time Temp Pulse Resp B/P B/P Pulse O2 O2 Flow FiO2 Mean Ox Delivery Rate 10/12 1046 68 98/60 10/12 1046 68 98/60 10/12 0632 97.3 68 20 126/64 99 10/11 2209 95.9 74 20 120/60 97 Room Air 10/11 1341 97.9 60 20 140/80 97 Room Air Intake & Output 10/12 1600 10/12 0400 10/11 1600 10/11 0400 10/10 1600 10/10 0400 Intake Total 586 740 6547 0 820 0 Output Total 350 250 039 060 0969 Balance -250 -130 2800 -850 -2160 0 Intake, IV 400 Intake, Oral 149 014 3023 0 420 0 Number 0 Bowel Movements Output, Urine 350 250 035 636 0786 Patient 186 lb 186 lb Weight Weight Bed scale Measurement Method Physical Exam: General: Well-developed elderly white female in NAD Skin: No rash or jaundice HEENT: Conjunctivae pink, sclerae anicteric, mucous membranes moist Neck: Without masses or thyromegaly, no supraclavicular or cervical adenopathy Chest: Clear on left, few rales at right base Heart: Regular rate and rhythm without S3 or rub Abdomen: Soft and nontender without palpable masses or organomegaly Extremities: Without cyanosis or edema Neuro: Awake and alert, pleasantly confused, no focal findings, no asterixis or myoclonus Results Pertinent Lab Results: Laboratory Tests 10/12 10/11 10/11 10/10 0636 0705 [id number] Chemistry Sodium (137 - 145 mmol/L) 128 L 131 L 131 L 132 L Potassium (3.5 - 5.1 mmol/L) 3.7 3.6 3.5 3.6 Chloride (98 - 107 mmol/L) 93 L 96 L 97 L 97 L Carbon Dioxide (22 - 30 mmol/L) 26 27 28 26 Anion Gap (5 - 16) 10 8 6 8 BUN (7 - 17 mg/dL) 7 8 7 7 Creatinine (0.5 - 1.0 mg/dL) 0.9 0.9 0.8 0.8 Estimated GFR (>60 ml/min) > 60 > 60 > 60 > 60 BUN/Creatinine Ratio (7 - 25 %) 7.8 8.9 8.8 8.8 Hematology CBC w Diff NO MAN DIFF REQ WBC (4.8 - 10.8 /CUMM) 5.0 RBC (4.20 - 5.40 /CUMM) 4.28 Hgb (12.0 - 16.0 G/DL) 13.0 Hct (37 - 47 %) 38.4 MCV (81.0 - 99.0 FL) 89.7 MCH (27.0 - 31.0 PG) 30.5 MCHC (33.0 - 37.0 G/DL) 34.0 RDW (11.5 - 14.5 %) 14.3 Plt Count (130 - 400 /CUMM) 343 MPV (7.4 - 10.4 FL) 7.0 L Gran % (42.2 - 75.2 %) 70.8 Lymphocytes % (20.5 - 51.1 %) 19.8 L Monocytes % (1.7 - 9.3 %) 8.1 Eosinophils % (0 - 5 %) 0.9 Basophils % (0.0 - 2.0 %) 0.4 Absolute Granulocytes (1.4 - 6.5 /CUMM) 3.6 Absolute Lymphocytes (1.2 - 3.4 /CUMM) 1.0 L Absolute Monocytes (0.10 - 0.60 /CUMM) 0.4 Absolute Eosinophils (0.0 - 0.7 /CUMM) 0 Absolute Basophils (0.0 - 0.2 /CUMM) 0 10/10 10/10 10/10 10/09 1830 0600 0315 2315 Chemistry Sodium (137 - 145 mmol/L) 132 L 129 L 128 L 125 L Potassium (3.5 - 5.1 mmol/L) 3.7 3.6 3.7 Chloride (98 - 107 mmol/L) 95 L 94 L 92 L Carbon Dioxide (22 - 30 mmol/L) 26 25 22 Anion Gap (5 - 16) 9 10 11 BUN (7 - 17 mg/dL) 8 9 8 Creatinine (0.5 - 1.0 mg/dL) 0.9 0.9 1.0 Estimated GFR (>60 ml/min) > 60 > 60 53 L BUN/Creatinine Ratio (7 - 25 %) 10.0 8.0 Glucose (65 - 99 mg/dL) 96 Calcium (8.4 - 10.2 mg/dL) 9.1 Phosphorus (2.5 - 4.5 mg/dL) 3.1 Magnesium (1.6 - 2.3 mg/dL) 1.9 Total Bilirubin (0.2 - 1.3 mg/dL) 1.0 AST (14 - 36 U/L) 27 ALT (9 - 52 U/L) 28 Albumin (3.5 - 5.0 g/dL) 3.4 L Cortisol AM Sample (4.46 - 22.7 ug/dL) 12.6 Hematology CBC w Diff NO MAN DIFF REQ WBC (4.8 - 10.8 /CUMM) 5.5 RBC (4.20 - 5.40 /CUMM) 4.29 Hgb (12.0 - 16.0 G/DL) 13.1 Hct (37 - 47 %) 38.3 MCV (81.0 - 99.0 FL) 89.3 MCH (27.0 - 31.0 PG) 30.6 MCHC (33.0 - 37.0 G/DL) 34.3 RDW (11.5 - 14.5 %) 14.2 Plt Count (130 - 400 /CUMM) 362 MPV (7.4 - 10.4 FL) 6.6 L Gran % (42.2 - 75.2 %) 72.4 Lymphocytes % (20.5 - 51.1 %) 16.6 L Monocytes % (1.7 - 9.3 %) 10.2 H Eosinophils % (0 - 5 %) 0.6 Basophils % (0.0 - 2.0 %) 0.2 Absolute Granulocytes (1.4 - 6.5 /CUMM) 4.0 Absolute Lymphocytes (1.2 - 3.4 /CUMM) 0.9 L Absolute Monocytes (0.10 - 0.60 /CUMM) 0.6 Absolute Eosinophils (0.0 - 0.7 /CUMM) 0 Absolute Basophils (0.0 - 0.2 /CUMM) 0 10/09 10/09 1849 1849 Chemistry Sodium (137 - 145 mmol/L) 120 L Potassium (3.5 - 5.1 mmol/L) 4.2 Chloride (98 - 107 mmol/L) 85 L Carbon Dioxide (22 - 30 mmol/L) 21 L Anion Gap (5 - 16) 14 BUN (7 - 17 mg/dL) 9 Creatinine (0.5 - 1.0 mg/dL) 1.1 H Estimated GFR (>60 ml/min) 48 L BUN/Creatinine Ratio (7 - 25 %) 8.2 Glucose (65 - 99 mg/dL) 85 Serum Osmolality (285 - 295 MOSM/KG) 246 L Calcium (8.4 - 10.2 mg/dL) 9.6 Total Bilirubin (0.2 - 1.3 mg/dL) 2.0 H AST (14 - 36 U/L) 33 ALT (9 - 52 U/L) 31 Alkaline Phosphatase (<127 U/L) 104 Troponin I (< 0.11 ng/ml) 0.02 Total Protein (6.3 - 8.2 g/dL) 6.3 Albumin (3.5 - 5.0 g/dL) 3.8 Globulin (1.9 - 4.2 gm/dL) 2.5 Albumin/Globulin Ratio (1.1 - 2.2 %) 1.5 TSH (0.270 - 4.200 uIU/mL) 0.998 Free T4 (0.78 - 2.44 ng/dL) 1.72 Hematology CBC w Diff NO MAN DIFF REQ WBC (4.8 - 10.8 /CUMM) 8.6 RBC (4.20 - 5.40 /CUMM) 4.41 Hgb (12.0 - 16.0 G/DL) 13.4 Hct (37 - 47 %) 39.1 MCV (81.0 - 99.0 FL) 88.7 MCH (27.0 - 31.0 PG) 30.5 MCHC (33.0 - 37.0 G/DL) 34.4 RDW (11.5 - 14.5 %) 14.2 Plt Count (130 - 400 /CUMM) 399 MPV (7.4 - 10.4 FL) 6.9 L Gran % (42.2 - 75.2 %) 80.9 H Lymphocytes % (20.5 - 51.1 %) 10.8 L Monocytes % (1.7 - 9.3 %) 8.0 Eosinophils % (0 - 5 %) 0.1 Basophils % (0.0 - 2.0 %) 0.2 Absolute Granulocytes (1.4 - 6.5 /CUMM) 6.9 H Absolute Lymphocytes (1.2 - 3.4 /CUMM) 0.9 L Absolute Monocytes (0.10 - 0.60 /CUMM) 0.7 H Absolute Eosinophils (0.0 - 0.7 /CUMM) 0 Absolute Basophils (0.0 - 0.2 /CUMM) 0 Urines Urine Color (YEL,AMB,STR) YEL Urine Clarity (CLEAR) CLEAR Urine pH (5.0 - 8.0) 6.0 Ur Specific [place] (1.001 - 1.035) 1.010 Urine Protein (NEG,<30 MG/DL) NEG Urine Ketones (NEG) 15 H Urine Nitrite (NEG) NEG Urine Bilirubin (NEG) NEG Urine Urobilinogen (0.1 - 1.0 EU/dl) 0.2 Ur Leukocyte Esterase (NEG) NEG Ur Microscopic EXAM NOT REQUIRED Urine Hemoglobin (NEG) NEG Urine Osmolality (300 - 1000 MOSM/KG) 113 L Ur Random Creatinine (mg/dL) 70.7 Ur Random Sodium (30 - 90 mmol/L) < 5 L Ur Random Potassium (mmol/L) 20.7 Fraction Sodium Excret (<1% %) 0.1 Urine Glucose (N MG/DL) NEG
[2017-10-12 14:27] VITALS: BP 110/60
[2017-10-12 22:45] VITALS: BP 112/60
[2017-10-13 06:20] VITALS: BP 140/70
--- NOTE | 2017-10-13 07:32 | PN- Housestaff ---
Subjective Follow-up For: Acute on chronic Hyponatremia Subjective: Seen and examined. Resting in wheelchair comfortably. Oriented to place. Does not offer any complaint. Stable to be discharged home sodium level 135 Review of Systems Constitutional: Reports: see HPI. Objective Last 24 Hrs of Vital Signs/I&O Vital Signs Date Time Temp Pulse Resp B/P B/P Pulse O2 O2 Flow FiO2 Mean Ox Delivery Rate 10/13 0800 Room Air 10/13 0620 98.2 68 18 140/70 94 Room Air 10/12 2245 98.3 64 18 112/60 96 Room Air 10/12 1427 97.6 69 18 110/60 97 Intake & Output 10/13 1600 10/13 0800 10/13 0000 Intake Total 100 100 Output Total 200 1400 Balance -200 100 -1300 Intake, Oral 100 100 Output, Urine 200 1400 Physical Exam General Appearance: Alert Cardiovascular: Normal S1, Normal S2 Lungs: Clear to Auscultation Abdomen: Normal Bowel Sounds, Soft Current Medications: Current Medications Sig/Dennise Start time Last Medication Dose Route Stop Time Status Admin Amlodipine Besylate 5 MG DAILY 10/10 09 AC 10/12 PO 1046 Citalopram 10 MG QAM 10/10 0900 DC 10/12 Hydrobromide PO 1046 Enoxaparin Sodium 40 MG DAILY 10/10 0900 AC 10/13 SC 0858 Furosemide 20 MG DAILY 10/11 1513 AC 10/13 PO 0858 Levothyroxine Sodium 0.0375 MG DAILY AC 10/10 0700 AC 10/13 PO 0630 Losartan Potassium 50 MG DAILY 10/10 0900 AC 10/12 PO 1046 Memantine 10 MG BID 10/09 2303 AC 10/13 PO 0858 Omeprazole 40 MG DAILY AC 10/10 0700 AC 10/13 PO 0630 Pravastatin Sodium 40 MG 1700 10/10 1700 AC 10/12 PO 1754 Risperidone 0.5 MG QAM 10/10 0900 AC 10/13 PO 0858 Sodium Chloride 1,000 MG TID 10/12 1400 AC 10/13 PO 0859 Last 24 Hrs of Lab/Jimmy Results Last 24 Hrs of Labs/Mics: Laboratory Tests 10/13/17 0643: Anion Gap 11, Estimated GFR 53 L, BUN/Creatinine Ratio 8.0 Assessment/Plan Assessment: The pt is 77-year-old female with PMH of Schwannoma/meningioma, dementia, tremors, Hashimotos thyroiditis with hypothyroidism presented to hospital after found wandering off in her own backyard and then found on ground. She was initially admitted to ICU and later transferred to general medicine floor. She is being treated and evaluated for following conditions #Acute on chronic Hyponatremia -NaCl tablets - 2 tabs a day -1000ml fluid restriction -lasix 20mg -Regular diet with ensure supplementation -Nephro on board - appreciate recs. #Confusion - secondary to Delirium with underlying dementia and hyponatremia Possibly attributable to delirium in the setting of low Na with a dementia background. Appears better and at her baseline. -Continue memantine 10mg BID and risperidone 0.5mg daily -As per psychiatric recommendations we are going to discontinue Celexa -Regarding her wandering pt will need a GPS tracker. -Family will need to install locks on the doors that lock with a white from the inside or a sliding lock at the top of the doorframes. -Family needs counseling on keeping her safety an absolute priority or ultimately elderly protective services will have to be called. #Chronic medical conditions HTN/HLD, GERD,Zion's thyroiditis with hypothyroidism mental health: Continue pravastatin 40mg, Losartan 50mg daily, omeprazole, levothyroxine 37 MCG schwannoma and meningioma: Stable #Regular diet with 1000 ML fluid restriction/Lovenox/FC Problem List: 1. Hyponatremia Pain Ratin Pain Location: none Pain Goal: Pain 4 or less Pain Plan: prn Tomorrow's Labs & Rationales: none
--- NOTE | 2017-10-13 09:34 | Discharge Summary ---
Visit Information Visit Dates Admission Date: 10/09/17 Discharge Date: 10/13/17 Hospital Course Course Attending Physician: Ba EVANS,Mamta Primary Care Physician: Ermias Jackson MD Hospital Course: The patient is 69-year-old female with past medical history of Alzheimer's/ vascular dementia, hypertension, hyperlipidemia, hypothyroidism, benign brain tumors (schwannoma, meningioma). The patient was brought in to [facility] ED on by family with complaint of confusion. Patient was found by the neighbors lying in her backyard on the ground barefoot. The family reported that patient has been having insomnia for past few days and they tried trazodone a couple of times however it did not help. Her confusion has been progressively getting worse. Her daughter reported poor oral intake, decreased appetite and consumption of large amount of water along with 3-4 beers every day. Her meals are prepared by her daughter without using any salt. Vitals on presentation were within normal limits Admission lab showed sodium of 120, This is decreased from 134, on 09/22/2017 and cr of 1.1. Serum Osm 246 urine sodium less than 5 and urine osmolality only 113 Rest of CBCs BEP results were unremarkable. EKGs did not show any acute changes and chest x-ray was negative for any acute cardiopulmonary process. The patient was initially admitted to ICU for closer monitoring and seizure precautions, later transferred to genernal medicine floor. She was evaluated and treated for Acute on chronic hyponatremia. The history and laboratory findings are most consistent with excessive water intake in the setting of chronic poor solute intake - a "tea and toast" scenario. Additionally patient was on risperidone and citalopram and drinks atlest 4 or more beers/day, which could have also contributed to the above picture. Nephrology was consulted and patient was started on [id number] fluid restriction, 1g sodium tablets twice a day and lasix 20 mg PO (lasix is home medication which was intially held in setting of ALIREZA). Patient's sodium was slowly corrected with most recent reading of 135. Patient confusion can be possibly attributable to delirium in the setting of low Na with a dementia background. There was no sign of infection. Patient remained afebrile without white count without any respiratory or urinary symptoms. She was not initially oriented to time place and person later became oriented to place around her baseline. Psychiatric evaluation was requested for management of her antidepressant/antipsychotic medications. Celexa was discontinued however we are going to continue risperidone. Patient worked with physical therapy and was cleared from their perspective for discharge to home As per psychiatric recommendation patient does not need inpatient geriatric admission at this time and family wants the patient to be discharged home. Patient's family has been extensively counseled to install locks on the doors that lock with a white from the inside or a sliding lock at the top of the doorframes and consider getting the GPS to prevent wandering. -Patient is being discharged on 1000 ML fluid restriction, 1 g NaCl tablets BID and home dose of Lasix to prevent future episodes -Fluid restriction is going to be a challenge given patient's history of dementia and requires active participation on family's part -She will require monitoring of her sodium levels by PCP and reading teacher. She has been provided with a BEP prescription to be done on 10/20 -Patient's family has been extensively counseled on her safety Patient is a full code during her stay. Her home medications pravastatin 40mg, Losartan 50mg daily, omeprazole, levothyroxine were continued Allergies: Coded Allergies: Penicillins (Severe, CONVULSIONS 12/29/15) STATINS ("REAL BAD BODY ACHES, CAN'T MOVE" 12/29/15) Disposition Summary Disposition Principal Diagnosis: Acute on chronic hyponatremia Additional Diagnosis: confusion can be possibly attributable to delirium in the setting of low Na with a dementia background. Discharge Disposition: home health services Discharge Instructions General Discharge Information Code Status: Full Code Patient's Diet: Regular diet with 1000 ML fluid restriction Patient's Activity: As tolerated Follow-Up Instructions/Appts: Follow-up with PCP and nephrology after discharge Medications at Discharge Discharge Medications: Stop taking the following medications: Citalopram Hydrobromide (Citalopram HBr) 10 MG TABLET ORAL Every Morning Continue taking these medications: Risperidone (Risperdal) 1 MG TABLET 0.5 Milligram ORAL Every Morning Comments: Last Taken:11/25/16 Time:9:49A.M Ergocalciferol (Vitamin D2) (Vitamin D2) 50,000 UNIT CAPSULE 1 Capsule ORAL EVERY TUESDAY Comments: Last Taken:NOT GIVEN THIS ADMISSION Time: Memantine HCl (Namenda) 10 MG TABLET 1 Tablet ORAL TWICE DAILY Comments: Last Taken: 10/13/17 Time: 8:58 AM Pantoprazole Sodium (Protonix) 40 MG TABLET.DR 1 Tablet ORAL AT BEDTIME Comments: NOT GIVEN IN HOSPITAL Pravastatin Sodium (Pravastatin Sodium) 40 MG TABLET 1 Tablet ORAL DAILY Comments: Last Taken: 10/12/17 Time: 5:54 PM Amlodipine Besylate (Amlodipine Besylate) 5 MG TABLET 5 Milligram ORAL DAILY Qty = 30 Comments: Last Taken: 10/12/17 Time:10:46 AM Losartan Potassium (Losartan Potassium) 50 MG TABLET 50 Milligram ORAL DAILY Qty = 30 Comments: Last Taken: 10/12/17 Time: 10:46 AM Furosemide (Lasix) 20 MG TABLET 1 Tablet ORAL DAILY as needed for pedal edema Qty = 30 Comments: Last Taken: 10/13/17 Time: 8:58 AM Levothyroxine Sodium (Levothyroxine Sodium) 25 MCG TABLET 1.5 Tablet ORAL DAILY Comments: Last Taken: 10/13/17 Time: 6:30 AM Start taking the following new medications: Sodium Chloride (Sodium Chloride) 1 GRAM TABLET 1 Tablet ORAL TWICE DAILY Qty = 30 No Refills Instructions: . Comments: Last Taken: 10/13/17 Time: 8:59 AM Copies To: Manuel EVANS,Ermias Dave; Mounika EVANS,Saleem Rubin Attending Review Statement Documenting Attending: Mamta Cosme MD Attending Review Statement Documenting Attending: Mamta Cosme MD
[2017-10-13] MEDS ORDERED: SODIUM CHLORIDE1 G2 PO ×2 (09:39→12:00)
--- NOTE | 2017-10-13 09:44 | Patient Discharge Instructions ---
Discharge Instructions General Discharge Information You were seen/treated for: LOW SODIUM LEVELS Special Instructions: -please follow up with your primary care doctor after discharge -please follow up with insurance marketing specialist after discharge -you will need monitoring of sodium numbers, so blood work needs to be done on , you have been provided with prescription for that -Regarding her wandering pt will need a GPS tracker. -Family will need to install locks on the doors that lock with a white from the inside or a sliding lock at the top of the doorframes. Diet Continue normal diet: Yes Recommended Diet: Fluid restriction 1000ml Limit DAILY fluid amt to mls: 1000 Additional DIET Information: please closely monitor fluid intake, you are on 1000ml fluid restriction Activity Activity Self Limited: Yes Acute Coronary Syndrome Inclusion Criteria At DC or during hospital stay patient has or had the following: ACS DIAGNOSIS No Discharge Core Measures Meds if any: Prescribed or Continued at Discharge Meds if any: NOT Prescribed or Continued at Discharge Congestive Heart Failure Inclusion Criteria At DC or during hospital stay patient has or had the following: CHF DIAGNOSIS No Discharge Core Measures Meds if any: Prescribed or Continued at Discharge Meds if any: NOT Prescribed or Continued at Discharge Cerebrovascular accident Inclusion Criteria At DC or during hospital stay patient has or had the following: CVA/TIA Diagnosis No Discharge Core Measures Meds if any: Prescribed or Continued at Discharge Meds if any: NOT Prescribed or Continued at Discharge Venous thromboembolism Inclusion Criteria VTE Diagnosis No VTE Type NONE VTE Confirmed by (Test) NONE Discharge Core Measures - Per Current guidelines, there needs to be overlap - treatment for the first 5 days of Warfarin therapy. - If discharged on Warfarin prior to 5 days of - overlap therapy, the patient will need to be - assessed for post discharge needs including - *Post discharge parental anticoagulation - *Warfarin and/or parental anticoagulation education - *Follow up date to check INR post discharge At least 5 days overlap therapy as Inpatient No Meds if any: Prescribed or Continued at Discharge Note: Overlap Therapy is Warfarin and Anticoagulant Meds if any: NOT Prescribed or Continued at Discharge
--- NOTE | 2017-10-13 12:21 | PN- Att Addend ---
Attending Addendum Attending Brief Note Patient seen and examined. Plan of care discussed with the medical team and the patient. Available lab work and radiology test reports were reviewed. Patient is awake alert and partially oriented to place now and appears much better compared to yesterday. She was to go home today. She otherwise appears without any distress and is pleasant and conversant. She has a sitter at the bedside. Exam: General: Patient awake alert partially oriented without any distress CVS: S1 plus S2 without any murmur or gallops Chest: Few scattered crepitation without any wheeze. There is no respiratory distress. Abdomen: Soft non-tender, bowel sound present, no guarding or rebound HEADLINER INSTALLER: Awake alert partially oriented without any focal neuro deficit and follows commands appropriately Extremities: No edema; no clubbing or cyanosis noted Assessment * Hyponatremia-resolved * Dementia * Delirium superimposed on dementia, probably due to hyponatremia; no other triggers are identified except the patient had used trazodone for 2 days before admission; * History of hypertension * History of hypothyroidism Plan * Continue supportive care * Frequent reorientation and greater involvement of family in her care * Plan for discharge home with family today * continue fluid restrictions and sodium tablets at home Total time spent in preparation for discharge plan, patient education, and CMR preparation was 35 minutes. Current Medications Sig/Dennise Start time Last Medication Dose Route Stop Time Status Admin Amlodipine Besylate 5 MG DAILY 10/10 09 AC 10/12 PO 1046 Citalopram 10 MG QAM 10/10 0900 DC 10/12 Hydrobromide PO 1046 Enoxaparin Sodium 40 MG DAILY 10/10 09 AC 10/13 SC 0858 Furosemide 20 MG DAILY 10/11 1513 AC 10/13 PO 0858 Levothyroxine Sodium 0.0375 MG DAILY AC 10/10 0700 AC 10/13 PO 0630 Losartan Potassium 50 MG DAILY 10/10 0900 AC 10/12 PO 1046 Memantine 10 MG BID 10/09 2303 AC 10/13 PO 0858 Omeprazole 40 MG DAILY AC 10/10 0700 AC 10/13 PO 0630 Pravastatin Sodium 40 MG 1700 10/10 1700 AC 10/12 PO 1754 Risperidone 0.5 MG QAM 10/10 0900 AC 10/13 PO 0858 Sodium Chloride 1,000 MG TID 10/12 1400 AC 10/13 PO 0859 Sodium Chloride 1,000 MG BID 10/11 2100 DC 10/12 PO 1047 Laboratory Tests 10/13/17 0643: Anion Gap 11, Estimated GFR 53 L, BUN/Creatinine Ratio 8.0 10/12/17 0636: Anion Gap 10, Estimated GFR > 60, BUN/Creatinine Ratio 7.8 10/11/17 0705: Anion Gap 8, Estimated GFR > 60, BUN/Creatinine Ratio 8.9, CBC w Diff NO MAN DIFF REQ, RBC 4.28, MCV 89.7, MCH 30.5, MCHC 34.0, RDW 14.3, MPV 7.0 L, Gran % 70.8, Lymphocytes % 19.8 L, Monocytes % 8.1, Eosinophils % 0.9, Basophils % 0.4 , Absolute Granulocytes 3.6, Absolute Lymphocytes 1.0 L, Absolute Monocytes 0.4 , Absolute Eosinophils 0, Absolute Basophils 0 10/11/17 0209: Anion Gap 6, Estimated GFR > 60, BUN/Creatinine Ratio 8.8 10/10/17 2018: Anion Gap 8, Estimated GFR > 60, BUN/Creatinine Ratio 8.8 10/10/17 1830: Vital Signs Date Time Temp Pulse Resp B/P B/P Pulse O2 O2 Flow FiO2 Mean Ox Delivery Rate 10/13 0800 Room Air 10/13 0620 98.2 68 18 140/70 94 Room Air 10/12 2245 98.3 64 18 112/60 96 Room Air 10/12 1427 97.6 69 18 110/60 97 Intake & Output 10/13 1600 10/13 0800 10/13 0000 Intake Total 100 100 Output Total 200 1400 Balance -200 100 -1300 Intake, Oral 100 100 Output, Urine 200 1400
== END 2017-10-13 13:27 | disposition home health service (06) | DRG 641 ==
LOC: ERH 17:55 → CRI 20:56 → ERHI 20:56 → ENTRNSPT 22:00 → EDTRNSPTSTS 22:16 → CRI 22:29 → CMPTRNSPT 22:30 → CRI 22:31 → 2NA 10-10 21:05 → ENPENDDIS 10-13 11:29 → ENTRNSPT 10-13 13:07 → 2NA 10-13 13:27 → EDTRNSPTSTS 10-13 13:28 → EDTRNSPT 10-13 13:28 → CMPTRNSPT 10-13 13:33
PROVIDERS: Emergency Medicine; Internal Medicine; Student in an Organized Health Care Education/Training Program
DX: E87.1 Hypo-osmolality and hyponatremia (principal); G30.9 Alzheimer's disease, unspecified; F02.81 Dementia in other diseases classified elsewhere, unspecified severity, with behavioral disturbance; F05 Delirium due to known physiological condition; E03.9 Hypothyroidism, unspecified; K21.9 Gastro-esophageal reflux disease without esophagitis; Z72.89 Other problems related to lifestyle; E78.5 Hyperlipidemia, unspecified; Z88.0 Allergy status to penicillin; Z88.8 Allergy status to other drugs, medicaments and biological substances; Z90.710 Acquired absence of both cervix and uterus; R55 Syncope and collapse; D36.10 Benign neoplasm of peripheral nerves and autonomic nervous system, unspecified
CPT/HCPCS: 2NAP; 84133; 84300; CCU; 36415; 36592; 71045; 81003; 82436; 82570; 87086; 93005; 93010; 97116-GO; 97161-GP; 99291; J1650; J3101; J7060

== ENCOUNTER 2017-10-24 20:42 | Inpatient (IN) | payer OTHER ==
[~2017-10-24] VITALS: Ht 167.6 cm; Wt 53.2 kg
[~2017-10-24 20:42] MED LIST changes: +LEVOTHYROXINE25 MCG PO; -PROTONIX40 M3 PO; +SODIUM CHLORIDE1 G2 PO
[2017-10-24 21:35] LABS: ABSOLUTE BASOPHIL COUNT 0 /CUMM (0.0-0.2); ABSOLUTE EOSINOPHIL COUNT 0 /CUMM (0.0-0.7); ABSOLUTE GRANULOCYTE CT 6.2 /CUMM (1.4-6.5); ABSOLUTE LYMPH COUNT 0.9 /CUMM (1.2-3.4); ABSOLUTE MONOCYTE COUNT 0.4 /CUMM (0.10-0.60); BASOPHIL % 0.5 % (0.0-2.0); EOSINOPHIL % 0.5 % (0-5); GRANULOCYTE % 82.1 % (42.2-75.2); HEMATOCRIT 34.9 % (37-47); MEAN CORPUSCULAR HGB 30.4 PG (27.0-31.0); MEAN CORPUSCULAR HGB CONC 34.5 G/DL (33.0-37.0); MEAN CORPUSCULAR VOLUME 88.1 FL (81.0-99.0); MEAN PLATELET VOLUME 6.5 FL (7.4-10.4); PLATELET COUNT 334 /CUMM (130-400); RBC DISTRIBUTION WIDTH 13.5 % (11.5-14.5); RED BLOOD CELL CT 3.96 /CUMM (4.20-5.40); WHITE BLOOD CELL COUNT 7.6 /CUMM (4.8-10.8)
--- NOTE | 2017-10-24 22:22 | ED GENERAL ADULT ---
History of Present Illness General Chief Complaint: General Adult Stated Complaint: "IM NOT FEELING WELL" Source: family, old records Exam Limitations: dementia Vital Signs & Intake/Output Vital Signs & Intake/Output Vital Signs Date Time Temp Pulse Resp B/P B/P Pulse O2 O2 Flow FiO2 Mean Ox Delivery Rate 10/24 2334 75 18 171/99 96 Room Air 10/24 2103 97.1 75 16 201/94 98 Room Air Allergies Coded Allergies: Penicillins (Severe, CONVULSIONS 12/29/15) STATINS ("REAL BAD BODY ACHES, CAN'T MOVE" 12/29/15) Reconcile Medications Amlodipine Besylate 5 MG TABLET 5 MG PO DAILY HYPERTENSION Ergocalciferol (Vitamin D2) (Vitamin D2) 50,000 UNIT CAPSULE 1 CAP PO QFRI SUPPLEMENT (Reported) Levothyroxine Sodium 25 MCG TABLET 1.5 TAB PO DAILY HYPOTHYROIDISM (Reported) Losartan Potassium 50 MG TABLET 50 MG PO DAILY HYPERTENSION Memantine HCl (Namenda) 10 MG TABLET 1 TAB PO BID DEMENTIA (Reported) Sodium Chloride 1 GRAM TABLET 1 TAB PO BID LOW SODIUM . Triage Note: PT PRESENTS TO THE ER FOR CP, AND VOMITTING. PER DAUGHTER PT EYES ARE PUFFY.. AND PT IS ALERTED.. PT STATES THAT SHE DOES NOT FELL RIGHT. PT STATES THAT HER CHEST DOES NOT HURT BUT DURING TRIAGE PT IS GRIPPING HER CHEST... PT STATES THAT I JUST WANT TO GO HOME. Triage Nurses Notes Reviewed? yes HPI: Patient brought in by her daughter for evaluation of increasing lethargy. Patient was recently admitted for hyponatremia. Patient has been taking her salt tablets and free water restriction. Daughter noticed that she started to become more confused yesterday. Patient does have a history of dementia however her confusion is worse than normal. She brought in for evaluation today. Patient is unable to provide any history. There is also noticed that she has been having a productive cough of thick white sputum for the past 3-4 days. Past History Travel History Traveled to [place] past 21 day No Medical History Any Pertinent Medical History? 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 No Review of Systems Review of Systems Constitutional: Reports: see HPI. Physical Exam Physical Exam General Appearance: awake, anxious Head: atraumatic, normal appearance Eyes: Bilateral: PERRL, EOMI. Ears, Nose, Throat: normal pharynx, normal ENT inspection, hearing grossly normal Neck: normal inspection, supple, full range of motion Respiratory: normal breath sounds, chest non-tender, no respiratory distress, lungs clear Cardiovascular: regular rate/rhythm, normal peripheral pulses Gastrointestinal: normal bowel sounds, soft, non-tender Back: normal inspection, normal range of motion Extremities: normal inspection, normal capillary refill, normal range of motion, no edema Neurologic/Psych: no motor/sensory deficits, awake, oriented x 3, normal mood/ affect Core Measures ACS in differential dx? No CVA/TIA Diagnosis: No Sepsis Present: No Sepsis Focused Exam Completed? No Progress Differential Diagnoses I considered the following diagnoses in my evaluation of the patient: [ Electrolyte abnormality, pneumonia, CVA, UTI] Plan of Care: Orders Procedure Date/time Status Nothing by Mouth 10/25 B Active ICU LAB BUNDLE 10/25 0500 Active CBC WITHOUT DIFFERENTIAL 10/25 0500 Active ICU LAB BUNDLE 10/25 0200 Active SODIUM 10/24 2330 Active Pathway - chart 10/25 2251 Active House Staff 10/24 225 Active Patient Data 10/24 225 Active Code Status 10/24 225 Active Patient Data 10/24 223 Active Telemetry/Repeat Chief 10/24 2232 Active Admit to inpatient 10/24 2229 Active Continuous Observation Monitor 10/24 223 Active URINE OSMOLALITY 10/24 222 Active Intake & Output 10/24 221 Active SERUM OSMOLALITY 10/25 2123 Active ETHANOL 10/25 2123 Active URINALYSIS 10/25 2107 Complete TROPONIN LEVEL 10/24 2106 Active MAGNESIUM 10/24 2106 Active COMPREHENSIVE METABOLIC PANEL 10/24 2106 Active CBC WITHOUT DIFFERENTIAL 10/24 2106 Complete EKG 10/24 2106 Active SWALLOW EVALUATION 10/24 UNK Active Lab Add-on Test 10/24 UNK Active VTE Mechanical Prophylaxis 10/24 UNK Active Current Medications Sig/Ednnise Start time Last Medication Dose Stop Time Status Admin Levothyroxine Sodium 0.0375 MG DAILY 10/25 09 UNVr (Synthroid) Memantine 10 MG BID 10/25 09 UNVr (Namenda) Sodium Chloride 1,000 MG BID 10/24 2333 UNVr (Sodium Chloride) Magnesium Sulfate 1 GM Q2H 10/24 2244 AC 10/24 (Mag Sulfate in D5) 10/26 243 2320 Dextrose/Water 100 ML (D5W) Laboratory Tests 10/24/17 2245: Urine Color YEL, Urine Clarity CLEAR, Urine pH 6.5, Ur Specific [place] <= 1.005 , Urine Protein NEG, Urine Ketones TRACE H, Urine Nitrite NEG, Urine Bilirubin NEG, Urine Urobilinogen 0.2, Ur Leukocyte Esterase SMALL H, Ur Microscopic SEDIMENT EXAMINED, Urine RBC RARE, Urine WBC 1-3 H, Urine Bacteria FEW H, Urine Hemoglobin TRACE-INTACT, Urine Glucose NEG 10/24/175: Urine Osmolality Pending 10/24/174: Anion Gap 11, Estimated GFR > 60, BUN/Creatinine Ratio 8.8, Glucose 88, Serum Osmolality Pending, Calcium 8.1 L, Magnesium 1.3 L, Total Bilirubin 1.5 H, AST 24, ALT 34, Alkaline Phosphatase 86, Troponin I 0.01, Total Protein 6.0 L, Albumin 3.2 L, Globulin 2.8, Albumin/Globulin Ratio 1.1, CBC w Diff NO MAN DIFF REQ, RBC 3.96 L, MCV 88.1, MCH 30.4, MCHC 34.5, RDW 13.5, MPV 6.5 L, Gran % 82.1 H, Lymphocytes % 11.7 L, Monocytes % 5.2, Eosinophils % 0.5, Basophils % 0.5, Absolute Granulocytes 6.2, Absolute Lymphocytes 0.9 L, Absolute Monocytes 0.4, Absolute Eosinophils 0, Absolute Basophils 0, Serum Alcohol Pending Diagnostic Imaging: Viewed by Me: Radiology Read. Discussed w/RAD: Radiology Read. CXR Impression: PATIENT: TIAGO POWERS I PRESENT AGE: 77 PATIENT ACCOUNT NO: [id number] : 38 LOCATION: [facility] ORDERING PHYSICIAN: Dino Jeffries MD SERVICE DATE: 10/24/17 EXAM TYPE: RAD - XRY-PORTABLE CHEST XRAY EXAMINATION: XR PORTABLE CHEST CLINICAL INFORMATION: Dementia, productive cough COMPARISON: 10/09/2017 TECHNIQUE: Portable frontal view of the chest was obtained. FINDINGS: The lungs are clear with no focal consolidation. No evidence of pneumothorax, pulmonary edema, or pleural effusions. The cardiomediastinal silhouette is unremarkable. No acute osseous findings. IMPRESSION: No acute cardiopulmonary findings. DICTATED BY: Bj Lainez MD DATE/TIME DICTATED:10/24/172327 ASBESTOS COVERER:CROW DATE/TIME TRANSCRIBED:10/24/172327 CONFIDENTIAL, DO NOT COPY WITHOUT APPROPRIATE AUTHORIZATION. <Electronically signed in Other Vendor System> SIGNED BY: Bj Lainez MD 10/24/17 3164 Initial ED EKG: NSR, nonspecific ST T wave chg Prior EKG: unchanged Rhythm Strip: normal sinus rhythm Departure Departure Disposition: STILL A PATIENT Condition: Guarded Clinical Impression Primary Impression: Hyponatremia Secondary Impressions: Hypokalemia Referrals: Ermias Jackson MD (PCP/Family) Departure Forms: Customer Survey General Discharge Information Admission Note Spoke With: Cece Fraga MD Documentation of Exam: Documentation of any treatments & extenuating circumstances including Concerns Regarding Discharge (functional status, medication knowledge or non-compliance, living conditions, etc.) that warrant an admission rather than observation: [ICU ADMISSION, FREE WATER RESTRICT, ELECTROLYTE REPLACEMENT, CLOSE MONITORING] Critical Care Note Critical Care Note Critical Care Time: mins: (90 MIN)
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
--- NOTE | 2017-10-24 23:33 | RADIOLOGY REPORT ---
EXAMINATION: XR PORTABLE CHEST CLINICAL INFORMATION: Dementia, productive cough COMPARISON: 10/09/2017 TECHNIQUE: Portable frontal view of the chest was obtained. FINDINGS: The lungs are clear with no focal consolidation. No evidence of pneumothorax, pulmonary edema, or pleural effusions. The cardiomediastinal silhouette is unremarkable. No acute osseous findings. IMPRESSION: No acute cardiopulmonary findings.
--- NOTE | 2017-10-25 00:18 | Admission Certification ---
Admission Certification Certification Statement - As attending physician, I certify that at the time of - admission, based on clinical presentation, severity of - symptoms, need for further diagnostic testing and - therapeutic interventions, and risk of adverse outcomes - without in-hospital treatment, in my clinical assessment, - this patient requires an acute hospital stay for a minimum - of two nights or longer. I have also considered psychsocial - factors such as support system, advanced age, financial - issues, cognitive issues, and failed out-patient treatments, - past re-admission history, safety of patient, and lack of - compliance as applicable. Specific rationale supporting this admission is: Acute on chronic hyponatremia, confusion, agitation.
[2017-10-25 00:53] VITALS: BP 140/80
[2017-10-25] MEDS ORDERED: THIORIDAZINE HC10 MG PO (01:08)
[2017-10-25] MEDS ORDERED: CHLORPROMAZINE10 M2 PO (01:59)
[2017-10-25 03:11] LABS: ABSOLUTE BASOPHIL COUNT 0 /CUMM (0.0-0.2); ABSOLUTE EOSINOPHIL COUNT 0 /CUMM (0.0-0.7); ABSOLUTE GRANULOCYTE CT 4.9 /CUMM (1.4-6.5); ABSOLUTE LYMPH COUNT 0.8 /CUMM (1.2-3.4); ABSOLUTE MONOCYTE COUNT 0.3 /CUMM (0.10-0.60); BASOPHIL % 0.3 % (0.0-2.0); EOSINOPHIL % 0.5 % (0-5); GRANULOCYTE % 80.4 % (42.2-75.2); MEAN CORPUSCULAR HGB 30.3 PG (27.0-31.0); MEAN CORPUSCULAR HGB CONC 34.4 G/DL (33.0-37.0); MEAN PLATELET VOLUME 6.8 FL (7.4-10.4); PLATELET COUNT 323 /CUMM (130-400); RBC DISTRIBUTION WIDTH 13.6 % (11.5-14.5); RED BLOOD CELL CT 3.75 /CUMM (4.20-5.40); WHITE BLOOD CELL COUNT 6.1 /CUMM (4.8-10.8)
--- NOTE | 2017-10-25 07:18 | Cons- CRCU ---
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 On presenation, [place] ED she was found to have a sodium level CXVII, with a urine largely of 62 and a urine sodium of 7. Daughter reports that the patient's sodium level was checked in October 21 and it was 132. Her TSH and cortisol were checked and all normal. Patient was admitted to ICU for close monitoring of severe symptomatic hyponatremia. BPs showed an uptrending sodium with the midnight one being 126, and the 6:30am draw being 133. Pt Was then started on D5 and sodium chloride tabs stopped. ICU team was consulted to help in the management of the severe asymptomatic hyponatremia. Nephrology is also on board and recommended increasing the D5 to 500 mils per hour for a few hours and DDAVP 2 g dose. When seen earlier today in the morning, patient was still disoriented but not agitated. Allergies/Medications Allergies: Coded Allergies: Penicillins (Severe, CONVULSIONS 12/29/15) STATINS ("REAL BAD BODY ACHES, CAN'T MOVE" 12/29/15) Home Med List: Amlodipine Besylate 5 MG TABLET 5 MG PO DAILY HYPERTENSION Chlorpromazine HCl 10 MG TABLET 10 MG PO DAILY Mental health (Reported) Ergocalciferol (Vitamin D2) (Vitamin D2) 50,000 UNIT CAPSULE 1 CAP PO QFRI SUPPLEMENT (Reported) Levothyroxine Sodium 25 MCG TABLET 1.5 TAB PO DAILY HYPOTHYROIDISM (Reported) Losartan Potassium 50 MG TABLET 50 MG PO DAILY HYPERTENSION Memantine HCl (Namenda) 10 MG TABLET 1 TAB PO BID DEMENTIA (Reported) Sodium Chloride 1 GRAM TABLET 1 TAB PO BID LOW SODIUM . Current Medications: Current Medications Sig/Dennise Start time Last Medication Dose Route Stop Time Status Admin Amlodipine Besylate 5 MG DAILY 10/25 1254 DC PO Chlorpromazine 10 MG ONCE ONE 10/24 2230 DC 10/24 PO 10/24 223 2249 Desmopressin Acetate 2 MCG ONCE ONE 10/25 0800 DC 06 SC 10/25 0801 0803 Dextrose/Water 1,000 ML .Q2H 10/25 1100 DC IV 10/25 1259 Dextrose/Water 1,000 ML ONCE ONE 10/25 0915 DC 10/25 IV 10/25 1114 0915 Dextrose/Water 1,000 ML .Q2H 10/25 0730 CAN IV Dextrose/Water 1,000 ML ONCE ONE 10/25 0700 DC 10/25 IV 10/25 1339 0701 Enoxaparin Sodium 40 MG DAILY 10/25 0900 AC 10/25 SC 0806 Levothyroxine Sodium 0.0375 MG DAILY AC 10/25 0700 AC 10/25 PO 0701 Magnesium Sulfate 1 GM .STK-MED ONE 10/25 0107 DC IV 10/25 0108 Magnesium Sulfate 1 GM Q2H 10/24 2245 DC 10/25 Dextrose/Water 100 ML IV 10/25 0244 0110 Memantine 10 MG BID 10/25 0900 AC 10/25 PO 0806 Omeprazole 20 MG DAILY AC 10/25 1042 AC PO Potassium Chloride 60 MEQ ONCE ONE 10/25 0545 DC 10/25 PO 10/25 0546 0808 Potassium Chloride 10 MEQ Q1H 10/25 0400 DC 10/25 IV 10/25 0501 0556 Potassium Chloride 0 .STK-MED ONE 10/24 2241 DC PO Potassium Chloride 40 MEQ ONCE ONE 10/24 2230 DC / PO 10/24 2231 2249 Quetiapine Fumarate 25 MG ONCE ONE 10/25 0215 DC 10/25 PO 10/25 0216 0248 Ramelteon 8 MG ONE TIME ONE 10/25 2345 CAN PO 10/25 2346 Sodium Chloride 1,000 MG BID 10/24 2333 DC 10/24 PO 2356 Review of Systems Review of Systems Constitutional: Reports: see HPI. 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 Home Who Do You Live With? Grandson Services at Home: None Primary Language: Jordanian Smoking Status: Former Smoker ETOH Use: occasional use Illicit Drug Use: denies illicit drug use Power of Tutor/HCP? yes (Daughter Elisa ) Functional Ability ADLs Independent: toileting. Ambulation: independent IADLs Needs Assist: shopping, housework, finances, food prep, transportation, medication admin. Exam & Diagnostic Data Last 24 Hrs of Vital Signs/I&O Vital Signs Date Time Temp Pulse Resp B/P B/P Pulse O2 O2 Flow FiO2 Mean Ox Delivery Rate 10/25 08 98.0 62 22 150/72 98 Room Air 10/25 0400 99 Room Air 10/25 0128 96 Nasal 2.0L Cannula 10/25 0056 98 Room Air / 0053 97.8 73 24 140/80 98 Room Air / 2334 75 18 171/99 96 Room Air / 2103 97.1 75 16 201/94 98 Room Air Intake & Output 10/25 1600 06/05 0800 06/05 0000 Intake Total 400 0 Output Total 2400 Balance -2000 0 Intake, IV 400 Intake, Oral 0 Output, Urine 2400 Patient 86.183 kg 86.183 kg Weight Weight Reported by Patient Measurement Method Physical Exam General Appearance: awake Head: atraumatic, normal appearance Eyes: Bilateral: normal appearance. Ears, Nose, Throat: normal pharynx, hearing grossly normal Neck: normal inspection, supple, full range of motion, JVD Respiratory: normal breath sounds, chest non-tender Cardiovascular: regular rate/rhythm Gastrointestinal: normal bowel sounds, soft, non-tender Extremities: normal inspection, normal capillary refill, normal range of motion, no edema Neurologic/Psych: awake, oriented to person only Last 48 Hrs of Labs/Jimmy: Laboratory Tests 10/25/17 0820: Urine Osmolality 62 L, Ur Random Creatinine Pending, Ur Random Sodium Pending, Ur Random Potassium Pending, Fraction Sodium Excret Pending 10/25/17 0725: Urine Osmolality Cancelled 10/25/17 0712: Urine Total Volume Cancelled, Ur Sodium 24 Hour Cancelled, Ur Potassium 24 Hour Cancelled 10/25/17 0620: 10/25/17 0500: Sodium Cancelled, Potassium Cancelled, Chloride Cancelled, Carbon Dioxide Cancelled, Anion Gap Cancelled, BUN Cancelled, Creatinine Cancelled, Glucose Cancelled, Calcium Cancelled, Phosphorus Cancelled, Magnesium Cancelled, Total Bilirubin Cancelled, AST Cancelled, ALT Cancelled, Albumin Cancelled 10/25/17 0257: Anion Gap 13, Estimated GFR > 60, Glucose 117 H, Calcium 8.2 L, Phosphorus 2.1 L, Magnesium 2.4 H, Total Bilirubin 1.5 H, AST 20, ALT 28, Albumin 3.0 L, TSH 1.360, Free T4 1.29, Cortisol AM Sample 13.3, CBC w Diff NO MAN DIFF REQ, RBC 3.75 L, MCV 88.0, MCH 30.3, MCHC 34.4, RDW 13.6, MPV 6.8 L, Gran % 80.4 H , Lymphocytes % 13.6 L, Monocytes % 5.2, Eosinophils % 0.5, Basophils % 0.3, Absolute Granulocytes 4.9, Absolute Lymphocytes 0.8 L, Absolute Monocytes 0.3, Absolute Eosinophils 0, Absolute Basophils 0 10/25/17 0003: 10/24/17 2245: Urine Color YEL, Urine Clarity CLEAR, Urine pH 6.5, Ur Specific [place] <= 1.005 , Urine Protein NEG, Urine Ketones TRACE H, Urine Nitrite NEG, Urine Bilirubin NEG, Urine Urobilinogen 0.2, Ur Leukocyte Esterase SMALL H, Ur Microscopic SEDIMENT EXAMINED, Urine RBC RARE, Urine WBC 1-3 H, Urine Bacteria FEW H, Urine Hemoglobin TRACE-INTACT, Urine Glucose NEG 10/24/17 2225: Urine Osmolality 44 L, Ur Random Creatinine 8.5, Ur Random Sodium 7 L, Ur Random Potassium 4.1, Fraction Sodium Excret 0.6 10/24/174: Anion Gap 11, Estimated GFR > 60, BUN/Creatinine Ratio 8.8, Glucose 88, Serum Osmolality 243 L, Calcium 8.1 L, Magnesium 1.3 L, Total Bilirubin 1.5 H, AST 24, ALT 34, Alkaline Phosphatase 86, Troponin I 0.01, Total Protein 6.0 L, Albumin 3.2 L, Globulin 2.8, Albumin/Globulin Ratio 1.1, CBC w Diff NO MAN DIFF REQ, RBC 3.96 L, MCV 88.1, MCH 30.4, MCHC 34.5, RDW 13.5, MPV 6.5 L, Gran % 82.1 H, Lymphocytes % 11.7 L, Monocytes % 5.2, Eosinophils % 0.5, Basophils % 0.5, Absolute Granulocytes 6.2, Absolute Lymphocytes 0.9 L, Absolute Monocytes 0.4, Absolute Eosinophils 0, Absolute Basophils 0, Serum Alcohol < 10.0 Assessment/Plan CRCU Impression/Plan: 77-year-old lady with a history of dementia foci Yifan, schwannoma, meningioma, hyperlipidemia, hypertension, chronic treatment managed by Nacl tablets 1 g 3 times a day, fluid restriction and Lasix, presents to [place] ED with altered mental status in the setting of sodium level 118. Noted to have had an episode of choking on food requiring the daughter to perform Heimlich maneuver. Pt was admitted to ICU for management of severe Symptomatic hyponatremia. Assessment and plan Respiratory: Stable saturating well on room air. Infection: Afebrile with no leukocytosis and no clinical signs of acute infection. Cardiology: Normal sinus rhythm. Hematological: Stable with no derangements noted Metabolic: Severe symptomatic hyponatremia. The urine lites showing osmolarity of 44 and a sodium level of 7 is highly suggestive of polydipsia. And though patient's daughter states that she has been very strict with restricting her fluid intake, it is most likely that the patient has been drinking copious amounts most likely without the knowledge of her daughter. Treatment is normally fluid restriction. Given the rapid correction of sodium levels, treated for impending for correction by starting D5 at 500ml/hr (pt is polyuric) . Alimentary: Neuro: He is confused to place and time. Baseline dementia however this presentation is more an acute on chronic with marked altered mental status. This id From her hyponatremia. Will need to carefully monitor for CPM in the setting of overcorrection, as she is high risk , Consult Acknowledgment - Thank you for your consult request. Yoan Álvarez MD 10/25/17 1110: Assessment/Plan CRCU Other Findings/Comments: Yoan Angela M.D. have examined this patient, reviewed available EMR data, personally reviewed images, discussed with resident/PA/PLASTERER TENDER, discussed management plan with housestaff and nursing staff, discussed managment plan all of healthcare providers, discussed management plan with patient and/or family, agreed with resident/PA/PLASTERER TENDER. The past history and parts of the chart have been autopopulated. Impression 77-year-old woman with hyponatremia that is mostly chronic however likely related to poor sodium intake and psychogenic polydipsia. Quick correction of sodium. Plan -Nephrology consultation is appreciated -DDAVP, D5W -q2 blood work -stable mental status at this time -will adjust fluids based on labs DVT prophylaxis at all times TTS 40 min Consult Acknowledgment - Thank you for your consult request.
[2017-10-25 08:00] VITALS: BP 150/72
--- NOTE | 2017-10-25 09:18 | Cons- Nephrology ---
General Information and HPI Consulting Request Date of Consult: 10/25/17 Requested By: Flakito EVANS,Cece Reason for Consult: hyponatremia Source of Information: patient, family, old records Exam Limitations: confusion, dementia History of Present Illness: The patient is a 69-year-old female with past medical history of Alzheimer's/ vascular dementia, hypertension, hyperlipidemia, hypothyroidism, benign brain tumors (schwannoma, meningioma), who was recently admitted to [facility] in September & discharged 10/13/2017 for hyponatremia (Na+ 120), seen by Dr Ribera and low Na+ was attributed to tea and toast diet. She also had been drinking alcohol by her to the most recent admission. She was discharged on salt tablets. On October 21 outpatient sodium level was 135, on routine follow-up outpatient labs. Yesterday she was brought in by her daughter after the patient was found to be increasingly confused and agitated. The daughter reported that she's been trying to enforce a 1200 mL per day fluid restriction, and that the patient has not been drinking alcohol. Additionally the patient apparently vomited 5 times prior to admission and had a choking episode on a potato chip prompting her daughter to perform the Heimlich maneuver on her. She was found to have a dramatically low sodium level of 117 on admission. Urine is positive was markedly low at 62 with a urine sodium was also low at 7, with a low serum calcium. TSH and cortisol are recently normal. She was continued on salt tabs and repleted with potassium chloride as her potassium is 3.2 on admission, and her sodium level which will 9 PM was 117 was up to 126 at midnight and subsequently taiwo further to 133 this AM. Overnight she was polyuric with a urine output of 2.2 L during the signal maintainer. She is an awake and alert currently however is agitated and confused. She claims she wants to go home to [place]. She also mentions abdominal pain. Nephrology service was notified this morning of her admission. Allergies/Medications Allergies: Coded Allergies: Penicillins (Severe, CONVULSIONS 12/29/15) STATINS ("REAL BAD BODY ACHES, CAN'T MOVE" 12/29/15) Home Med List: Amlodipine Besylate 5 MG TABLET 5 MG PO DAILY HYPERTENSION Chlorpromazine HCl 10 MG TABLET 10 MG PO DAILY Mental health (Reported) Ergocalciferol (Vitamin D2) (Vitamin D2) 50,000 UNIT CAPSULE 1 CAP PO QFRI SUPPLEMENT (Reported) Levothyroxine Sodium 25 MCG TABLET 1.5 TAB PO DAILY HYPOTHYROIDISM (Reported) Losartan Potassium 50 MG TABLET 50 MG PO DAILY HYPERTENSION Memantine HCl (Namenda) 10 MG TABLET 1 TAB PO BID DEMENTIA (Reported) Sodium Chloride 1 GRAM TABLET 1 TAB PO BID LOW SODIUM . Current Medications: Current Medications Sig/Dennise Start time Last Medication Dose Route Stop Time Status Admin Chlorpromazine 10 MG ONCE ONE 10/240 NC 10/24 PO 10/24 2230 224 Desmopressin Acetate 2 MCG ONCE ONE 10/25 0800 DC 10/25 SC 10/25 0801 0803 Dextrose/Water 1,000 ML .Q2H 10/25 0730 r IV Dextrose/Water 1,000 ML ONCE ONE 10/25 0700 DC 10/25 IV 10/25 1339 0701 Enoxaparin Sodium 40 MG DAILY 10/25 0900 10/25 SC 0806 Levothyroxine Sodium 0.0375 MG DAILY AC 10/25 0700 AC 10/25 PO 0701 Magnesium Sulfate 1 GM Q2H 10/24 2245 DC 10/25 Dextrose/Water 100 ML IV 10/25 0244 0110 Memantine 10 MG BID 10/25 0900 AC 10/25 PO 0806 Potassium Chloride 60 MEQ ONCE ONE 10/25 0545 DC 10/25 PO 10/25 0546 0808 Potassium Chloride 10 MEQ Q1H 10/25 0400 DC 10/25 IV 10/25 0501 0556 Potassium Chloride 0 .STK-MED ONE 10/24 2241 DC PO Potassium Chloride 40 MEQ ONCE ONE 10/24 2229 NC 10/24 PO 10/24 223 2249 Quetiapine Fumarate 25 MG ONCE ONE 10/25 0215 DC / PO 10/25 0216 0248 Ramelteon 8 MG ONE TIME ONE 10/25 2345 AC PO 10/25 2346 Sodium Chloride 1,000 MG BID 10/24 2333 DC 10/24 PO 2356 Review of Systems Review of Systems: Gen: neg fever, chills, nightsweats, wt loss +increased thirst Skin: neg rash, pruritus Eye: neg visual changes, diplopia ENT: neg hearing changes, rhinitus CV: neg CP, SOB, PRADHAN, PND, orthopnea Pulm: neg cough, sputum, hemoptysis GI: + nausea, +vomiting,+ abdominal pain : neg dysuria, frequency, urgency, hematuria, foamy urine, nocturia Musculoskeletal: neg myalgias, arthralgias Neuro: neg weakness, numbness Psych: +chronic confusion, worse recently Heme: neg bruising, easy bleeding, clots Past History Travel History Traveled to [place] past 21 day No Medical History Neurological: Alzheimer's disease, BRAIN TUMORS EENT: NONE Cardiovascular: hyperlipidemia Respiratory: NONE Gastrointestinal: GERD Hepatic: NONE Renal: NONE Musculoskeletal: osteoarthritis, ?FX NOSE Psychiatric: insomnia Endocrine: hypothyroidism Blood Disorders: NONE Cancer(s): basal cell carcinoma, "3 BRAIN TUMORS" 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 Home Who Do You Live With? Grandson Services at Home: None Primary Language: Arabic Smoking Status: Former Smoker ETOH Use: occasional use Illicit Drug Use: denies illicit drug use Power of Software Development Manager/HCP? yes (Daughter Elisa ) Functional Ability ADLs Independent: toileting. Ambulation: independent IADLs Needs Assist: shopping, housework, finances, food prep, transportation, medication admin. Exam & Diagnostic Data Vital Signs and I&O Vital Signs Date Time Temp Pulse Resp B/P B/P Pulse O2 O2 Flow FiO2 Mean Ox Delivery Rate 10/25 0400 99 Room Air 10/25 0128 96 Nasal 2.0L Cannula 10/25 0056 98 Room Air / 0053 97.8 73 24 140/80 98 Room Air 10/24 2334 75 18 171/99 96 Room Air 10/24 2103 97.1 75 16 201/94 98 Room Air Intake & Output 10/25 1600 /05 0400 / 1600 / 0400 06/03 1600 06/03 0400 Intake Total 400 0 Output Total 2400 Balance -2000 0 Intake, IV 400 Intake, Oral 0 Output, Urine 2400 Patient 190 lb Weight Weight Reported by Patient Measurement Method Physical Exam: General: NAD, confused. agitated. has 1:1 sitter. demented HEENT: NC/AT. No icterus. Moist mucosa Neck: negative for SARA, JVD CV: RRR, no m/r/g Pulm: CTAB, no rales Abd: soft, NT/ND, negative renal bruits Lower Ext: neg edema or chronic venous changes Back: negative for CVA tenderness Neuro: neg tremor, asterixis Skin: no rash, jaundice : + parr catheter Results Pertinent Lab Results: Laboratory Tests 10/25 10/25 10/25 10/25 0820 0725 0712 0620 Chemistry Sodium (137 - 145 mmol/L) 133 L Urines Urine Osmolality (300 - 1000 MOSM/KG) 62 L Cancelled Ur Random Creatinine (mg/dL) Pending Ur Random Sodium (30 - 90 mmol/L) Pending Ur Random Potassium (mmol/L) Pending Urine Total Volume Cancelled Ur Sodium 24 Hour Cancelled Fraction Sodium Excret (<1% %) Pending Ur Potassium 24 Hour Cancelled 10/25 10/25 10/25 0500 0257 0003 Chemistry Sodium (137 - 145 mmol/L) Cancelled 127 L 126 L Potassium (3.5 - 5.1 mmol/L) Cancelled 2.8 *L Chloride (98 - 107 mmol/L) Cancelled 91 L Carbon Dioxide (22 - 30 mmol/L) Cancelled 23 Anion Gap (5 - 16) Cancelled 13 BUN (7 - 17 mg/dL) Cancelled 6 L Creatinine (0.5 - 1.0 mg/dL) Cancelled 0.7 Estimated GFR (>60 ml/min) > 60 Glucose (65 - 99 mg/dL) Cancelled 117 H Calcium (8.4 - 10.2 mg/dL) Cancelled 8.2 L Phosphorus (2.5 - 4.5 mg/dL) Cancelled 2.1 L Magnesium (1.6 - 2.3 mg/dL) Cancelled 2.4 H Total Bilirubin (0.2 - 1.3 mg/dL) Cancelled 1.5 H AST (14 - 36 U/L) Cancelled 20 ALT (9 - 52 U/L) Cancelled 28 Albumin (3.5 - 5.0 g/dL) Cancelled 3.0 L TSH (0.270 - 4.200 uIU/mL) 1.360 Free T4 (0.78 - 2.44 ng/dL) 1.29 Cortisol AM Sample (4.46 - 22.7 ug/dL) 13.3 Hematology CBC w Diff NO MAN DIFF REQ WBC (4.8 - 10.8 /CUMM) 6.1 RBC (4.20 - 5.40 /CUMM) 3.75 L Hgb (12.0 - 16.0 G/DL) 11.4 L Hct (37 - 47 %) 33.0 L MCV (81.0 - 99.0 FL) 88.0 MCH (27.0 - 31.0 PG) 30.3 MCHC (33.0 - 37.0 G/DL) 34.4 RDW (11.5 - 14.5 %) 13.6 Plt Count (130 - 400 /CUMM) 323 MPV (7.4 - 10.4 FL) 6.8 L Gran % (42.2 - 75.2 %) 80.4 H Lymphocytes % (20.5 - 51.1 %) 13.6 L Monocytes % (1.7 - 9.3 %) 5.2 Eosinophils % (0 - 5 %) 0.5 Basophils % (0.0 - 2.0 %) 0.3 Absolute Granulocytes (1.4 - 6.5 /CUMM) 4.9 Absolute Lymphocytes (1.2 - 3.4 /CUMM) 0.8 L Absolute Monocytes (0.10 - 0.60 /CUMM) 0.3 Absolute Eosinophils (0.0 - 0.7 /CUMM) 0 Absolute Basophils (0.0 - 0.2 /CUMM) 0 10/24 10/24 2245 2225 Urines Urine Color (YEL,AMB,STR) YEL Urine Clarity (CLEAR) CLEAR Urine pH (5.0 - 8.0) 6.5 Ur Specific [place] (1.001 - 1.035) <= 1.005 Urine Protein (NEG,<30 MG/DL) NEG Urine Ketones (NEG) TRACE H Urine Nitrite (NEG) NEG Urine Bilirubin (NEG) NEG Urine Urobilinogen (0.1 - 1.0 EU/dl) 0.2 Ur Leukocyte Esterase (NEG) SMALL H Ur Microscopic SEDIMENT EXAMINED Urine RBC (0 - 5 /HPF) RARE Urine WBC (0 - 2 /HPF) 1-3 H Urine Bacteria (NEG/NONE) FEW H Urine Hemoglobin (NEG) TRACE-INTACT Urine Osmolality (300 - 1000 MOSM/KG) 44 L Ur Random Creatinine (mg/dL) 8.5 Ur Random Sodium (30 - 90 mmol/L) 7 L Ur Random Potassium (mmol/L) 4.1 Fraction Sodium Excret (<1% %) 0.6 Urine Glucose (N MG/DL) NEG 10/25 2123 Chemistry Sodium (137 - 145 mmol/L) 117 *L Potassium (3.5 - 5.1 mmol/L) 3.2 L Chloride (98 - 107 mmol/L) 82 L Carbon Dioxide (22 - 30 mmol/L) 24 Anion Gap (5 - 16) 11 BUN (7 - 17 mg/dL) 7 Creatinine (0.5 - 1.0 mg/dL) 0.8 Estimated GFR (>60 ml/min) > 60 BUN/Creatinine Ratio (7 - 25 %) 8.8 Glucose (65 - 99 mg/dL) 88 Serum Osmolality (285 - 295 MOSM/KG) 243 L Calcium (8.4 - 10.2 mg/dL) 8.1 L Magnesium (1.6 - 2.3 mg/dL) 1.3 L Total Bilirubin (0.2 - 1.3 mg/dL) 1.5 H AST (14 - 36 U/L) 24 ALT (9 - 52 U/L) 34 Alkaline Phosphatase (<127 U/L) 86 Troponin I (< 0.11 ng/ml) 0.01 Total Protein (6.3 - 8.2 g/dL) 6.0 L Albumin (3.5 - 5.0 g/dL) 3.2 L Globulin (1.9 - 4.2 gm/dL) 2.8 Albumin/Globulin Ratio (1.1 - 2.2 %) 1.1 Hematology CBC w Diff NO MAN DIFF REQ WBC (4.8 - 10.8 /CUMM) 7.6 RBC (4.20 - 5.40 /CUMM) 3.96 L Hgb (12.0 - 16.0 G/DL) 12.0 Hct (37 - 47 %) 34.9 L MCV (81.0 - 99.0 FL) 88.1 MCH (27.0 - 31.0 PG) 30.4 MCHC (33.0 - 37.0 G/DL) 34.5 RDW (11.5 - 14.5 %) 13.5 Plt Count (130 - 400 /CUMM) 334 MPV (7.4 - 10.4 FL) 6.5 L Gran % (42.2 - 75.2 %) 82.1 H Lymphocytes % (20.5 - 51.1 %) 11.7 L Monocytes % (1.7 - 9.3 %) 5.2 Eosinophils % (0 - 5 %) 0.5 Basophils % (0.0 - 2.0 %) 0.5 Absolute Granulocytes (1.4 - 6.5 /CUMM) 6.2 Absolute Lymphocytes (1.2 - 3.4 /CUMM) 0.9 L Absolute Monocytes (0.10 - 0.60 /CUMM) 0.4 Absolute Eosinophils (0.0 - 0.7 /CUMM) 0 Absolute Basophils (0.0 - 0.2 /CUMM) 0 Toxicology Serum Alcohol (<10 MG/DL) < 10.0 Assessment/Plan Assessment/Recommendations Assessment: Hyponatremia: Presentation is consistent with primary polydipsia. Despite family members claim that she's been following a fluid restriction, I highly doubt that is the case that she likely has been sneaking additional fluid intake. Urinalysis was markedly low at 44, which is maximally dilute & implies a low ADH state, and the appropriate renal response to polydipsia. The typical treatment of polydipsia is strict/firm implementation of fluid restriction. Rapid overcorrection of hyponatremia: Her sodium was level taiwo by 16 mmol and only 9 hours which exceeds the recommended rate of correction. Salt tablets were discontinued this morning. She is being started on D5W, at a high rate of 500 mL per hour 2 hours and to be lowered to 200 mL per hour, and given a dose of DDAVP to decrease the free water aquaresis. Goal sodium level for 9 PM tonight is 123-125, which would be a rate of rise of sodium level of 6-8 mmol in the first 24 hours. Goal sodium level by tomorrow morning is approximately 125- 128, and goal sodium level by tomorrow night around 9 PM is approximately, 129- 131 which should be a rate of rise of 12-14/48 hours. Extremely close monitoring is warranted with every 2 hour labs at this point in time. She is at high risk for central pontine myelolysis given her age, malnutrition, history of alcohol abuse, and given the rapid rate of sodium level during the first 9 hours of admission. Recommendations: D5W 500 mL per hour 2 hours followed by 200 mL per hour. This treatment will need to be adjusted based on laboratory trend. DDAVP 2 mcg subcutaneous 1 now, this can be repeated every 6 hours on an as- needed basis for polyuria and or too high of a sodium level for the desired target Discussed with housestaff Thank you for the consultation. Piotr Mesa MD
[2017-10-26] VITALS: BP 170/100
--- NOTE | 2017-10-26 07:19 | PN- Resident CRCU ---
Adriano EVANS,Rafy 10/26/17 0718: Subjective HPI/CRCU Issues: Hyponatremia, also be due to polydipsia; Overcorrection, now stabilizing 24 Hour Events: I followed up and examined the patient today. She appears drowsy/sleep eating, comfortably lying in her bed. Not providing any review of system or complaints. Overnight, her blood pressure has remained high, this morning it's 150/80 manually. Overnight, her sodium was repeatedly in 120s, thus IV fluid was stopped. The patient currently is not on any fluid restriction, but has not had any food/ fluids yet this AM. Objective Vital Signs & I&O Last 8 Hrs of Vitals and I&O: Vital Signs Date Time Temp Pulse Resp B/P B/P Pulse O2 O2 Flow FiO2 Mean Ox Delivery Rate 10/26 0730 97.6 62 19 156/86 97 Room Air 10/26 0400 97 Room Air 10/26 0000 98.3 69 18 170/100 95 Room Air 10/26 0000 95 Room Air 10/25 1600 98.4 68 20 98 Room Air Intake & Output 10/26 1600 10/26 0800 10/26 0000 Intake Total 200 420 Output Total 1300 470 Balance -1100 -50 Intake, IV 0 300 Intake, Oral 200 120 Number 0 Bowel Movements Output, Urine 1300 470 Exam General Appearance: well developed/nourished, no apparent distress, comfortable, sleepy Head: atraumatic, normal appearance Ears, Nose, Throat: normal pharynx, hearing grossly normal Neck: normal inspection, supple, full range of motion Respiratory: d/l decreased breath sound Cardiovascular: regular rate/rhythm Gastrointestinal: soft, non-tender, increased bowel sound heard Extremities: normal inspection, normal capillary refill, normal range of motion, no edema Cranial Nerves: unable to assess due to pt's condition Skin: intact, normal color, warm/dry Skin Temp/Moisture Exam: Warm/Dry Sepsis Skin Exam (color): Normal for Ethnicity Sepsis Peripheral Pulse Location: Radial Sepsis Peripheral Pulse Exam: Normal Sepsis Cap Refill Exam: <2 Sec Harley Site: urethral Still Needed? Yes Current Medications: Current Medications Sig/Dennise Start time Last Medication Dose Route Stop Time Status Admin Amlodipine Besylate 5 MG DAILY 10/25 1528 AC 10/25 PO 1550 Amlodipine Besylate 5 MG DAILY 10/25 1254 DC PO Dextrose/Water 1,000 ML ONCE ONE 10/25 1500 DC 06/05 IV / 0059 1551 Dextrose/Water 1,000 ML .Q2H 10/25 1100 DC 06/05 IV 06/05 1259 1100 Dextrose/Water 1,000 ML ONCE ONE 10/25 0915 DC 06/05 IV /05 1114 0915 Enoxaparin Sodium 40 MG DAILY 10/25 0900 AC 06 SC 0806 Hydralazine HCl 2.5 MG ONCE ONE 10/25 1530 CAN IV 10/25 1531 Levothyroxine Sodium 0.0375 MG DAILY AC 10/25 0700 AC 10/26 PO 0715 Losartan Potassium 50 MG DAILY 10/25 1528 AC 10/25 PO 1550 Memantine 10 MG BID 10/25 0900 AC 10/25 PO 2012 Omeprazole 20 MG DAILY AC 10/25 1042 AC 10/26 PO 0715 Potassium Chloride 40 MEQ ONCE ONE 10/26 0015 DC / PO 10/26 0016 0026 Potassium Chloride 20 MEQ ONCE ONE 10/25 1830 DC / PO 10/25 1832011 Potassium Chloride 10 MEQ .STK-MED ONE 10/25 1754 DC IV 10/25 1755 Quetiapine Fumarate 25 MG ONCE ONE 10/25 2100 DC 10/26 PO / 2101 0000 Ramelteon 8 MG ONE TIME ONE 10/25 2345 CAN PO 10/25 2346 Impression/Plan Impression/Problem List Impression: 77-year-old female with past medical history of dementia, brain tumors- schwannoma, meningioma, hypertension, hyperlipidemia, chronic hyponatremia was treated for acute on chronic symptomatic hyponatremia and is being managed in the ICU. Her current issues are as follows: Patient is currently being treated in the ICU for the following issues: RESPIRATORY No issues INFECTIOUS DISEASE No issues CARDIOLOGY No issues HEMATOLOGY No issues METABOLIC No issues ALIMENTARY No issues NEPHROLOGY # Symptomatic Hyponatremia, acute on chronic, with rapid correction Patient initially presented with symptomatic sodium level of 117, the levels of which got corrected rapidly to 133 with fluid restriction, and continued her home dose of sodium supplement, following which she was started on dextrose IV fluids and fluid restriction relaxed, to revert the overcorrection. Her levels steadied at 122-123 overnight in IV fluids were stopped. -Plan to restart her diet with 1200 mL of fluid restriction -No more dextrose IV fluids or salt tablets either. -Check BEP every 4 hours for now, and after 1 PM will reevaluate if this can be done less frequently, and maybe even be transferred to general medical floor for further care. NEUROLOGY No issues HOUSEKEEPING Diet: Heart healthy diet with fluid restriction 1200 ml/24 hrs DVT prophylaxis: SQ Lovenox Code status: Full code IV access: Peripheral Case management issues:- Family update: I spoke with the patient's daughter Elisa at length over phone about the patient's condition and plan of care. She updated me with patient's recent labs, and we discussed about possible causes of her low sodium including medications, fluid overload (drinking), and ongoing search for the cause while we continue to treat her. She was also explained that the patient's sodium level has been stable in 120s as of now. Problem List: 1. Hyponatremia Pain Ratin Pain Location: - Pain Goal: Pain 4 or less Pain Plan: prn Tomorrow's Labs & Rationales: BEP q4h for now, ICU lab bundle in AM Plan DVT/Prophylaxis: mechanical, pharmacological Yoan Álvarez MD 10/26/17 1043: Attending MD Review Statement Attending Sign Off Attending Cosign Statement: I have: examined this patient, reviewed avalbl EMR data, personally reviewd images, discussd w/resident/PA/CHARGER TESTER, discussed mgmt plan w/serena, discussed mgmt plan w/CM, discussed mgmt plan w/pt, agreed w/resident/PA/CHARGER TESTER, amended to note. Other Findings: Yoan Angela M.D. have examined this patient, reviewed available EMR data, personally reviewed images, discussed with resident/PA/CHARGER TESTER, discussed management plan with housestaff and nursing staff, discussed managment plan all of healthcare providers, discussed management plan with patient and/or family, agreed with resident/PA/CHARGER TESTER. The past history and parts of the chart have been autopopulated. Impression 77-year-old woman with hyponatremia that is mostly chronic however likely related to poor sodium intake and psychogenic polydipsia. Quick correction of sodium. Plan -Nephrology consultation is appreciated -s/p DDAVP, D5W -will pause fluids for now, f/u nephrology recommendations -q4 blood work -stable mental status at this time DVT prophylaxis at all times TTS 35 min once stabilized correction of sodium will DG to GM
[2017-10-26 07:30] VITALS: BP 156/86
[2017-10-26 08:21] LABS: ABSOLUTE BASOPHIL COUNT 0 /CUMM (0.0-0.2); ABSOLUTE EOSINOPHIL COUNT 0.1 /CUMM (0.0-0.7); ABSOLUTE GRANULOCYTE CT 4.6 /CUMM (1.4-6.5); ABSOLUTE LYMPH COUNT 0.9 /CUMM (1.2-3.4); ABSOLUTE MONOCYTE COUNT 0.4 /CUMM (0.10-0.60); BASOPHIL % 0.4 % (0.0-2.0); GRANULOCYTE % 76.4 % (42.2-75.2); HEMATOCRIT 33.2 % (37-47); MEAN CORPUSCULAR HGB 30.6 PG (27.0-31.0); MEAN CORPUSCULAR HGB CONC 34.9 G/DL (33.0-37.0); MEAN CORPUSCULAR VOLUME 87.6 FL (81.0-99.0); MEAN PLATELET VOLUME 7.2 FL (7.4-10.4); PLATELET COUNT 321 /CUMM (130-400); RBC DISTRIBUTION WIDTH 13.8 % (11.5-14.5); RED BLOOD CELL CT 3.79 /CUMM (4.20-5.40)
--- NOTE | 2017-10-26 10:51 | PN- Nephrology ---
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 Despite family members claim that she's been following a fluid restriction, I highly doubt that is the case that she likely has been sneaking additional fluid intake. Urinalysis was markedly low at 44, which is maximally dilute & implies a low ADH state, and the appropriate renal response to polydipsia. The typical treatment of polydipsia is strict/firm implementation of fluid restriction. Rapid overcorrection of hyponatremia: This was addressed yesterday & she was treated with D5W (which was stopped) & DDAVP x1. Suggestion: Fluid restrict 1200 cc/day no need salt tablets space out BMPs to q4 for now, but can be spaced out further soon if rate of rise appropriate allow sodium level to gradually rise over the next 24 hrs. Goal sodium level high 120s tonight and low 130s tomorrow Discussed with house-staff Subjective Subjective: fatigued today resting comfortably was treated for rapid overcorrection of hyponatremia yesterday now off of D5W Review of Systems: unable to reliably obtain due to dementia Objective Vital Signs and I&Os Vital Signs Date Time Temp Pulse Resp B/P B/P Pulse O2 O2 Flow FiO2 Mean Ox Delivery Rate 10/26 0954 156/86 10/26 0954 156/86 10/26 0730 97.6 62 19 156/86 97 Room Air / 0400 97 Room Air 06/06 0000 98.3 69 18 170/100 95 Room Air 06/06 0000 95 Room Air 06/05 1600 98.4 68 20 98 Room Air Intake & Output 10/26 1600 10/26 0400 10/25 1600 10/25 0400 10/24 1600 / 0400 Intake Total 043 462 8203 0 Output Total 2018 712 0763 Balance -1100 -50 50 0 Intake, IV 0 300 2600 Intake, Oral 200 120 400 0 Number 0 0 Bowel Movements Output, Urine 2413 438 2059 Patient 189 lb 190 lb 190 lb Weight Weight Reported by Patient Measurement Method Physical Exam: NAD, lethargic CTAB S1 S2 soft NT No edema no twitching/myoclonic jerks +parr Current Medications: Current Medications Sig/Dennise Start time Last Medication Dose Route Stop Time Status Admin Amlodipine Besylate 5 MG DAILY 10/25 1528 AC 10/26 PO 0954 Amlodipine Besylate 5 MG DAILY 10/25 1254 DC PO Dextrose/Water 1,000 ML ONCE ONE 10/25 1500 DC 0605 IV 10/26 0059 1551 Dextrose/Water 1,000 ML .Q2H 10/25 1100 DC 06/05 IV 06/ 1259 1100 Dextrose/Water 1,000 ML ONCE ONE 10/25 0915 DC 05 IV / 1114 0915 Enoxaparin Sodium 40 MG DAILY 10/25 0900 AC 10/26 SC 0954 Hydralazine HCl 2.5 MG ONCE ONE 10/25 1530 CAN IV 10/25 1531 Levothyroxine Sodium 0.0375 MG DAILY AC 10/25 0700 AC 10/26 PO 0715 Losartan Potassium 50 MG DAILY 10/25 1528 AC 10/26 PO 0954 Memantine 10 MG BID 10/25 0900 AC 10/26 PO 0954 Omeprazole 20 MG DAILY AC 10/25 1042 AC 10/26 PO 0715 Potassium Chloride 40 MEQ ONCE ONE 10/26 0015 DC 10/26 PO 10/26 0016 0026 Potassium Chloride 20 MEQ ONCE ONE 10/25 1830 DC / PO 10/25 183 2012 Potassium Chloride 10 MEQ .STK-MED ONE 10/25 1754 DC IV 10/25 1755 Quetiapine Fumarate 25 MG ONCE ONE 10/25 2100 DC 10/26 PO 10/25 2101 0000 Results Pertinent Lab Results: Laboratory Tests 10/26 10/26 06 0940 0510 0030 Chemistry Sodium (137 - 145 mmol/L) Pending 124 L 123 L Potassium (3.5 - 5.1 mmol/L) Pending 3.7 3.4 L Chloride (98 - 107 mmol/L) Pending 91 L 92 L Carbon Dioxide (22 - 30 mmol/L) Pending 25 25 Anion Gap (5 - 16) Pending 8 6 BUN (7 - 17 mg/dL) Pending 3 L 3 L Creatinine (0.5 - 1.0 mg/dL) Pending 0.7 0.6 Estimated GFR (>60 ml/min) > 60 > 60 BUN/Creatinine Ratio (7 - 25 %) Pending 5.0 L Glucose (65 - 99 mg/dL) 78 Calcium (8.4 - 10.2 mg/dL) 8.3 L Phosphorus (2.5 - 4.5 mg/dL) 3.1 Magnesium (1.6 - 2.3 mg/dL) 1.9 Total Bilirubin (0.2 - 1.3 mg/dL) 0.8 AST (14 - 36 U/L) 16 ALT (9 - 52 U/L) 28 Albumin (3.5 - 5.0 g/dL) 2.9 L Hematology CBC w Diff NO MAN DIFF REQ WBC (4.8 - 10.8 /CUMM) 6.0 RBC (4.20 - 5.40 /CUMM) 3.79 L Hgb (12.0 - 16.0 G/DL) 11.6 L Hct (37 - 47 %) 33.2 L MCV (81.0 - 99.0 FL) 87.6 MCH (27.0 - 31.0 PG) 30.6 MCHC (33.0 - 37.0 G/DL) 34.9 RDW (11.5 - 14.5 %) 13.8 Plt Count (130 - 400 /CUMM) 321 MPV (7.4 - 10.4 FL) 7.2 L Gran % (42.2 - 75.2 %) 76.4 H Lymphocytes % (20.5 - 51.1 %) 15.6 L Monocytes % (1.7 - 9.3 %) 6.6 Eosinophils % (0 - 5 %) 1.0 Basophils % (0.0 - 2.0 %) 0.4 Absolute Granulocytes (1.4 - 6.5 /CUMM) 4.6 Absolute Lymphocytes (1.2 - 3.4 /CUMM) 0.9 L Absolute Monocytes (0.10 - 0.60 /CUMM) 0.4 Absolute Eosinophils (0.0 - 0.7 /CUMM) 0.1 Absolute Basophils (0.0 - 0.2 /CUMM) 0 / 0610/25 2110 1659 1421 1345 1143 Chemistry Sodium (137 - 145 mmol/L) 122 L 124 L 126 L Cancelled 126 L Potassium (3.5 - 5.1 mmol/L) 3.3 L 3.3 L 3.8 Cancelled 3.9 Chloride (98 - 107 mmol/L) 90 L 91 L 93 L Cancelled 93 L Carbon Dioxide (22 - 30 mmol/L) 23 23 25 Cancelled 26 Anion Gap (5 - 16) 9 10 7 Cancelled 8 BUN (7 - 17 mg/dL) 3 L 4 L 4 L Cancelled 4 L Creatinine (0.5 - 1.0 mg/dL) 0.6 0.7 0.7 Cancelled 0.7 Estimated GFR (>60 ml/min) > 60 > 60 > 60 > 60 BUN/Creatinine Ratio (7 - 25 %) 5.0 L 5.7 L 5.7 L Cancelled 5.7 L 10/25 10/25 10/25 10/25 1100 0940 0900 0820 Chemistry Sodium (137 - 145 mmol/L) Cancelled 132 L Potassium (3.5 - 5.1 mmol/L) Cancelled 3.7 Chloride (98 - 107 mmol/L) Cancelled 95 L Carbon Dioxide (22 - 30 mmol/L) Cancelled 26 Anion Gap (5 - 16) Cancelled 11 BUN (7 - 17 mg/dL) Cancelled 4 L Creatinine (0.5 - 1.0 mg/dL) Cancelled 0.7 Estimated GFR (>60 ml/min) > 60 BUN/Creatinine Ratio (7 - 25 %) Cancelled 5.7 L Urines Urine Osmolality (300 - 1000 MOSM/KG) 62 L Ur Random Creatinine (mg/dL) Cancelled 13.0 Ur Random Sodium (30 - 90 mmol/L) Cancelled 11 L Ur Random Potassium (mmol/L) Cancelled 3.9 Fraction Sodium Excret (<1% %) Cancelled 0.4 10/25 10/25 10/25 10/25 0725 0712 0620 0500 Chemistry Sodium (137 - 145 mmol/L) 133 L Cancelled Potassium Cancelled Chloride Cancelled Carbon Dioxide Cancelled Anion Gap Cancelled BUN Cancelled Creatinine Cancelled Glucose Cancelled Calcium Cancelled Phosphorus Cancelled Magnesium Cancelled Total Bilirubin Cancelled AST Cancelled ALT Cancelled Albumin Cancelled Urines Urine Osmolality Cancelled Urine Total Volume Cancelled Ur Sodium 24 Hour Cancelled Ur Potassium 24 Hour Cancelled 10/25 10/25 0257 0003 Chemistry Sodium (137 - 145 mmol/L) 127 L 126 L Potassium (3.5 - 5.1 mmol/L) 2.8 *L Chloride (98 - 107 mmol/L) 91 L Carbon Dioxide (22 - 30 mmol/L) 23 Anion Gap (5 - 16) 13 BUN (7 - 17 mg/dL) 6 L Creatinine (0.5 - 1.0 mg/dL) 0.7 Estimated GFR (>60 ml/min) > 60 Glucose (65 - 99 mg/dL) 117 H Calcium (8.4 - 10.2 mg/dL) 8.2 L Phosphorus (2.5 - 4.5 mg/dL) 2.1 L Magnesium (1.6 - 2.3 mg/dL) 2.4 H Total Bilirubin (0.2 - 1.3 mg/dL) 1.5 H AST (14 - 36 U/L) 20 ALT (9 - 52 U/L) 28 Albumin (3.5 - 5.0 g/dL) 3.0 L TSH (0.270 - 4.200 uIU/mL) 1.360 Free T4 (0.78 - 2.44 ng/dL) 1.29 Cortisol AM Sample (4.46 - 22.7 ug/dL) 13.3 Hematology CBC w Diff NO MAN DIFF REQ WBC (4.8 - 10.8 /CUMM) 6.1 RBC (4.20 - 5.40 /CUMM) 3.75 L Hgb (12.0 - 16.0 G/DL) 11.4 L Hct (37 - 47 %) 33.0 L MCV (81.0 - 99.0 FL) 88.0 MCH (27.0 - 31.0 PG) 30.3 MCHC (33.0 - 37.0 G/DL) 34.4 RDW (11.5 - 14.5 %) 13.6 Plt Count (130 - 400 /CUMM) 323 MPV (7.4 - 10.4 FL) 6.8 L Gran % (42.2 - 75.2 %) 80.4 H Lymphocytes % (20.5 - 51.1 %) 13.6 L Monocytes % (1.7 - 9.3 %) 5.2 Eosinophils % (0 - 5 %) 0.5 Basophils % (0.0 - 2.0 %) 0.3 Absolute Granulocytes (1.4 - 6.5 /CUMM) 4.9 Absolute Lymphocytes (1.2 - 3.4 /CUMM) 0.8 L Absolute Monocytes (0.10 - 0.60 /CUMM) 0.3 Absolute Eosinophils (0.0 - 0.7 /CUMM) 0 Absolute Basophils (0.0 - 0.2 /CUMM) 0 06/04 06/04 2245 2225 Urines Urine Color (YEL,AMB,STR) YEL Urine Clarity (CLEAR) CLEAR Urine pH (5.0 - 8.0) 6.5 Ur Specific [place] (1.001 - 1.035) <= 1.005 Urine Protein (NEG,<30 MG/DL) NEG Urine Ketones (NEG) TRACE H Urine Nitrite (NEG) NEG Urine Bilirubin (NEG) NEG Urine Urobilinogen (0.1 - 1.0 EU/dl) 0.2 Ur Leukocyte Esterase (NEG) SMALL H Ur Microscopic SEDIMENT EXAMINED Urine RBC (0 - 5 /HPF) RARE Urine WBC (0 - 2 /HPF) 1-3 H Urine Bacteria (NEG/NONE) FEW H Urine Hemoglobin (NEG) TRACE-INTACT Urine Osmolality (300 - 1000 MOSM/KG) 44 L Ur Random Creatinine (mg/dL) 8.5 Ur Random Sodium (30 - 90 mmol/L) 7 L Ur Random Potassium (mmol/L) 4.1 Fraction Sodium Excret (<1% %) 0.6 Urine Glucose (N MG/DL) NEG 10/244 Chemistry Sodium (137 - 145 mmol/L) 117 *L Potassium (3.5 - 5.1 mmol/L) 3.2 L Chloride (98 - 107 mmol/L) 82 L Carbon Dioxide (22 - 30 mmol/L) 24 Anion Gap (5 - 16) 11 BUN (7 - 17 mg/dL) 7 Creatinine (0.5 - 1.0 mg/dL) 0.8 Estimated GFR (>60 ml/min) > 60 BUN/Creatinine Ratio (7 - 25 %) 8.8 Glucose (65 - 99 mg/dL) 88 Serum Osmolality (285 - 295 MOSM/KG) 243 L Calcium (8.4 - 10.2 mg/dL) 8.1 L Magnesium (1.6 - 2.3 mg/dL) 1.3 L Total Bilirubin (0.2 - 1.3 mg/dL) 1.5 H AST (14 - 36 U/L) 24 ALT (9 - 52 U/L) 34 Alkaline Phosphatase (<127 U/L) 86 Troponin I (< 0.11 ng/ml) 0.01 Total Protein (6.3 - 8.2 g/dL) 6.0 L Albumin (3.5 - 5.0 g/dL) 3.2 L Globulin (1.9 - 4.2 gm/dL) 2.8 Albumin/Globulin Ratio (1.1 - 2.2 %) 1.1 Hematology CBC w Diff NO MAN DIFF REQ WBC (4.8 - 10.8 /CUMM) 7.6 RBC (4.20 - 5.40 /CUMM) 3.96 L Hgb (12.0 - 16.0 G/DL) 12.0 Hct (37 - 47 %) 34.9 L MCV (81.0 - 99.0 FL) 88.1 MCH (27.0 - 31.0 PG) 30.4 MCHC (33.0 - 37.0 G/DL) 34.5 RDW (11.5 - 14.5 %) 13.5 Plt Count (130 - 400 /CUMM) 334 MPV (7.4 - 10.4 FL) 6.5 L Gran % (42.2 - 75.2 %) 82.1 H Lymphocytes % (20.5 - 51.1 %) 11.7 L Monocytes % (1.7 - 9.3 %) 5.2 Eosinophils % (0 - 5 %) 0.5 Basophils % (0.0 - 2.0 %) 0.5 Absolute Granulocytes (1.4 - 6.5 /CUMM) 6.2 Absolute Lymphocytes (1.2 - 3.4 /CUMM) 0.9 L Absolute Monocytes (0.10 - 0.60 /CUMM) 0.4 Absolute Eosinophils (0.0 - 0.7 /CUMM) 0 Absolute Basophils (0.0 - 0.2 /CUMM) 0 Toxicology Serum Alcohol (<10 MG/DL) < 10.0
[2017-10-26 16:00] VITALS: BP 148/74
--- NOTE | 2017-10-26 21:10 | RADIOLOGY REPORT ---
EXAMINATION: XR PORTABLE ABDOMEN CLINICAL INFORMATION: Constipation. Abdominal distention. COMPARISON: None TECHNIQUE: AP view of the abdomen. FINDINGS: The right side of the abdomen is excluded from the view. There is no dilated bowel loop. Nonobstructive bowel pattern. Small collection of stool in the central pelvis. There are no radiopaque urinary calculi. There is multilevel degenerative spondylosis of the spine. IMPRESSION: Small volume of stool seen in the pelvis. Nonobstructive bowel pattern.
[2017-10-27] VITALS: BP 138/70
--- NOTE | 2017-10-27 06:52 | PN- Resident CRCU ---
Adriano EVANS,Rafy 10/27/17 0652: Subjective HPI/CRCU Issues: Hyponatremia, 2/2 ?polydipsia; Initially overcorrected, now stabilizing 24 Hour Events: I followed up and examined the patient today. She is resting comfortably in bed , does not appear to be in distress, and given her medical condition, she does not offer any complaints. Her mentation has waxed and waned in the past 24 hours, at times very calm, and at times very disoriented with agitation, yelling , and risk of pulling out her lines. She has a continous sitter currently and no restraints. Her daughter was updated by me yesterday afternoon. VSS. No nursing issues reported to me otherwise. Objective Vital Signs & I&O Last 8 Hrs of Vitals and I&O: Vital Signs Date Time Temp Pulse Resp B/P B/P Pulse O2 O2 Flow FiO2 Mean Ox Delivery Rate 10/27 0400 99 Room Air / 0000 96 Room Air / 0000 98.2 74 18 138/70 96 Room Air 10/26 2000 100 Room Air 10/26 1600 96 Room Air 10/26 1600 99.2 96 18 148/74 96 Room Air 10/26 0954 156/86 10/26 0954 156/86 10/26 0730 97.6 62 19 156/86 97 Room Air Intake & Output 10/27 0800 /07 0000 10/26 1600 Intake Total 100 460 300 Output Total 700 1250 500 Balance -600 -790 -200 Intake, IV 0 Intake, Oral 100 460 300 Number 0 Bowel Movements Output, 250 Emesis Output, Urine 700 1000 500 Patient 85.729 kg Weight Weight Bed scale Measurement Method Exam General Appearance: well developed/nourished, no apparent distress, awake, comfortable Other Physical Findings: Head: atraumatic, normal appearance Ears, Nose, Throat: normal pharynx, hearing grossly normal Neck: normal inspection, supple, full range of motion Respiratory: b/l decreased breath sound, but not in distress Cardiovascular: regular rate/rhythm Gastrointestinal: soft, non-tender, increased bowel sound heard Extremities: normal inspection, normal capillary refill, normal range of motion, no edema Cranial Nerves: unable to assess due to pt's condition Skin: intact, normal color, warm/dry Skin Temp/Moisture Exam: Warm/Dry Harley in situ Harley Site: urethral Still Needed? Yes IV Drips IV Drips: none Nutrition Nutrition: P.O. diet Current Medications: Current Medications Sig/Dennise Start time Last Medication Dose Route Stop Time Status Admin Amlodipine Besylate 5 MG DAILY 10/25 1528 AC 10/26 PO 0954 Enoxaparin Sodium 40 MG DAILY 10/25 0900 AC 10/26 SC 0954 Levothyroxine Sodium 0.0375 MG DAILY AC 10/25 0700 AC 10/27 PO 0611 Losartan Potassium 50 MG DAILY 10/25 1528 AC 10/26 PO 0954 Memantine 10 MG BID 10/25 0900 AC 10/26 PO 2154 Omeprazole 20 MG DAILY AC 10/25 1042 AC 10/27 PO 0611 Ondansetron HCl 4 MG Q6P PRN 10/26 2030 AC 10/26 IV 2019 Potassium Chloride 40 MEQ ONCE ONE 10/26 2330 DC 10/26 PO 10/26 2331 2341 Quetiapine Fumarate 25 MG ONCE ONE 10/26 2215 DC 10/26 PO 10/26 2216 2207 Quetiapine Fumarate 25 MG ONCE ONE 10/26 1400 DC 10/26 PO 10/26 1401 1414 Impression/Plan Impression/Problem List Impression: 77-year-old female with past medical history of dementia, brain tumors- schwannoma, meningioma, hypertension, hyperlipidemia, chronic hyponatremia was treated for acute on chronic symptomatic hyponatremia and is being managed in the ICU. Her current issues are as follows: Patient is currently being treated in the ICU for the following issues: RESPIRATORY No issues INFECTIOUS DISEASE No issues CARDIOLOGY No issues HEMATOLOGY No issues METABOLIC No issues ALIMENTARY No issues NEPHROLOGY # Symptomatic Hyponatremia, acute on chronic, with rapid correction Patient initially presented with symptomatic sodium level of 117, the levels of which got corrected rapidly to 133 with fluid restriction, and continued her home dose of sodium supplement, following which she was started on dextrose IV fluids and fluid restriction relaxed, to revert the overcorrection. Her levels are now trending up slowly and safelt, latest being 129. -Continue diet with 1200 mL of fluid restriction -Continue to hold her home dose of salt tablets -Checking BEP every 6 hours for now (was previously q4h), and maybe even be transferred to general medical floor for further care. NEUROLOGY No issues PSYCHIATRY Patient's mentation has been waxing and waning. She has received Seroquel daily, but once her sodium levels have normalized, probably would benefit from psychiatry consult as she is off her psych meds currently (thorazine). HOUSEKEEPING Diet: Heart healthy diet with fluid restriction 1200 ml/24 hrs DVT prophylaxis: SQ Lovenox Code status: Full code IV access: Peripheral Case management issues:- Family update: Updated the daughter today again. She mentioned that the patient was on Lasix 20 mg PO once every three days as well and the last dose was last week. I discussed that with Benefits Consulting Analyst as well. Problem List: 1. Hyponatremia 2. Dementia Pain Ratin Pain Location: - Pain Goal: Pain 4 or less Pain Plan: prn Tomorrow's Labs & Rationales: CBC, BEP Plan DVT/Prophylaxis: mechanical, pharmacological Yoan Álvarez MD 10/27/17 1000: Attending MD Review Statement Attending Sign Off Attending Cosign Statement: I have: examined this patient, reviewed avalbl EMR data, personally reviewd images, discussd w/resident/PA/ESCROW CLOSER, discussed mgmt plan w/serena, discussed mgmt plan w/CM, discussed mgmt plan w/pt, agreed w/resident/PA/ESCROW CLOSER, amended to note. Other Findings: IYoan M.D. have examined this patient, reviewed available EMR data, personally reviewed images, discussed with resident/PA/ESCROW CLOSER, discussed management plan with housestaff and nursing staff, discussed managment plan all of healthcare providers, discussed management plan with patient and/or family, agreed with resident/PA/ESCROW CLOSER. The past history and parts of the chart have been autopopulated. Impression 77-year-old woman with hyponatremia that is mostly chronic however likely related to poor sodium intake and psychogenic polydipsia. Quick correction of sodium. Plan -Nephrology consultation is appreciated, f/u recommendations -if next sodium stable will downgrade to GM -continue current meds for htn and dementia meds DVT prophylaxis at all times TTS 35 min
[2017-10-27 08:00] VITALS: BP 120/66
--- NOTE | 2017-10-27 12:08 | PN- Nephrology ---
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 Despite family members claim that she's been following a fluid restriction, I highly doubt that is the case that she likely has been sneaking additional fluid intake. Urinalysis was markedly low at 44, which is maximally dilute & implies a low ADH state, and the appropriate renal response to polydipsia. The typical treatment of polydipsia is strict/firm implementation of fluid restriction. Rapid overcorrection of hyponatremia: This was addressed on tuesday & she was treated with D5W (which was stopped) & DDAVP x1. Sodium level currently at desired target Suggestion: Fluid restrict 1000 cc/day no need salt tablets space out BMPs to qam Subjective Subjective: No acute events slept well overnight in good spirits today; seems less agitated confused but seems to be at baseline mental status Na+ improved to 129 with fluid restriction Review of Systems: no fever/chills no sob/chest pain Objective Vital Signs and I&Os Vital Signs Date Time Temp Pulse Resp B/P B/P Pulse O2 O2 Flow FiO2 Mean Ox Delivery Rate 10/27 1030 65 124/60 10/27 1030 66 124/60 10/27 0400 99 Room Air 06/ 0000 96 Room Air 06/07 0000 98.2 74 18 138/70 96 Room Air 06/06 2000 100 Room Air / 1600 96 Room Air / 1600 99.2 96 18 148/74 96 Room Air Intake & Output 10/27 1600 / 0400 / 1600 / 0400 / 1600 / 0400 Intake Total 100 460 641 047 6192 0 Output Total 700 1250 7234 648 8458 Balance -600 -790 -1300 -50 50 0 Intake, IV 0 0 300 2600 Intake, Oral 100 460 500 120 400 0 Number 0 0 0 Bowel Movements Output, 250 Emesis Output, Urine 700 [phone] 5662 Patient 189 lb 190 lb 190 lb Weight Weight Bed scale Reported by Patient Measurement Method Physical Exam: NAD, pleasantly confused CTAB S1 S2 soft NT no edema Current Medications: Current Medications Sig/Dennise Start time Last Medication Dose Route Stop Time Status Admin Amlodipine Besylate 5 MG DAILY 10/25 1528 AC 10/27 PO 1030 Enoxaparin Sodium 40 MG DAILY 10/25 0900 AC 10/27 SC 1030 Levothyroxine Sodium 0.0375 MG DAILY AC 10/25 0700 AC 10/27 PO 0611 Losartan Potassium 50 MG DAILY 10/25 1528 AC 10/27 PO 1030 Magnesium Oxide 400 MG ONE ONE 10/27 0715 DC 10/27 PO 10/27 0716 1031 Memantine 10 MG BID 10/25 0900 AC 10/27 PO 1029 Omeprazole 20 MG DAILY AC 10/25 1042 AC 10/27 PO 0611 Ondansetron HCl 4 MG Q6P PRN 10/26 2030 AC 10/26 IV 2019 Polyethylene Glycol 17 GM DAILY PRN 10/27 0815 AC 10/27 PO 1030 Potassium Chloride 40 MEQ ONCE ONE 10/26 2330 DC 10/26 PO 10/26 2331 2341 Quetiapine Fumarate 25 MG ONCE ONE 10/26 2215 DC 10/26 PO 10/26 2216 2207 Quetiapine Fumarate 25 MG ONCE ONE 10/26 1400 DC 10/26 PO 10/26 1401 1414 Results Pertinent Lab Results: Laboratory Tests 10/27 10/27 10/26 10/26 10/26 1125 0350 2146 1750 1257 Chemistry Sodium (137 - 145 mmol/L) Pending 129 L 127 L 126 L 122 L Potassium (3.5 - 5.1 mmol/L) Pending 4.4 3.3 L 3.8 3.9 Chloride (98 - 107 mmol/L) Pending 99 94 L 90 L 91 L Carbon Dioxide (22 - 30 mmol/L) Pending 22 24 25 24 Anion Gap (5 - 16) Pending 8 8 12 8 BUN (7 - 17 mg/dL) Pending 3 L 3 L 2 L 2 L Creatinine (0.5 - 1.0 mg/dL) Pending 0.7 0.7 0.8 0.7 Estimated GFR (>60 ml/min) > 60 > 60 > 60 > 60 BUN/Creatinine Ratio (7 - 25 %) Pending 4.3 L 2.5 L 2.9 L Glucose (65 - 99 mg/dL) 90 Calcium (8.4 - 10.2 mg/dL) 7.8 L Phosphorus (2.5 - 4.5 mg/dL) 3.7 Magnesium (1.6 - 2.3 mg/dL) 1.8 Total Bilirubin (0.2 - 1.3 mg/dL) 0.9 AST (14 - 36 U/L) 23 ALT (9 - 52 U/L) 23 Albumin (3.5 - 5.0 g/dL) 2.6 L 10/26 10/26 10/26 0940 0510 0220 Chemistry Sodium (137 - 145 mmol/L) 124 L 124 L Cancelled Potassium (3.5 - 5.1 mmol/L) 3.9 3.7 Cancelled Chloride (98 - 107 mmol/L) 95 L 91 L Cancelled Carbon Dioxide (22 - 30 mmol/L) 21 L 25 Cancelled Anion Gap (5 - 16) 8 8 Cancelled BUN (7 - 17 mg/dL) 2 L 3 L Cancelled Creatinine (0.5 - 1.0 mg/dL) 0.7 0.7 Cancelled Estimated GFR (>60 ml/min) > 60 > 60 BUN/Creatinine Ratio (7 - 25 %) 2.9 L Cancelled Glucose (65 - 99 mg/dL) 78 Calcium (8.4 - 10.2 mg/dL) 8.3 L Phosphorus (2.5 - 4.5 mg/dL) 3.1 Magnesium (1.6 - 2.3 mg/dL) 1.9 Total Bilirubin (0.2 - 1.3 mg/dL) 0.8 AST (14 - 36 U/L) 16 ALT (9 - 52 U/L) 28 Albumin (3.5 - 5.0 g/dL) 2.9 L Hematology CBC w Diff NO MAN DIFF REQ WBC (4.8 - 10.8 /CUMM) 6.0 RBC (4.20 - 5.40 /CUMM) 3.79 L Hgb (12.0 - 16.0 G/DL) 11.6 L Hct (37 - 47 %) 33.2 L MCV (81.0 - 99.0 FL) 87.6 MCH (27.0 - 31.0 PG) 30.6 MCHC (33.0 - 37.0 G/DL) 34.9 RDW (11.5 - 14.5 %) 13.8 Plt Count (130 - 400 /CUMM) 321 MPV (7.4 - 10.4 FL) 7.2 L Gran % (42.2 - 75.2 %) 76.4 H Lymphocytes % (20.5 - 51.1 %) 15.6 L Monocytes % (1.7 - 9.3 %) 6.6 Eosinophils % (0 - 5 %) 1.0 Basophils % (0.0 - 2.0 %) 0.4 Absolute Granulocytes (1.4 - 6.5 /CUMM) 4.6 Absolute Lymphocytes (1.2 - 3.4 /CUMM) 0.9 L Absolute Monocytes (0.10 - 0.60 /CUMM) 0.4 Absolute Eosinophils (0.0 - 0.7 /CUMM) 0.1 Absolute Basophils (0.0 - 0.2 /CUMM) 0 10/26 10/25 10/25 10/25 10/25 0030 2110 1659 1421 1345 Chemistry Sodium (137 - 145 mmol/L) 123 L 122 L 124 L 126 L Cancelled Potassium (3.5 - 5.1 mmol/L) 3.4 L 3.3 L 3.3 L 3.8 Cancelled Chloride (98 - 107 mmol/L) 92 L 90 L 91 L 93 L Cancelled Carbon Dioxide (22 - 30 mmol/L) 25 23 23 25 Cancelled Anion Gap (5 - 16) 6 9 10 7 Cancelled BUN (7 - 17 mg/dL) 3 L 3 L 4 L 4 L Cancelled Creatinine (0.5 - 1.0 mg/dL) 0.6 0.6 0.7 0.7 Cancelled Estimated GFR (>60 ml/min) > 60 > 60 > 60 > 60 BUN/Creatinine Ratio (7 - 25 %) 5.0 L 5.0 L 5.7 L 5.7 L Cancelled 10/25 10/25 10/25 10/25 10/25 1143 1100 0940 0900 0820 Chemistry Sodium (137 - 145 mmol/L) 126 L Cancelled 132 L Potassium (3.5 - 5.1 mmol/L) 3.9 Cancelled 3.7 Chloride (98 - 107 mmol/L) 93 L Cancelled 95 L Carbon Dioxide (22 - 30 mmol/L) 26 Cancelled 26 Anion Gap (5 - 16) 8 Cancelled 11 BUN (7 - 17 mg/dL) 4 L Cancelled 4 L Creatinine (0.5 - 1.0 mg/dL) 0.7 Cancelled 0.7 Estimated GFR (>60 ml/min) > 60 > 60 BUN/Creatinine Ratio (7 - 25 %) 5.7 L Cancelled 5.7 L Urines Urine Osmolality (300 - 1000 MOSM/KG) 62 L Ur Random Creatinine (mg/dL) Cancelled 13.0 Ur Random Sodium (30 - 90 mmol/L) Cancelled 11 L Ur Random Potassium (mmol/L) Cancelled 3.9 Fraction Sodium Excret (<1% %) Cancelled 0.4 10/25 10/25 10/25 10/25 0725 0712 0620 0500 Chemistry Sodium (137 - 145 mmol/L) 133 L Cancelled Potassium Cancelled Chloride Cancelled Carbon Dioxide Cancelled Anion Gap Cancelled BUN Cancelled Creatinine Cancelled Glucose Cancelled Calcium Cancelled Phosphorus Cancelled Magnesium Cancelled Total Bilirubin Cancelled AST Cancelled ALT Cancelled Albumin Cancelled Urines Urine Osmolality Cancelled Urine Total Volume Cancelled Ur Sodium 24 Hour Cancelled Ur Potassium 24 Hour Cancelled 10/25 10/25 0257 0003 Chemistry Sodium (137 - 145 mmol/L) 127 L 126 L Potassium (3.5 - 5.1 mmol/L) 2.8 *L Chloride (98 - 107 mmol/L) 91 L Carbon Dioxide (22 - 30 mmol/L) 23 Anion Gap (5 - 16) 13 BUN (7 - 17 mg/dL) 6 L Creatinine (0.5 - 1.0 mg/dL) 0.7 Estimated GFR (>60 ml/min) > 60 Glucose (65 - 99 mg/dL) 117 H Calcium (8.4 - 10.2 mg/dL) 8.2 L Phosphorus (2.5 - 4.5 mg/dL) 2.1 L Magnesium (1.6 - 2.3 mg/dL) 2.4 H Total Bilirubin (0.2 - 1.3 mg/dL) 1.5 H AST (14 - 36 U/L) 20 ALT (9 - 52 U/L) 28 Albumin (3.5 - 5.0 g/dL) 3.0 L TSH (0.270 - 4.200 uIU/mL) 1.360 Free T4 (0.78 - 2.44 ng/dL) 1.29 Cortisol AM Sample (4.46 - 22.7 ug/dL) 13.3 Hematology CBC w Diff NO MAN DIFF REQ WBC (4.8 - 10.8 /CUMM) 6.1 RBC (4.20 - 5.40 /CUMM) 3.75 L Hgb (12.0 - 16.0 G/DL) 11.4 L Hct (37 - 47 %) 33.0 L MCV (81.0 - 99.0 FL) 88.0 MCH (27.0 - 31.0 PG) 30.3 MCHC (33.0 - 37.0 G/DL) 34.4 RDW (11.5 - 14.5 %) 13.6 Plt Count (130 - 400 /CUMM) 323 MPV (7.4 - 10.4 FL) 6.8 L Gran % (42.2 - 75.2 %) 80.4 H Lymphocytes % (20.5 - 51.1 %) 13.6 L Monocytes % (1.7 - 9.3 %) 5.2 Eosinophils % (0 - 5 %) 0.5 Basophils % (0.0 - 2.0 %) 0.3 Absolute Granulocytes (1.4 - 6.5 /CUMM) 4.9 Absolute Lymphocytes (1.2 - 3.4 /CUMM) 0.8 L Absolute Monocytes (0.10 - 0.60 /CUMM) 0.3 Absolute Eosinophils (0.0 - 0.7 /CUMM) 0 Absolute Basophils (0.0 - 0.2 /CUMM) 0 10/24 10/24 2245 2225 Urines Urine Color (YEL,AMB,STR) YEL Urine Clarity (CLEAR) CLEAR Urine pH (5.0 - 8.0) 6.5 Ur Specific [place] (1.001 - 1.035) <= 1.005 Urine Protein (NEG,<30 MG/DL) NEG Urine Ketones (NEG) TRACE H Urine Nitrite (NEG) NEG Urine Bilirubin (NEG) NEG Urine Urobilinogen (0.1 - 1.0 EU/dl) 0.2 Ur Leukocyte Esterase (NEG) SMALL H Ur Microscopic SEDIMENT EXAMINED Urine RBC (0 - 5 /HPF) RARE Urine WBC (0 - 2 /HPF) 1-3 H Urine Bacteria (NEG/NONE) FEW H Urine Hemoglobin (NEG) TRACE-INTACT Urine Osmolality (300 - 1000 MOSM/KG) 44 L Ur Random Creatinine (mg/dL) 8.5 Ur Random Sodium (30 - 90 mmol/L) 7 L Ur Random Potassium (mmol/L) 4.1 Fraction Sodium Excret (<1% %) 0.6 Urine Glucose (N MG/DL) NEG 10/25 2123 Chemistry Sodium (137 - 145 mmol/L) 117 *L Potassium (3.5 - 5.1 mmol/L) 3.2 L Chloride (98 - 107 mmol/L) 82 L Carbon Dioxide (22 - 30 mmol/L) 24 Anion Gap (5 - 16) 11 BUN (7 - 17 mg/dL) 7 Creatinine (0.5 - 1.0 mg/dL) 0.8 Estimated GFR (>60 ml/min) > 60 BUN/Creatinine Ratio (7 - 25 %) 8.8 Glucose (65 - 99 mg/dL) 88 Serum Osmolality (285 - 295 MOSM/KG) 243 L Calcium (8.4 - 10.2 mg/dL) 8.1 L Magnesium (1.6 - 2.3 mg/dL) 1.3 L Total Bilirubin (0.2 - 1.3 mg/dL) 1.5 H AST (14 - 36 U/L) 24 ALT (9 - 52 U/L) 34 Alkaline Phosphatase (<127 U/L) 86 Troponin I (< 0.11 ng/ml) 0.01 Total Protein (6.3 - 8.2 g/dL) 6.0 L Albumin (3.5 - 5.0 g/dL) 3.2 L Globulin (1.9 - 4.2 gm/dL) 2.8 Albumin/Globulin Ratio (1.1 - 2.2 %) 1.1 Hematology CBC w Diff NO MAN DIFF REQ WBC (4.8 - 10.8 /CUMM) 7.6 RBC (4.20 - 5.40 /CUMM) 3.96 L Hgb (12.0 - 16.0 G/DL) 12.0 Hct (37 - 47 %) 34.9 L MCV (81.0 - 99.0 FL) 88.1 MCH (27.0 - 31.0 PG) 30.4 MCHC (33.0 - 37.0 G/DL) 34.5 RDW (11.5 - 14.5 %) 13.5 Plt Count (130 - 400 /CUMM) 334 MPV (7.4 - 10.4 FL) 6.5 L Gran % (42.2 - 75.2 %) 82.1 H Lymphocytes % (20.5 - 51.1 %) 11.7 L Monocytes % (1.7 - 9.3 %) 5.2 Eosinophils % (0 - 5 %) 0.5 Basophils % (0.0 - 2.0 %) 0.5 Absolute Granulocytes (1.4 - 6.5 /CUMM) 6.2 Absolute Lymphocytes (1.2 - 3.4 /CUMM) 0.9 L Absolute Monocytes (0.10 - 0.60 /CUMM) 0.4 Absolute Eosinophils (0.0 - 0.7 /CUMM) 0 Absolute Basophils (0.0 - 0.2 /CUMM) 0 Toxicology Serum Alcohol (<10 MG/DL) < 10.0
--- NOTE | 2017-10-27 16:41 | Cons- Psychiatry ---
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 Pt was discharged in late September with improved sodium and directions to fluid restrict. According to family she has followed directions. Hospital Course: Pt is doing well with improving sodium level. She is slightly agitated. Laboratory Tests 10/27 10/27 10/26 10/26 1228 0350 2146 1750 Chemistry Sodium (137 - 145 mmol/L) 131 L 129 L 127 L 126 L Potassium (3.5 - 5.1 mmol/L) 4.5 4.4 3.3 L 3.8 Chloride (98 - 107 mmol/L) 96 L 99 94 L 90 L Carbon Dioxide (22 - 30 mmol/L) 25 22 24 25 Anion Gap (5 - 16) 9 8 8 12 BUN (7 - 17 mg/dL) 5 L 3 L 3 L 2 L Creatinine (0.5 - 1.0 mg/dL) 0.9 0.7 0.7 0.8 Estimated GFR (>60 ml/min) > 60 > 60 > 60 > 60 BUN/Creatinine Ratio (7 - 25 %) 5.6 L 4.3 L 2.5 L Glucose (65 - 99 mg/dL) 90 Calcium (8.4 - 10.2 mg/dL) 7.8 L Phosphorus (2.5 - 4.5 mg/dL) 3.7 Magnesium (1.6 - 2.3 mg/dL) 1.8 Total Bilirubin (0.2 - 1.3 mg/dL) 0.9 AST (14 - 36 U/L) 23 ALT (9 - 52 U/L) 23 Albumin (3.5 - 5.0 g/dL) 2.6 L MSE: "Toki" is in a franko chair with a sitter. She is in NAD. She is oriented to self and . Does not know where she is, what year it is, or what street she [place]. Her thought process is linear and she displays no delusions SI or HI. Asks for her daughter several times and becomes upset stating she would like to leave. Raises her voice. Somewhat redirectable. Irritable, more so than last time I saw her. Insight and judgment poor 2/2 profound memory loss. A/ 77 y/o F here with hyponatremia 2/2 polydipsia. Delirium on dementia with mild behavioral aspects. -Labs consistent with polydipsia. I stopped her celexa last visit in case it was playing a role. -Would stop thorazine re: black box warning, orthostatic hypotension. If it becomes a problem again there are other medications she can try for chronic hiccups. -Would not use seroquel in the setting of delirium on dementia re: anticholinergic. -Would restart risperdal 0.5 BID for her agitation. -Needs sitter as she is a fall risk Jazzy #[phone] Page with any questions.
[2017-10-27 17:58] VITALS: BP 120/64
[2017-10-27 22:27] VITALS: BP 120/80
[2017-10-28 06:00] VITALS: BP 122/76
--- NOTE | 2017-10-28 07:35 | PN- Housestaff ---
Subjective Follow-up For: Hyponatremia AMS Subjective: No complaints or acute events overnight Review of Systems Constitutional: Reports: see HPI. Objective Last 24 Hrs of Vital Signs/I&O Vital Signs Date Time Temp Pulse Resp B/P B/P Pulse O2 O2 Flow FiO2 Mean Ox Delivery Rate 10/28 1440 97.3 81 20 102/50 98 /08 0925 68 102/62 /08 0924 68 102/62 /08 0800 Room Air 10/28 0600 99.6 67 20 122/76 98 Room Air 10/27 2227 98.3 73 20 120/80 99 Room Air / 1758 98.6 83 20 120/64 94 Room Air Intake & Output 10/28 1600 10/28 0800 10/28 0000 Intake Total 10 480 Output Total Balance 10 480 Intake, IV 10 Intake, Oral 480 Physical Exam General Appearance: Alert, No Acute Distress, Disoriented to place and time Cardiovascular: Regular Rate, Normal S1, Normal S2 Lungs: Clear to Auscultation, Normal Air Movement Abdomen: Normal Bowel Sounds, Soft, No Tenderness Current Medications: Current Medications Sig/Dennise Start time Last Medication Dose Route Stop Time Status Admin Amlodipine Besylate 5 MG DAILY 10/25 1528 AC 10/28 PO 0924 Enoxaparin Sodium 40 MG DAILY 10/25 0900 AC 10/28 SC 0923 Levothyroxine Sodium 0.0375 MG DAILY AC 10/25 0700 AC 10/27 PO 0611 Losartan Potassium 50 MG DAILY 10/25 1528 AC 10/28 PO 0925 Memantine 10 MG BID 10/25 0900 AC 10/28 PO 0924 Omeprazole 20 MG DAILY AC 10/25 1042 AC 10/27 PO 0611 Ondansetron HCl 4 MG Q6P PRN 10/26 2030 AC 10/26 IV 2019 Polyethylene Glycol 17 GM DAILY PRN 10/27 0815 AC 10/27 PO 1030 Risperidone 0.5 MG BID 10/27 1359 AC 10/28 PO 0923 Last 24 Hrs of Lab/Jimmy Results Last 24 Hrs of Labs/Mics: Laboratory Tests 10/28/17 0710: Anion Gap 7, Estimated GFR 53 L, Glucose 94, Calcium 8.9, Phosphorus 3.8, Magnesium 2.1, Total Bilirubin 0.6, AST 17, ALT 26, Albumin 2.8 L, CBC w Diff NO MAN DIFF REQ, RBC 3.90 L, MCV 88.4, MCH 30.5, MCHC 34.5, RDW 14.0, MPV 6.9 L, Gran % 61.5, Lymphocytes % 28.1, Monocytes % 8.5, Eosinophils % 1.5, Basophils % 0.4, Absolute Granulocytes 3.3, Absolute Lymphocytes 1.5, Absolute Monocytes 0.5, Absolute Eosinophils 0.1, Absolute Basophils 0 Assessment/Plan Assessment: 77-year-old female with past medical history of dementia, brain tumors- schwannoma, meningioma, hypertension, hyperlipidemia, chronic hyponatremia was treated for acute on chronic symptomatic hyponatremia downgraded from the ICU to [facility] #AMS #Hyponatremia Plan: BEP in a.m if stable, discharge home Continue Risperidone We held Thorazine and celexa as per psych given her hyponatremia Avoid rapid correction of sodium 6-8 meQ/24hr (recent rapid correction in ICU but patient asymptomatic) Continue 1L fluid restriction Nephro recommendations appreciated Psych recommendations appreciated Diet: Regular, 1L fluid restriction DVT ppx: Enoxaparin Code: Full Problem List: 1. Hyponatremia 2. Altered mental status, unspecified Pain Ratin Pain Location: NA Pain Goal: Remain pain free Pain Plan: NA Tomorrow's Labs & Rationales: BEP
[2017-10-28 07:39] LABS: ABSOLUTE BASOPHIL COUNT 0 /CUMM (0.0-0.2); ABSOLUTE EOSINOPHIL COUNT 0.1 /CUMM (0.0-0.7); ABSOLUTE GRANULOCYTE CT 3.3 /CUMM (1.4-6.5); ABSOLUTE LYMPH COUNT 1.5 /CUMM (1.2-3.4); ABSOLUTE MONOCYTE COUNT 0.5 /CUMM (0.10-0.60); BASOPHIL % 0.4 % (0.0-2.0); EOSINOPHIL % 1.5 % (0-5); GRANULOCYTE % 61.5 % (42.2-75.2); HEMATOCRIT 34.5 % (37-47); MEAN CORPUSCULAR HGB 30.5 PG (27.0-31.0); MEAN CORPUSCULAR HGB CONC 34.5 G/DL (33.0-37.0); MEAN CORPUSCULAR VOLUME 88.4 FL (81.0-99.0); MEAN PLATELET VOLUME 6.9 FL (7.4-10.4); PLATELET COUNT 393 /CUMM (130-400); WHITE BLOOD CELL COUNT 5.3 /CUMM (4.8-10.8)
--- NOTE | 2017-10-28 11:03 | PN- Att Addend ---
Attending Addendum Attending Brief Note Patient seen and examined, offers no complaints. She denies any aches or pains. Patient was transferred out of ICU. She was admitted with confusion and found to have hyponatremia. Vital Signs Date Time Temp Pulse Resp B/P B/P Pulse O2 O2 Flow FiO2 Mean Ox Delivery Rate 10/28 924 68 102/62 10/28 0924 68 102/62 10/28 0800 Room Air 10/28 06 99.6 67 20 122/76 98 Room Air 10/27 2227 98.3 73 20 120/80 99 Room Air 10/27 1758 98.6 83 20 120/64 94 Room Air on exam; awake, nad. cv; s1,s2, rrr resp; clear abd; soft, nt, bs+ ext; no edema Laboratory Tests 10/28 10/27 0710 1228 Chemistry Sodium (137 - 145 mmol/L) 130 L 131 L Potassium (3.5 - 5.1 mmol/L) 4.3 4.5 Chloride (98 - 107 mmol/L) 96 L 96 L Carbon Dioxide (22 - 30 mmol/L) 26 25 Anion Gap (5 - 16) 7 9 BUN (7 - 17 mg/dL) 7 5 L Creatinine (0.5 - 1.0 mg/dL) 1.0 0.9 Estimated GFR (>60 ml/min) 53 L > 60 BUN/Creatinine Ratio (7 - 25 %) 5.6 L Glucose (65 - 99 mg/dL) 94 Calcium (8.4 - 10.2 mg/dL) 8.9 Phosphorus (2.5 - 4.5 mg/dL) 3.8 Magnesium (1.6 - 2.3 mg/dL) 2.1 Total Bilirubin (0.2 - 1.3 mg/dL) 0.6 AST (14 - 36 U/L) 17 ALT (9 - 52 U/L) 26 Albumin (3.5 - 5.0 g/dL) 2.8 L Hematology CBC w Diff NO MAN DIFF REQ WBC (4.8 - 10.8 /CUMM) 5.3 RBC (4.20 - 5.40 /CUMM) 3.90 L Hgb (12.0 - 16.0 G/DL) 11.9 L Hct (37 - 47 %) 34.5 L MCV (81.0 - 99.0 FL) 88.4 MCH (27.0 - 31.0 PG) 30.5 MCHC (33.0 - 37.0 G/DL) 34.5 RDW (11.5 - 14.5 %) 14.0 Plt Count (130 - 400 /CUMM) 393 MPV (7.4 - 10.4 FL) 6.9 L Gran % (42.2 - 75.2 %) 61.5 Lymphocytes % (20.5 - 51.1 %) 28.1 Monocytes % (1.7 - 9.3 %) 8.5 Eosinophils % (0 - 5 %) 1.5 Basophils % (0.0 - 2.0 %) 0.4 Absolute Granulocytes (1.4 - 6.5 /CUMM) 3.3 Absolute Lymphocytes (1.2 - 3.4 /CUMM) 1.5 Absolute Monocytes (0.10 - 0.60 /CUMM) 0.5 Absolute Eosinophils (0.0 - 0.7 /CUMM) 0.1 Absolute Basophils (0.0 - 0.2 /CUMM) 0 A/P; 77-year-old female with past medical history of dementia, brain tumors- schwannoma, meningioma, hypertension, hyperlipidemia, chronic hyponatremia was treated for acute on chronic symptomatic hyponatremia. Patient is transferred out of ICU. Sodium level today is 130. Patient currently on thousand cc fluid restriction. We'll continue that and continue to monitor sodium. Her baseline sodium is in the low 130s range. Celexa was stopped previously. Patient has been resumed back on Risperdal as needed. Continue the rest of the management. Patient has been ambulating with nursing without any issue. Patient on Lovenox for DVT prophylaxis. Once sodium is improved slightly 132 and above range and she can be discharged home over the weekend.
[2017-10-28 14:40] VITALS: BP 102/50
--- NOTE | 2017-10-28 15:09 | Patient Discharge Instructions ---
Discharge Instructions General Discharge Information You were seen/treated for: Hyponatremia You had these procedures: none Special Instructions: Follow up with Nephrology-Dr. Ribera within 1 of discharge Follow up with your PCP within 1 week of discharge Follow up with Psych within 1 week of discharge Please have your BEP checked on 11/02/17 Diet Continue normal diet: Yes Recommended Diet: 1000cc fluid restriction Activity Full Activity/No Limits: Yes Acute Coronary Syndrome Inclusion Criteria At DC or during hospital stay patient has or had the following: ACS DIAGNOSIS No Discharge Core Measures Meds if any: Prescribed or Continued at Discharge Meds if any: NOT Prescribed or Continued at Discharge Congestive Heart Failure Inclusion Criteria At DC or during hospital stay patient has or had the following: CHF DIAGNOSIS No Discharge Core Measures Meds if any: Prescribed or Continued at Discharge Meds if any: NOT Prescribed or Continued at Discharge Cerebrovascular accident Inclusion Criteria At DC or during hospital stay patient has or had the following: CVA/TIA Diagnosis No Discharge Core Measures Meds if any: Prescribed or Continued at Discharge Meds if any: NOT Prescribed or Continued at Discharge Venous thromboembolism Inclusion Criteria VTE Diagnosis No VTE Type NONE VTE Confirmed by (Test) NONE Discharge Core Measures - Per Current guidelines, there needs to be overlap - treatment for the first 5 days of Warfarin therapy. - If discharged on Warfarin prior to 5 days of - overlap therapy, the patient will need to be - assessed for post discharge needs including - *Post discharge parental anticoagulation - *Warfarin and/or parental anticoagulation education - *Follow up date to check INR post discharge At least 5 days overlap therapy as Inpatient No Meds if any: Prescribed or Continued at Discharge Note: Overlap Therapy is Warfarin and Anticoagulant Meds if any: NOT Prescribed or Continued at Discharge
[2017-10-28] MEDS ORDERED: RISPERIDONE0.5 M1 PO (15:35)
--- NOTE | 2017-10-28 16:38 | Transfer of Care Summary ---
Hospital Course Course Hospital Course: 77-year-old female with past medical history of dementia, brain tumors- schwannoma, meningioma, hypertension, hyperlipidemia, chronic hyponatremia was treated for acute on chronic symptomatic hyponatremia and is being managed in the ICU. Her current issues are as follows: Patient is currently being treated in the ICU for the following issues: NEPHROLOGY # Symptomatic Hyponatremia, acute on chronic, with rapid correction Patient initially presented with symptomatic sodium level of 117. The clinical picture, her history, and labs are suggestive of polydipsia. Sodium level got corrected rapidly to 133 with fluid restriction, and continued her home dose of sodium supplement, following which she was started on dextrose IV fluids and fluid restriction relaxed, to revert the overcorrection. Her levels are now trending up slowly and safely, latest being 131. -Continue diet with 1200 mL of fluid restriction -Continue to hold her home dose of salt tablets even upon discharge -Discontinue Lasix 20 mg PO from home medication which was prescribed by the ED and she was taking it once every three days upon discharge -Check BEP every day only NEUROLOGY # Alzheimer's disease: patient is on Memantine and has perseverance symptoms. According to Psychiatry service, she has history of polydipsia as well, and this needs to be watched for evne upon discharge. Psychiatry service has been consulted. PSYCHIATRY #H/o dementia. Patient's mentation has been waxing and waning. She has received Seroquel daily, but once her sodium levels have normalized, probably would benefit from psychiatry consult as she is off her psych meds currently (thorazine) which was apperantly give for intractable hiccups. Misc: Diet: Heart healthy diet with fluid restriction 1200 ml/24 hrs DVT prophylaxis: SQ Lovenox Code status: Full code IV access: Peripheral Family update: Updated the daughter about patient's care and transfer to gen med floor. She is concerned about the cause of the low sodium and does not seem convinced about polydipsia as a possibility. She mentioned yesterday that the patient was on Lasix 20 mg PO once every three days as well and the last dose was last week. I discussed that with Feed House Supervisor as well. Assessment/Plan: as noted above
[2017-10-28 22:01] VITALS: BP 129/79
[2017-10-29 06:20] VITALS: BP 132/60
--- NOTE | 2017-10-29 08:03 | PN- Housestaff ---
Subjective Follow-up For: Hyponatremia AMS Subjective: patient seen and examined. Awake, alert but not oriented. Denies being in pain. No active complaints. Review of Systems Constitutional: Reports: no symptoms. Objective Last 24 Hrs of Vital Signs/I&O Vital Signs Date Time Temp Pulse Resp B/P B/P Pulse O2 O2 Flow FiO2 Mean Ox Delivery Rate 10/29 0848 98.5 83 18 132/60 10/29 0844 132/60 10/29 0620 98.5 83 18 132/60 97 Room Air 10/28 2201 98.2 75 20 129/79 98 Room Air 10/28 1440 97.3 81 20 102/50 98 Intake & Output 10/29 1600 10/29 0800 10/29 0000 Intake Total 200 200 Output Total Balance 200 200 Intake, Oral 200 200 Patient 117 lb Weight Weight Bed scale Measurement Method Physical Exam General Appearance: Alert, Cooperative, No Acute Distress, oriented x 0 Skin: No Rashes, No Breakdown Skin Temp/Moisture Exam: Warm/Dry Sepsis Skin Exam (color): Normal for Ethnicity HEENT: Atraumatic Cardiovascular: Normal S1, Normal S2, No Murmurs Lungs: Normal Air Movement Abdomen: Soft, No Tenderness Neurological: Normal Speech Extremities: No Edema Last 24 Hrs of Lab/Jimmy Results Last 24 Hrs of Labs/Mics: Laboratory Tests 10/29/17 0720: Anion Gap 8, Estimated GFR > 60, BUN/Creatinine Ratio 7.8, CBC w Diff NO MAN DIFF REQ, RBC 3.98 L, MCV 88.6, MCH 30.5, MCHC 34.4, RDW 14.0, MPV 7.2 L, Gran % 67.5, Lymphocytes % 22.7, Monocytes % 8.2, Eosinophils % 1.1, Basophils % 0.5, Absolute Granulocytes 3.5, Absolute Lymphocytes 1.2, Absolute Monocytes 0.4, Absolute Eosinophils 0.1, Absolute Basophils 0 Assessment/Plan Assessment: 77-year-old female with past medical history of dementia, brain tumors- schwannoma, meningioma, hypertension, hyperlipidemia, chronic hyponatremia was treated for acute on chronic symptomatic hyponatremia downgraded from the ICU to gen med Assessment: #AMS #Hyponatremia Plan: Her Na is improved. 134 today Continue Risperidone Hold Thorazine and celexa as per psych given her hyponatremia Continue 1L fluid restriction Patient stable to be discharged today Nephro recommendations appreciated Diet: Regular, 1L fluid restriction DVT ppx: Enoxaparin Code: Full Problem List: 1. Hyponatremia Pain Ratin Pain Location: none Pain Goal: Remain pain free Pain Plan: none Tomorrow's Labs & Rationales: BEP
[2017-10-29 08:35] LABS: ABSOLUTE BASOPHIL COUNT 0 /CUMM (0.0-0.2); ABSOLUTE EOSINOPHIL COUNT 0.1 /CUMM (0.0-0.7); ABSOLUTE GRANULOCYTE CT 3.5 /CUMM (1.4-6.5); ABSOLUTE LYMPH COUNT 1.2 /CUMM (1.2-3.4); ABSOLUTE MONOCYTE COUNT 0.4 /CUMM (0.10-0.60); BASOPHIL % 0.5 % (0.0-2.0); EOSINOPHIL % 1.1 % (0-5); GRANULOCYTE % 67.5 % (42.2-75.2); HEMATOCRIT 35.2 % (37-47); MEAN CORPUSCULAR HGB 30.5 PG (27.0-31.0); MEAN CORPUSCULAR HGB CONC 34.4 G/DL (33.0-37.0); MEAN CORPUSCULAR VOLUME 88.6 FL (81.0-99.0); MEAN PLATELET VOLUME 7.2 FL (7.4-10.4); PLATELET COUNT 405 /CUMM (130-400); RED BLOOD CELL CT 3.98 /CUMM (4.20-5.40); WHITE BLOOD CELL COUNT 5.3 /CUMM (4.8-10.8)
--- NOTE | 2017-10-29 08:44 | PN- Att Addend ---
Attending Addendum Attending Brief Note Patient seen and examined. Plan of care discussed with the medical team and the patient. Available lab work and radiology test reports were reviewed. Patient awake and pleasant but appears disoriented. Denies any new complaints. Otherwise appears comfortable laying in bed without any distress. Assessment * Hyponatremia-improving * History of hypertension * History of dementia * History of schwannoma * History of meningioma Plan * Patient can be discharged home with family today * She will need to continue 1000 mL fluid restriction per day * Repeat BEP should be done next week to follow-up sodium Exam: General: Patient awake alert but disoriented without any distress CVS: S1 plus S2 without any murmur or gallops Chest: Few scattered crepitation without any wheeze. There is no respiratory distress. Abdomen: Soft non-tender, bowel sound present, no guarding or rebound CUSHION FORMER: Awake alert without any focal neuro deficit and follows commands appropriately Extremities: No edema; no clubbing or cyanosis noted Current Medications Sig/Dennise Start time Last Medication Dose Route Stop Time Status Admin Amlodipine Besylate 5 MG DAILY 10/25 1528 AC 10/28 PO 0924 Enoxaparin Sodium 40 MG DAILY 10/25 0900 AC 10/28 SC 0923 Levothyroxine Sodium 0.0375 MG DAILY AC 10/25 0700 AC 10/29 PO 0522 Losartan Potassium 50 MG DAILY 10/25 1528 AC 10/28 PO 0925 Memantine 10 MG BID 10/25 0900 AC 10/28 PO 2046 Omeprazole 20 MG DAILY AC 10/25 1042 AC 10/27 PO 0611 Ondansetron HCl 4 MG Q6P PRN 10/26 2030 AC 10/26 IV 2019 Polyethylene Glycol 17 GM DAILY PRN 10/27 0815 AC 10/27 PO 1030 Risperidone 0.5 MG BID 10/27 1359 AC 10/28 PO 2046 Laboratory Tests 10/29/17 0720: Anion Gap 8, Estimated GFR > 60, BUN/Creatinine Ratio 7.8, CBC w Diff Pending, WBC Pending, RBC Pending, Hgb Pending, Hct Pending, MCV Pending, MCH Pending, MCHC Pending, RDW Pending, Plt Count Pending, MPV Pending 10/28/17 0710: Anion Gap 7, Estimated GFR 53 L, Glucose 94, Calcium 8.9, Phosphorus 3.8, Magnesium 2.1, Total Bilirubin 0.6, AST 17, ALT 26, Albumin 2.8 L, CBC w Diff NO MAN DIFF REQ, RBC 3.90 L, MCV 88.4, MCH 30.5, MCHC 34.5, RDW 14.0, MPV 6.9 L, Gran % 61.5, Lymphocytes % 28.1, Monocytes % 8.5, Eosinophils % 1.5, Basophils % 0.4, Absolute Granulocytes 3.3, Absolute Lymphocytes 1.5, Absolute Monocytes 0.5, Absolute Eosinophils 0.1, Absolute Basophils 0 10/27/17 1228: Anion Gap 9, Estimated GFR > 60, BUN/Creatinine Ratio 5.6 L 10/27/17 0350: Anion Gap 8, Estimated GFR > 60, Glucose 90, Calcium 7.8 L, Phosphorus 3.7, Magnesium 1.8, Total Bilirubin 0.9, AST 23, ALT 23, Albumin 2.6 L 10/26/17 2146: Anion Gap 8, Estimated GFR > 60, BUN/Creatinine Ratio 4.3 L 10/26/17 1750: Anion Gap 12, Estimated GFR > 60, BUN/Creatinine Ratio 2.5 L 10/26/17 1257: Anion Gap 8, Estimated GFR > 60, BUN/Creatinine Ratio 2.9 L 10/26/17 0940: Anion Gap 8, Estimated GFR > 60, BUN/Creatinine Ratio 2.9 L Vital Signs Date Time Temp Pulse Resp B/P B/P Pulse O2 O2 Flow FiO2 Mean Ox Delivery Rate 10/30 619 98.5 83 18 132/60 97 Room Air 10/28 2201 98.2 75 20 129/79 98 Room Air 10/28 1440 97.3 81 20 102/50 98 10/28 0925 68 102/62 10/29 923 68 102/62 Intake & Output 10/29 1600 10/29 0800 10/29 0000 Intake Total 200 200 Output Total Balance 200 200 Intake, Oral 200 200 Patient 117 lb Weight Weight Bed scale Measurement Method Laboratory Tests 10/30 719 Chemistry Sodium (137 - 145 mmol/L) 134 L Potassium (3.5 - 5.1 mmol/L) 4.3 Chloride (98 - 107 mmol/L) 99 Carbon Dioxide (22 - 30 mmol/L) 27 Anion Gap (5 - 16) 8 BUN (7 - 17 mg/dL) 7 Creatinine (0.5 - 1.0 mg/dL) 0.9 Estimated GFR (>60 ml/min) > 60 BUN/Creatinine Ratio (7 - 25 %) 7.8 Hematology CBC w Diff NO MAN DIFF REQ WBC (4.8 - 10.8 /CUMM) 5.3 RBC (4.20 - 5.40 /CUMM) 3.98 L Hgb (12.0 - 16.0 G/DL) 12.1 Hct (37 - 47 %) 35.2 L MCV (81.0 - 99.0 FL) 88.6 MCH (27.0 - 31.0 PG) 30.5 MCHC (33.0 - 37.0 G/DL) 34.4 RDW (11.5 - 14.5 %) 14.0 Plt Count (130 - 400 /CUMM) 405 H MPV (7.4 - 10.4 FL) 7.2 L Gran % (42.2 - 75.2 %) 67.5 Lymphocytes % (20.5 - 51.1 %) 22.7 Monocytes % (1.7 - 9.3 %) 8.2 Eosinophils % (0 - 5 %) 1.1 Basophils % (0.0 - 2.0 %) 0.5 Absolute Granulocytes (1.4 - 6.5 /CUMM) 3.5 Absolute Lymphocytes (1.2 - 3.4 /CUMM) 1.2 Absolute Monocytes (0.10 - 0.60 /CUMM) 0.4 Absolute Eosinophils (0.0 - 0.7 /CUMM) 0.1 Absolute Basophils (0.0 - 0.2 /CUMM) 0
[2017-10-29 08:48] VITALS: BP 132/60
[2017-10-29] MEDS ORDERED: PROTONIX40 M3 PO (13:52)
[2017-10-29] MEDS ORDERED: RISPERIDONE0.5 M1 PO (14:46)
--- NOTE | 2017-10-31 07:51 | Discharge Summary ---
Visit Information Visit Dates Admission Date: 10/24/17 Discharge Date: 10/29/17 Hospital Course Course Attending Physician: Cori Davis MD Primary Care Physician: Ermias Jackson MD Hospital Course: 77-year-old female with past medical history of dementia, brain tumors- schwannoma, meningioma, hypertension, hyperlipidemia, chronic hyponatremia was treated for acute on chronic symptomatic hyponatremia and is being managed in the ICU. Her current issues are as follows: Patient is currently being treated in the ICU for the following issues: NEPHROLOGY # Symptomatic Hyponatremia, acute on chronic, with rapid correction Patient initially presented with symptomatic sodium level of 117. The clinical picture, her history, and labs are suggestive of polydipsia. Sodium level got corrected rapidly to 133 with fluid restriction, and continued her home dose of sodium supplement, following which she was started on dextrose IV fluids and fluid restriction relaxed, to revert the overcorrection. Her levels are now trending up slowly and safely, latest being 131. -Continue diet with 1200 mL of fluid restriction -Continue to hold her home dose of salt tablets even upon discharge -Discontinue Lasix 20 mg PO from home medication which was prescribed by the ED and she was taking it once every three days upon discharge -Check BEP every day only NEUROLOGY # Alzheimer's disease: patient is on Memantine and has perseverance symptoms. According to Psychiatry service, she has history of polydipsia as well, and this needs to be watched for evne upon discharge. Psychiatry service has been consulted. PSYCHIATRY #H/o dementia. Patient's mentation has been waxing and waning. She has received Seroquel daily, but once her sodium levels have normalized, probably would benefit from psychiatry consult as she is off her psych meds currently (thorazine) which was apperantly give for intractable hiccups. Misc: Diet: Heart healthy diet with fluid restriction 1200 ml/24 hrs DVT prophylaxis: SQ Lovenox Code status: Full code IV access: Peripheral Family update: Updated the daughter about patient's care and transfer to [facility] and the [facility] floor. She is concerned about the cause of the low sodium and does not seem convinced about polydipsia as a possibility. She mentioned yesterday that the patient was on Lasix 20 mg PO once every three days as well and the last dose was last week. I discussed that with Rug Under[employer] Machine Operator as well. Allergies: Coded Allergies: Penicillins (Severe, CONVULSIONS 12/29/15) STATINS ("REAL BAD BODY ACHES, CAN'T MOVE" 12/29/15) Discharge Instructions Medications at Discharge Discharge Medications: Stop taking the following medications: Furosemide (Lasix) 20 MG TABLET ORAL DAILY as needed for pedal edema Qty = 30 Sodium Chloride (Sodium Chloride) 1 GRAM TABLET ORAL TWICE DAILY Qty = 30 Chlorpromazine HCl (Chlorpromazine HCl) 10 MG TABLET ORAL DAILY Continue taking these medications: Ergocalciferol (Vitamin D2) (Vitamin D2) 50,000 UNIT CAPSULE 1 Capsule ORAL EVERY TUESDAY Comments: Last Taken:NOT GIVEN THIS ADMISSION Time: Memantine HCl (Namenda) 10 MG TABLET 1 Tablet ORAL TWICE DAILY Comments: Last Taken: 10/29/17 Time: 8:44 AM Pantoprazole Sodium (Protonix) 40 MG TABLET.DR 1 Tablet ORAL AT BEDTIME Comments: NOT GIVEN IN HOSPITAL Amlodipine Besylate (Amlodipine Besylate) 5 MG TABLET 5 Milligram ORAL DAILY Qty = 30 Comments: Last Taken: 10/29/17 Time:8:44A.M Losartan Potassium (Losartan Potassium) 50 MG TABLET 50 Milligram ORAL DAILY Qty = 30 Comments: Last Taken: 10/29/17 Time: 8:48AM Levothyroxine Sodium (Levothyroxine Sodium) 25 MCG TABLET 1.5 Tablet ORAL DAILY Comments: Last Taken: 10/29/17 Time: 5:22AM Start taking the following new medications: Risperidone (Risperidone) 0.5 MG TABLET 0.5 Milligram ORAL TWICE DAILY Qty = 60 No Refills Comments: Last Taken:10/29/17 Time:8:47A.M
== END 2017-10-29 14:46 | disposition home health service (06) | DRG 641 ==
LOC: ERH 20:42 → ERHI 22:30 → CRI 22:30 → 2NA 22:30 → ENRESERV 10-25 00:11 → CRI 10-25 00:24 → ENTRNSPT 10-27 17:10 → EDTRNSPTSTS 10-27 17:13 → EDTRNSPT 10-27 17:13 → 2NA 10-27 17:26 → CMPTRNSPT 10-27 17:30 → 2NA 10-28 08:51 → ENPENDDIS 10-29 13:18 → 2NA 10-29 14:46
PROVIDERS: Emergency Medicine; Radiology Vascular & Interventional Radiology; Student in an Organized Health Care Education/Training Program
DX: E87.1 Hypo-osmolality and hyponatremia (principal); F02.81 Dementia in other diseases classified elsewhere, unspecified severity, with behavioral disturbance; F05 Delirium due to known physiological condition; E78.5 Hyperlipidemia, unspecified; K21.9 Gastro-esophageal reflux disease without esophagitis; E03.9 Hypothyroidism, unspecified; Z90.710 Acquired absence of both cervix and uterus; R63.1 Polydipsia; G30.9 Alzheimer's disease, unspecified; E87.6 Hypokalemia; I16.0 Hypertensive urgency; I10 Essential (primary) hypertension; E83.42 Hypomagnesemia; Z88.8 Allergy status to other drugs, medicaments and biological substances; Z86.011 Personal history of benign neoplasm of the brain; Z87.891 Personal history of nicotine dependence; Z88.0 Allergy status to penicillin
CPT/HCPCS: 2NAP; 84133; 84300; CCU; ERO; 36415; 36592; 71045; 74018; 81001; 82436; 82570; 87070; 87086; 93005; 93010; 99291; G0480; J0360; J1650; J2405; J2597; J7060; Q0161